=== PATIENT | male | born 1990 | race African-American/Black ===

== ENCOUNTER 2017-05-07 16:43 | Emergency (ER) | payer OTHER ==
[~2017-05-07] VITALS: Ht 175.3 cm; Wt 81.6 kg
[~2017-05-07 16:43] MED LIST: ALPR0.25; BENZ0.5T3; RISP1TAB7
--- NOTE | 2017-05-07 16:50 | NUR ---
aaox3, came to ER for medical clearance. patient is going to [facility] for voluntary admission. Denies any SI or HI at this moment. Skin is warm and non diaphoretic. Resp is even and unlabored with NAD noted. Awaiting MD for eval.
[2017-05-07 17:10] LABS: APPEARANCE,URINE Clear (CLEAR); BILIRUBIN,URINE Negative (NEGATIVE); BLOOD, URINE Negative Ery/uL (NEGATIVE); COLOR,URINE Yellow (YELLOW); KETONES,URINE Negative (NEGATIVE); LEUKOCYTE ESTERASE ,URINE Negative (NEGATIVE); NITRITE, URINE Negative (NEGATIVE); PH,URINE 5.5 (5.0-8.0); PROTEIN,URINE Negative (NEGATIVE); UGLUCOSE Negative (NEGATIVE); UROBILINOGEN,URINE 0.2 EU/dL (0.2)
[2017-05-07 17:17] LABS: BASOPHILS # (AUTO) 0.2 /CMM (0.0-0.2); BASOPHILS % (AUTO) 2.6 % (0.0-2.0); EOSINOPHILS # (AUTO) 0.7 /CMM (0.0-0.7); EOSINOPHILS % (AUTO) 9.4 % (0.0-6.0); HEMATOCRIT 44 % (39-51); HEMOGLOBIN 14.8 g/dL (13.5-17.5); LYMPHOCYTES # (AUTO) 2.4 /CMM (0.8-4.8); LYMPHOCYTES % (AUTO) 32.1 % (20.0-44.0); MEAN CORPUSCULAR HEMOGLOBIN 29 PG (26.0-33.0); MEAN CORPUSCULAR HGB CONC 34 g/dl (31.0-36.0); MEAN CORPUSCULAR VOLUME 86 fL (80-96); MONOCYTES # (AUTO) 0.6 /CMM (0.1-1.30); MONOCYTES % (AUTO) 8.4 % (2.0-12.0); NEUTROPHILS # (AUTO) 3.4 /CMM (1.8-8.9); NEUTROPHILS % (AUTO) 47.5 % (43.0-81.0); PLATELET COUNT (AUTO) 221 /CMM (150-450); RDW COEFFICIENT OF VARIATION 12.8 (11.5-15.0); RED BLOOD CELL COUNT(AUTO) 5.11 MIL/uL (4.5-6.0); WHITE BLOOD COUNT (AUTO) 7.4 K/uL (4.3-11.0)
[2017-05-07 17:23] LABS: CALCIUM, SERUM 8.4 mg/dL (8.5-10.1); CARBON DIOXIDE 29 mmol/L (21-32); CHLORIDE 105 mmol/L (98-107); CREATININE 0.8 mg/dL (0.6-1.3); GLUCOSE 95 mg/dL (74-106); POTASSIUM 3.7 mmol/L (3.5-5.1); SODIUM SERUM 139 mmol/L (136-145); UREA NITROGEN, BLOOD 7 mg/dL (7-18)
[2017-05-07 17:29] LABS: ALANINE AMINOTRANSFERASE 27 U/L (12-78); ALBUMIN 3.5 g/dL (3.4-5.0); ALCOHOL, BLOOD < 3 mg/dL (0-0); ALKALINE PHOSPHATASE 54 U/L (46-116); ASPARTATE AMINOTRANSFERASE 19 U/L (15-37); BILIRUBIN,DIRECT 0.1 mg/dL (0.0-0.2); BILIRUBIN,TOTAL 0.4 mg/dL (0.2-1.0); TOTAL PROTEIN, SERUM 6.4 g/dL (6.4-8.2)
[2017-05-07 17:32] LABS: ACETAMINOPHEN < 2 ug/ml (10-30); SALICYLATE < 2.8 mg/dL (2.8-20.0)
[2017-05-07 19:43] VITALS: BP 113/66
== END 2017-05-07 19:46 | disposition home or self-care (01) ==
LOC: ER 16:45
DX: F29 Unspecified psychosis not due to a substance or known physiological condition (principal); F20.9 Schizophrenia, unspecified; F31.9 Bipolar disorder, unspecified; F41.9 Anxiety disorder, unspecified; F17.200 Nicotine dependence, unspecified, uncomplicated; F12.10 Cannabis abuse, uncomplicated
CPT/HCPCS: 36415; 80048-TC; 80076-TC; 80305; 81000-TC; 85025-TC; A4606; G0480; Z7610

== ENCOUNTER 2017-06-05 14:46 | Emergency (ER) | payer OTHER ==
[~2017-06-05] VITALS: Ht 175.3 cm; Wt 77.1 kg
--- NOTE | 2017-06-05 15:00 | NUR ---
WALKED IN FROM [facility] FOR MEDICAL CLEARANCE PRIOR TO VOLUNTARY PSYCH ADMISSIONS. DENIES ANY MEDICAL COMPLAINT.
--- NOTE | 2017-06-05 15:35 | NUR ---
dr hernandez at bedside for eval.
[2017-06-05 15:50] LABS: APPEARANCE,URINE Clear (CLEAR); BILIRUBIN,URINE Negative (NEGATIVE); BLOOD, URINE Negative Ery/uL (NEGATIVE); KETONES,URINE Trace (NEGATIVE); LEUKOCYTE ESTERASE ,URINE Negative (NEGATIVE); NITRITE, URINE Negative (NEGATIVE); PROTEIN,URINE Trace mg/dl (NEGATIVE); UGLUCOSE Negative (NEGATIVE)
[2017-06-05 15:51] LABS: BASOPHILS # (AUTO) 0.1 /CMM (0.0-0.2); EOSINOPHILS # (AUTO) 0.7 /CMM (0.0-0.7); EOSINOPHILS % (AUTO) 9.9 % (0.0-6.0); HEMATOCRIT 44 % (39-51); HEMOGLOBIN 14.8 g/dL (13.5-17.5); LYMPHOCYTES # (AUTO) 2.1 /CMM (0.8-4.8); LYMPHOCYTES % (AUTO) 30.1 % (20.0-44.0); MEAN CORPUSCULAR HEMOGLOBIN 28 PG (26.0-33.0); MEAN CORPUSCULAR HGB CONC 33 g/dl (31.0-36.0); MEAN CORPUSCULAR VOLUME 85 fL (80-96); MONOCYTES # (AUTO) 0.4 /CMM (0.1-1.30); MONOCYTES % (AUTO) 5.9 % (2.0-12.0); NEUTROPHILS # (AUTO) 3.8 /CMM (1.8-8.9); NEUTROPHILS % (AUTO) 53.1 % (43.0-81.0); PLATELET COUNT (AUTO) 235 /CMM (150-450); RED BLOOD CELL COUNT(AUTO) 5.22 MIL/uL (4.5-6.0); WHITE BLOOD COUNT (AUTO) 7.1 K/uL (4.3-11.0)
[2017-06-05 15:57] LABS: COLOR,URINE Dark Yellow (YELLOW)
[2017-06-05 16:05] LABS: CALCIUM, SERUM 8.7 mg/dL (8.5-10.1); CARBON DIOXIDE 31 mmol/L (21-32); CHLORIDE 108 mmol/L (98-107); GLUCOSE 110 mg/dL (74-106); POTASSIUM 4.1 mmol/L (3.5-5.1); SODIUM SERUM 144 mmol/L (136-145); UREA NITROGEN, BLOOD 9 mg/dL (7-18)
[2017-06-05 16:06] LABS: BACTERIA,URINE Few /HPF (None Seen); MUCUS,URINE Few /LPF (None Seen); RBC,URINE 0-2 /HPF (0-2); SQUAMOUS EPITHELIAL CELL,UR Rare /HPF (None Seen); URINE AMORPHOUS URATE Moderate /HPF (None Seen); WBC,URINE 0-2 /HPF (0-3)
[2017-06-05 16:10] LABS: ACETAMINOPHEN 0 ug/ml (10-30); ALANINE AMINOTRANSFERASE 24 U/L (12-78); ALBUMIN 3.9 g/dL (3.4-5.0); ALCOHOL, BLOOD < 3 mg/dL (0-0); ALKALINE PHOSPHATASE 63 U/L (46-116); ASPARTATE AMINOTRANSFERASE 19 U/L (15-37); BILIRUBIN,DIRECT 0.1 mg/dL (0.0-0.2); BILIRUBIN,TOTAL 0.4 mg/dL (0.2-1.0); SALICYLATE 1.8 mg/dL (2.8-20.0); TOTAL PROTEIN, SERUM 8.3 g/dL (6.4-8.2)
--- NOTE | 2017-06-05 17:15 | NUR ---
CALLED [facility] FOR TRANSPORT ETA OF 40 MINS WAS GIVEN.
--- NOTE | 2017-06-05 17:49 | NUR ---
JATINDER GONZALES FROM [facility] PATIENT WILL BE ACCEPTED INTO UNIT [phone] TO GIVE REPORT.
--- NOTE | 2017-06-05 18:03 | NUR ---
report given at [facility]. pt transfered. stable condition.
[2017-06-05 18:04] VITALS: BP 128/84
== END 2017-06-05 18:05 ==
LOC: ER 14:51
DX: R45.851 Suicidal ideations (principal); F20.9 Schizophrenia, unspecified; F12.10 Cannabis abuse, uncomplicated; F17.200 Nicotine dependence, unspecified, uncomplicated
CPT/HCPCS: 36415; 80048-TC; 80076-TC; 80305; 81000-TC; 85025-TC; A4606; G0480; Z7610

== ENCOUNTER 2017-06-29 17:25 | Emergency (ER) | payer OTHER ==
[~2017-06-29] VITALS: Ht 177.8 cm; Wt 68.0 kg
--- NOTE | 2017-06-29 17:32 | NUR ---
PRESENTS SELF TO ED FOR MEDICAL CLEARANCE- FOR PSYCH ADMISSION WITH PLAN TO RUN ON TRAFFIC. PATIENT IS AA04. VSS,
--- NOTE | 2017-06-29 17:39 | NUR ---
MD PETERS AT BEDSIDE FOR EVAL
--- NOTE | 2017-06-29 17:39 | NUR ---
PINKY RN AT BEDSIDE FOR EVAL
--- NOTE | 2017-06-29 17:40 | NUR ---
URINE OBTAINED SENT TO LAB
[2017-06-29 18:05] LABS: BASOPHILS # (AUTO) 0.1 /CMM (0.0-0.2); BASOPHILS % (AUTO) 0.9 % (0.0-2.0); EOSINOPHILS # (AUTO) 0.9 /CMM (0.0-0.7); EOSINOPHILS % (AUTO) 10.8 % (0.0-6.0); HEMATOCRIT 50 % (39-51); HEMOGLOBIN 16.5 g/dL (13.5-17.5); LYMPHOCYTES # (AUTO) 2.5 /CMM (0.8-4.8); LYMPHOCYTES % (AUTO) 30.7 % (20.0-44.0); MEAN CORPUSCULAR HEMOGLOBIN 28 PG (26.0-33.0); MEAN CORPUSCULAR HGB CONC 33 g/dl (31.0-36.0); MEAN CORPUSCULAR VOLUME 86 fL (80-96); MONOCYTES # (AUTO) 0.7 /CMM (0.1-1.30); MONOCYTES % (AUTO) 8.9 % (2.0-12.0); NEUTROPHILS # (AUTO) 3.9 /CMM (1.8-8.9); NEUTROPHILS % (AUTO) 48.7 % (43.0-81.0); PLATELET COUNT (AUTO) 260 /CMM (150-450); RDW COEFFICIENT OF VARIATION 13.6 (11.5-15.0); RED BLOOD CELL COUNT(AUTO) 5.81 MIL/uL (4.5-6.0); WHITE BLOOD COUNT (AUTO) 8.1 K/uL (4.3-11.0)
[2017-06-29 18:08] LABS: APPEARANCE,URINE Clear (CLEAR); BILIRUBIN,URINE Negative (NEGATIVE); BLOOD, URINE Negative Ery/uL (NEGATIVE); COLOR,URINE Yellow (YELLOW); KETONES,URINE Negative (NEGATIVE); LEUKOCYTE ESTERASE ,URINE Negative (NEGATIVE); NITRITE, URINE Negative (NEGATIVE); PROTEIN,URINE Negative (NEGATIVE); UGLUCOSE Negative (NEGATIVE); UROBILINOGEN,URINE 0.2 EU/dL (0.2)
[2017-06-29 18:15] LABS: CALCIUM, SERUM 8.3 mg/dL (8.5-10.1); CARBON DIOXIDE 26 mmol/L (21-32); CHLORIDE 106 mmol/L (98-107); CREATININE 1.1 mg/dL (0.6-1.3); GLUCOSE 132 mg/dL (74-106); POTASSIUM 3.5 mmol/L (3.5-5.1); SODIUM SERUM 140 mmol/L (136-145); UREA NITROGEN, BLOOD 8 mg/dL (7-18)
[2017-06-29 18:21] LABS: ALANINE AMINOTRANSFERASE 22 U/L (12-78); ALBUMIN 3.5 g/dL (3.4-5.0); ALKALINE PHOSPHATASE 63 U/L (46-116); ASPARTATE AMINOTRANSFERASE 21 U/L (15-37); BILIRUBIN,DIRECT 0.1 mg/dL (0.0-0.2); BILIRUBIN,TOTAL 0.4 mg/dL (0.2-1.0); TOTAL PROTEIN, SERUM 6.3 g/dL (6.4-8.2)
[2017-06-29 18:22] LABS: ACETAMINOPHEN < 10 ug/ml (10-30); ALCOHOL, BLOOD < 3 mg/dL (0-0)
[2017-06-29 20:51] VITALS: BP 120/70
--- NOTE | 2017-06-29 20:52 | NUR ---
Patient discharged to home in stable condition. Written and verbal after care instructions given. Patient verbalizes understanding of instruction.
== END 2017-06-29 20:52 | disposition home or self-care (01) ==
LOC: ER 17:30
DX: F32.9 Major depressive disorder, single episode, unspecified (principal); F20.9 Schizophrenia, unspecified; F41.9 Anxiety disorder, unspecified; F17.200 Nicotine dependence, unspecified, uncomplicated
CPT/HCPCS: 36415; 80048; 80076; 80305; 80329; 81001; 85025; 99284; A4606; G0480 ×2; Z7610; 81000-TC

== ENCOUNTER 2017-07-07 19:16 | Emergency (ER) | payer OTHER ==
[~2017-07-07] VITALS: Ht 177.8 cm; Wt 72.6 kg
--- NOTE | 2017-07-07 20:04 | NUR ---
PATIENT RETURED TO ER, FEELING SUICIDAL. DR GUARDADO SPOKE WITH PATIENT. PATIENT ASSIGNED TO BED 7, AAOX3, AMBULATORY WITH STEADY GAIT, VSS. NAD NOTED. SAFETY AND SUICIDAL PRECAUTIONS IN PLACE.
--- NOTE | 2017-07-07 20:12 | NUR ---
OR ASSISTANT AT BEDSIDE TO EVAL. Addendum: 07/07/17 at 2011 by ANTON OR ASSISTANT TO DRAW BLOOD.
[2017-07-07 20:17] LABS: BASOPHILS # (AUTO) 0.4 /CMM (0.0-0.2); BASOPHILS % (AUTO) 3.7 % (0.0-2.0); EOSINOPHILS # (AUTO) 0.2 /CMM (0.0-0.7); EOSINOPHILS % (AUTO) 1.9 % (0.0-6.0); HEMATOCRIT 45 % (39-51); HEMOGLOBIN 15.1 g/dL (13.5-17.5); LYMPHOCYTES # (AUTO) 2.6 /CMM (0.8-4.8); LYMPHOCYTES % (AUTO) 25.1 % (20.0-44.0); MEAN CORPUSCULAR HEMOGLOBIN 29 PG (26.0-33.0); MEAN CORPUSCULAR HGB CONC 34 g/dl (31.0-36.0); MEAN CORPUSCULAR VOLUME 86 fL (80-96); MONOCYTES % (AUTO) 9.6 % (2.0-12.0); NEUTROPHILS % (AUTO) 59.7 % (43.0-81.0); PLATELET COUNT (AUTO) 206 /CMM (150-450); RDW COEFFICIENT OF VARIATION 13.4 (11.5-15.0); WHITE BLOOD COUNT (AUTO) 10.2 K/uL (4.3-11.0)
[2017-07-07 20:26] LABS: CALCIUM, SERUM 8.5 mg/dL (8.5-10.1); CARBON DIOXIDE 27 mmol/L (21-32); CHLORIDE 105 mmol/L (98-107); CREATININE 0.9 mg/dL (0.6-1.3); GLUCOSE 100 mg/dL (74-106); POTASSIUM 3.4 mmol/L (3.5-5.1); SODIUM SERUM 139 mmol/L (136-145); UREA NITROGEN, BLOOD 5 mg/dL (7-18)
[2017-07-07 20:28] LABS: ALCOHOL, BLOOD < 3 mg/dL (0-0)
--- NOTE | 2017-07-07 20:44 | NUR ---
KELECHI GARCE FOR PSYCHIATRIC EVALUATION
[2017-07-07 21:55] LABS: APPEARANCE,URINE CLEAR (CLEAR); BILIRUBIN,URINE NEGATIVE (NEGATIVE); BLOOD, URINE TRACE-INTA Ery/uL (NEGATIVE); COLOR,URINE YELLOW (YELLOW); KETONES,URINE NEGATIVE (NEGATIVE); LEUKOCYTE ESTERASE ,URINE NEGATIVE (NEGATIVE); NITRITE, URINE NEGATIVE (NEGATIVE); PH,URINE 6.5 (5.0-8.0); PROTEIN,URINE TRACE mg/dl (NEGATIVE); UGLUCOSE NEGATIVE (NEGATIVE)
--- NOTE | 2017-07-07 21:58 | NUR ---
CALLED [facility] FOR BLS TRANSPORT TO [facility]. ETA 0200.
[2017-07-07 22:01] LABS: BACTERIA,URINE None seen /HPF (None Seen); RBC,URINE 0-2 /HPF (0-2); SQUAMOUS EPITHELIAL CELL,UR 0-2 /HPF (None Seen); WBC,URINE 0-2 /HPF (0-3)
--- NOTE | 2017-07-07 22:25 | NUR ---
PT IS ACCEPTED AT [facility]. NUMBER FOR REPORT IS [id number]
--- NOTE | 2017-07-07 23:18 | NUR ---
Report given to Ryan SHEEHAN at [facility] for transfer and efren.
--- NOTE | 2017-07-08 02:53 | NUR ---
CALLED [facility] 45MINUTE SHOAIB TALKED TO SCARLETT
--- NOTE | 2017-07-08 03:30 | NUR ---
Patient is awake, alert responsive. vss.
[2017-07-08 03:31] VITALS: BP 117/68
--- NOTE | 2017-07-08 03:37 | NUR ---
Spoke with Ryan SHEEHAN and said patient is going to room 323.
--- NOTE | 2017-07-08 03:41 | NUR ---
Patient picked up by [facility], no further complaints from patient.
== END 2017-07-08 03:43 | disposition short-term general hospital (02) ==
LOC: ER 19:25
DX: Z76.0 Encounter for issue of repeat prescription (principal); Z00.8 Encounter for other general examination; F31.9 Bipolar disorder, unspecified; F41.9 Anxiety disorder, unspecified; F20.9 Schizophrenia, unspecified; F17.200 Nicotine dependence, unspecified, uncomplicated; Z98.890 Other specified postprocedural states
CPT/HCPCS: 36415; 80048; 80305; 81001; 85025; 99285; A4606; G0480; Z7610; 81000-TC

== ENCOUNTER 2017-07-18 21:16 | Emergency (ER) | payer OTHER ==
[~2017-07-18] VITALS: Ht 172.7 cm; Wt 75.7 kg
--- NOTE | 2017-07-18 21:42 | NUR ---
BB SELF HERE FOR MEDICAL CLEARANCE FOR PSYCH ADMISSION IN [place]. STATES "THEY SENT ME HERE TO BE CLEARED". DENIES ANY MEDICAL C/O AT THIS TIME. RESP EVEN AND UNLABORED. NON DIAPHORETIC. CALM AND COOPERATIVE.
--- NOTE | 2017-07-18 22:00 | NUR ---
CALLED [facility] AND SPOKE TO YANELIS VEGA AND ADMITS "WE HAVE A BED FOR HIM; JUST NEEDS TO BE MEDICALLY CLEARED AND RESULTS FAXED".
[2017-07-18 22:01] LABS: BASOPHILS # (AUTO) 0.1 /CMM (0.0-0.2); EOSINOPHILS # (AUTO) 0.9 /CMM (0.0-0.7); EOSINOPHILS % (AUTO) 10.4 % (0.0-6.0); HEMATOCRIT 44 % (39-51); HEMOGLOBIN 15.1 g/dL (13.5-17.5); LYMPHOCYTES # (AUTO) 2.5 /CMM (0.8-4.8); LYMPHOCYTES % (AUTO) 28.8 % (20.0-44.0); MEAN CORPUSCULAR HEMOGLOBIN 29 PG (26.0-33.0); MEAN CORPUSCULAR HGB CONC 34 g/dl (31.0-36.0); MEAN CORPUSCULAR VOLUME 85 fL (80-96); MONOCYTES # (AUTO) 0.5 /CMM (0.1-1.30); MONOCYTES % (AUTO) 5.9 % (2.0-12.0); NEUTROPHILS # (AUTO) 4.6 /CMM (1.8-8.9); NEUTROPHILS % (AUTO) 53.9 % (43.0-81.0); PLATELET COUNT (AUTO) 257 /CMM (150-450); RDW COEFFICIENT OF VARIATION 13.2 (11.5-15.0); RED BLOOD CELL COUNT(AUTO) 5.18 MIL/uL (4.5-6.0); WHITE BLOOD COUNT (AUTO) 8.6 K/uL (4.3-11.0)
[2017-07-18 22:20] LABS: CARBON DIOXIDE 26 mmol/L (21-32); CHLORIDE 105 mmol/L (98-107); CREATININE 0.9 mg/dL (0.6-1.3); GLUCOSE 135 mg/dL (74-106); POTASSIUM 3.2 mmol/L (3.5-5.1); SODIUM SERUM 143 mmol/L (136-145); UREA NITROGEN, BLOOD 6 mg/dL (7-18)
[2017-07-18 22:26] LABS: ALANINE AMINOTRANSFERASE 27 U/L (12-78); ALBUMIN 3.7 g/dL (3.4-5.0); ALKALINE PHOSPHATASE 73 U/L (46-116); ASPARTATE AMINOTRANSFERASE 21 U/L (15-37); BILIRUBIN,DIRECT 0.1 mg/dL (0.0-0.2); BILIRUBIN,TOTAL 0.5 mg/dL (0.2-1.0); TOTAL PROTEIN, SERUM 7.2 g/dL (6.4-8.2)
[2017-07-18 22:27] LABS: ACETAMINOPHEN 0 ug/ml (10-30); ALCOHOL, BLOOD < 3 mg/dL (0-0)
--- NOTE | 2017-07-18 22:50 | NUR ---
FAXED INFOR REQUESTED TO YANELIS AT [phone]
--- NOTE | 2017-07-18 23:04 | NUR ---
YANELIS FROM [facility] RECEIVED FAX; INSTRUCTED MAY CALL THE NURSING STATION IN APPROXIMATELY 20 MINS.
--- NOTE | 2017-07-18 23:51 | NUR ---
CALLED AND SPOKE TO ASAD/SISSY AT [place]. STATES "I RECEIVED THE FAX AND WILL CALL IN 20MINUTES".
--- NOTE | 2017-07-19 00:33 | NUR ---
REPORT GIVEN TO JENNIFER/RN FOR VERÓNICA.
--- NOTE | 2017-07-19 00:57 | NUR ---
Patient discharged in stable condition. Written and verbal after care instructions given. Patient verbalizes understanding of instruction. Patient is ambulatory with steady gait, going to [place] for psychiatric evaluation via taxi. No further complaints.
[2017-07-19 00:58] VITALS: BP 121/79
== END 2017-07-19 00:59 ==
LOC: ER 21:18
DX: Z00.8 Encounter for other general examination (principal); F32.9 Major depressive disorder, single episode, unspecified
CPT/HCPCS: 36415; 80048; 80076; 80305; 80329; 85025; 99284; A4606; G0480 ×2; Z7610

== ENCOUNTER 2017-08-15 00:13 | Emergency (ER) | payer OTHER ==
[~2017-08-15] VITALS: Ht 172.7 cm; Wt 81.6 kg
[2017-08-15 00:25] VITALS: BP 108/65
--- NOTE | 2017-08-15 00:25 | NUR ---
pt to er requesting medical clearance for admission to [facility]. No immediate signs of distress noted. pt vital signs within normal limits. pt states that he has been depressed. pt to er bed anc changed into gown. si precautions implemented. will cont to monitor pt .
[2017-08-15 00:55] LABS: BASOPHILS % (AUTO) 0.4 % (0.0-2.0); EOSINOPHILS # (AUTO) 0.5 /CMM (0.0-0.7); EOSINOPHILS % (AUTO) 4.6 % (0.0-6.0); HEMATOCRIT 46 % (39-51); HEMOGLOBIN 15.2 g/dL (13.5-17.5); LYMPHOCYTES # (AUTO) 3.2 /CMM (0.8-4.8); LYMPHOCYTES % (AUTO) 32.7 % (20.0-44.0); MEAN CORPUSCULAR HEMOGLOBIN 29 PG (26.0-33.0); MEAN CORPUSCULAR HGB CONC 33 g/dl (31.0-36.0); MEAN CORPUSCULAR VOLUME 87 fL (80-96); MONOCYTES # (AUTO) 0.9 /CMM (0.1-1.30); MONOCYTES % (AUTO) 9.1 % (2.0-12.0); NEUTROPHILS # (AUTO) 5.2 /CMM (1.8-8.9); NEUTROPHILS % (AUTO) 53.2 % (43.0-81.0); PLATELET COUNT (AUTO) 250 /CMM (150-450); RDW COEFFICIENT OF VARIATION 14.4 (11.5-15.0); WHITE BLOOD COUNT (AUTO) 9.8 K/uL (4.3-11.0)
[2017-08-15 01:02] LABS: CALCIUM, SERUM 8.6 mg/dL (8.5-10.1); CARBON DIOXIDE 29 mmol/L (21-32); CHLORIDE 107 mmol/L (98-107); CREATININE 0.8 mg/dL (0.6-1.3); GLUCOSE 101 mg/dL (74-106); POTASSIUM 3.5 mmol/L (3.5-5.1); SODIUM SERUM 143 mmol/L (136-145); UREA NITROGEN, BLOOD 7 mg/dL (7-18)
[2017-08-15 01:09] LABS: ACETAMINOPHEN 0 ug/ml (10-30); ALANINE AMINOTRANSFERASE 27 U/L (12-78); ALBUMIN 3.6 g/dL (3.4-5.0); ALCOHOL, BLOOD < 3 mg/dL (0-0); ALKALINE PHOSPHATASE 69 U/L (46-116); ASPARTATE AMINOTRANSFERASE 18 U/L (15-37); BILIRUBIN,DIRECT 0.1 mg/dL (0.0-0.2); BILIRUBIN,TOTAL 0.3 mg/dL (0.2-1.0); TOTAL PROTEIN, SERUM 6.7 g/dL (6.4-8.2)
[2017-08-15 01:38] LABS: APPEARANCE,URINE CLEAR (CLEAR); BILIRUBIN,URINE 1+ (NEGATIVE); BLOOD, URINE NEGATIVE Ery/uL (NEGATIVE); COLOR,URINE YELLOW (YELLOW); KETONES,URINE NEGATIVE (NEGATIVE); LEUKOCYTE ESTERASE ,URINE NEGATIVE (NEGATIVE); NITRITE, URINE NEGATIVE (NEGATIVE); PROTEIN,URINE NEGATIVE (NEGATIVE); UGLUCOSE NEGATIVE (NEGATIVE)
[2017-08-15 02:05] LABS: BACTERIA,URINE None seen /HPF (None Seen); CALCIUM OXALATE CRYSTALS,UR Many /HPF (None Seen); RBC,URINE NONE SEEN /HPF (0-2); SQUAMOUS EPITHELIAL CELL,UR Rare /HPF (None Seen); WBC,URINE 0-2 /HPF (0-3)
[2017-08-15 02:06] LABS: MUCUS,URINE Many /LPF (None Seen)
--- NOTE | 2017-08-15 03:47 | NUR ---
pt accepted by dr schultz at [facility]. .
--- NOTE | 2017-08-15 03:58 | NUR ---
Jose Daniel called for transport to [facility]. ETA 60 min.
--- NOTE | 2017-08-15 04:40 | NUR ---
milagros at bedside for transport to [facility].
== END 2017-08-15 05:02 ==
LOC: ER 00:15
DX: F31.9 Bipolar disorder, unspecified (principal); F41.9 Anxiety disorder, unspecified; F20.9 Schizophrenia, unspecified; F17.200 Nicotine dependence, unspecified, uncomplicated; Z98.890 Other specified postprocedural states
CPT/HCPCS: 36415; 80048; 80076; 80305; 80329; 81001; 85025; 99285; A4606; G0480 ×2; Z7610; 81000-TC

== ENCOUNTER 2017-08-28 20:46 | Emergency (ER) | payer OTHER ==
[~2017-08-28] VITALS: Ht 175.3 cm; Wt 70.8 kg
[2017-08-28 21:30] VITALS: BP 119/56
[2017-08-28 21:56] LABS: BASOPHILS % (AUTO) 0.4 % (0.0-2.0); EOSINOPHILS # (AUTO) 1.2 /CMM (0.0-0.7); EOSINOPHILS % (AUTO) 13.6 % (0.0-6.0); HEMATOCRIT 48 % (39-51); HEMOGLOBIN 15.8 g/dL (13.5-17.5); LYMPHOCYTES # (AUTO) 2.5 /CMM (0.8-4.8); LYMPHOCYTES % (AUTO) 27.5 % (20.0-44.0); MEAN CORPUSCULAR HEMOGLOBIN 29 PG (26.0-33.0); MEAN CORPUSCULAR HGB CONC 33 g/dl (31.0-36.0); MEAN CORPUSCULAR VOLUME 87 fL (80-96); MONOCYTES # (AUTO) 0.7 /CMM (0.1-1.30); MONOCYTES % (AUTO) 7.9 % (2.0-12.0); NEUTROPHILS # (AUTO) 4.6 /CMM (1.8-8.9); NEUTROPHILS % (AUTO) 50.6 % (43.0-81.0); PLATELET COUNT (AUTO) 242 /CMM (150-450); RDW COEFFICIENT OF VARIATION 14.4 (11.5-15.0); RED BLOOD CELL COUNT(AUTO) 5.51 MIL/uL (4.5-6.0)
[2017-08-28 22:09] LABS: CALCIUM, SERUM 9.4 mg/dL (8.5-10.1); CARBON DIOXIDE 33 mmol/L (21-32); CHLORIDE 108 mmol/L (98-107); CREATININE 0.9 mg/dL (0.6-1.3); GLUCOSE 108 mg/dL (74-106); POTASSIUM 3.7 mmol/L (3.5-5.1); SODIUM SERUM 144 mmol/L (136-145); UREA NITROGEN, BLOOD 4 mg/dL (7-18)
[2017-08-28 22:14] LABS: ACETAMINOPHEN 0 ug/ml (10-30); ALANINE AMINOTRANSFERASE 26 U/L (12-78); ALBUMIN 3.8 g/dL (3.4-5.0); ALCOHOL, BLOOD < 3 mg/dL (0-0); ALKALINE PHOSPHATASE 62 U/L (46-116); ASPARTATE AMINOTRANSFERASE 21 U/L (15-37); BILIRUBIN,DIRECT 0.1 mg/dL (0.0-0.2); BILIRUBIN,TOTAL 0.4 mg/dL (0.2-1.0); SALICYLATE 2.7 mg/dL (2.8-20.0); TOTAL PROTEIN, SERUM 6.8 g/dL (6.4-8.2)
== END 2017-08-28 22:48 | disposition home or self-care (01) ==
LOC: ER 20:54
DX: Z02.89 Encounter for other administrative examinations (principal); F20.9 Schizophrenia, unspecified; F41.9 Anxiety disorder, unspecified; F31.9 Bipolar disorder, unspecified; F17.200 Nicotine dependence, unspecified, uncomplicated
CPT/HCPCS: 36415; 80048; 80076; 80305; 80329; 85025; 99284; A4606; G0480 ×2; Z7610

== ENCOUNTER 2017-09-23 00:07 | Emergency (ER) | payer MEDICARE, OTHER ==
[~2017-09-23] VITALS: Ht 172.7 cm; Wt 63.5 kg
--- NOTE | 2017-09-23 00:30 | NUR ---
PT BIB SELF AMBULATORY TO ER BED 8, PT STATES HE STOPPED TAKING HIS PSYCH MEDS AND IS NOW SEEING THINGS AND HEARING VOICES. VSS/RESP EVEN UNLABORED/NAD NOTED. AWAITING MD DONALDSON.
[2017-09-23] MEDS ORDERED: OLANZAPINE 5 MG TABLET ONE (00:43)
[2017-09-23] MEDS: OLANZAPINE 5 MG/TAB.RAPDIS PO ONE (00:46)
[2017-09-23 00:47] LABS: APPEARANCE,URINE CLEAR (CLEAR); BILIRUBIN,URINE NEGATIVE (NEGATIVE); BLOOD, URINE NEGATIVE Ery/uL (NEGATIVE); COLOR,URINE YELLOW (YELLOW); KETONES,URINE NEGATIVE (NEGATIVE); LEUKOCYTE ESTERASE ,URINE NEGATIVE (NEGATIVE); NITRITE, URINE NEGATIVE (NEGATIVE); PROTEIN,URINE NEGATIVE (NEGATIVE); UGLUCOSE NEGATIVE (NEGATIVE)
[2017-09-23 00:48] LABS: BASOPHILS % (AUTO) 0.5 % (0.0-2.0); EOSINOPHILS % (AUTO) 10.2 % (0.0-6.0); HEMATOCRIT 50 % (39-51); HEMOGLOBIN 16.6 g/dL (13.5-17.5); LYMPHOCYTES % (AUTO) 31.3 % (20.0-44.0); MEAN CORPUSCULAR HEMOGLOBIN 28 PG (26.0-33.0); MEAN CORPUSCULAR HGB CONC 33 g/dl (31.0-36.0); MEAN CORPUSCULAR VOLUME 86 fL (80-96); MONOCYTES # (AUTO) 0.8 /CMM (0.1-1.30); MONOCYTES % (AUTO) 8.6 % (2.0-12.0); NEUTROPHILS # (AUTO) 4.7 /CMM (1.8-8.9); NEUTROPHILS % (AUTO) 49.4 % (43.0-81.0); PLATELET COUNT (AUTO) 272 /CMM (150-450); RDW COEFFICIENT OF VARIATION 13.3 (11.5-15.0); RED BLOOD CELL COUNT(AUTO) 5.87 MIL/uL (4.5-6.0); WHITE BLOOD COUNT (AUTO) 9.5 K/uL (4.3-11.0)
[2017-09-23 00:55] LABS: BACTERIA,URINE None seen /HPF (None Seen); CALCIUM, SERUM 9.2 mg/dL (8.5-10.1); CARBON DIOXIDE 27 mmol/L (21-32); CHLORIDE 104 mmol/L (98-107); CREATININE 0.9 mg/dL (0.6-1.3); GLUCOSE 107 mg/dL (74-106); POTASSIUM 3.9 mmol/L (3.5-5.1); RBC,URINE NONE SEEN /HPF (0-2); SODIUM SERUM 139 mmol/L (136-145); SQUAMOUS EPITHELIAL CELL,UR Few /HPF (None Seen); UREA NITROGEN, BLOOD 7 mg/dL (7-18); WBC,URINE 0-2 /HPF (0-3)
[2017-09-23 01:03] LABS: ACETAMINOPHEN 0 ug/ml (10-30); ALANINE AMINOTRANSFERASE 39 U/L (12-78); ALBUMIN 3.6 g/dL (3.4-5.0); ALCOHOL, BLOOD < 3 mg/dL (0-0); ALKALINE PHOSPHATASE 64 U/L (46-116); ASPARTATE AMINOTRANSFERASE 23 U/L (15-37); BILIRUBIN,TOTAL 0.3 mg/dL (0.2-1.0); SALICYLATE 1.9 mg/dL (2.8-20.0); TOTAL PROTEIN, SERUM 6.7 g/dL (6.4-8.2)
--- NOTE | 2017-09-23 01:55 | NUR ---
PT A/OX4 BREATHING EFFORTLESSLY ON ROOM AIR, PT GIVEN LABS AND ACI, PT STATES HE IS GOING TO CALL A CAB TO GET TO [facility], PT GIVEN ACI AND WALKED OUT OF THE ER WITH A STEADY GAIT
[2017-09-23 01:57] VITALS: BP 114/69
== END 2017-09-23 01:58 | disposition home or self-care (01) ==
LOC: ER 00:07
DX: R44.0 Auditory hallucinations (principal); F20.9 Schizophrenia, unspecified; F10.10 Alcohol abuse, uncomplicated; F17.200 Nicotine dependence, unspecified, uncomplicated; Z91.19 Patient's noncompliance with other medical treatment and regimen; Z98.890 Other specified postprocedural states
CPT/HCPCS: 36415; 80048-TC; 80076-TC; 80305; 81000-TC; 85025-TC; A4606; G0480; Z7610

== ENCOUNTER 2017-10-02 19:37 | Emergency (ER) | payer MEDICARE, OTHER ==
[~2017-10-02] VITALS: Ht 175.3 cm; Wt 81.6 kg
--- NOTE | 2017-10-02 20:10 | NUR ---
Pt BIB SELF FOR MEDICAL CLEARANCE AT PSYCH, FOR VOLUNTARY ADMISSION. Pt DENIES SUIDICAL IDEATIONS. BUT IS C/O SEEING AND HEARING VOICES TELLING HIM TO RUN INTO TRAFFIC. Pt IS WAITING IN ER BED 16. NO S/S OF ACUTE DISTRESS OR SOB NOTED. VS STABLE.
[2017-10-02 20:32] LABS: BASOPHILS # (AUTO) 0.1 /CMM (0.0-0.2); BASOPHILS % (AUTO) 0.5 % (0.0-2.0); EOSINOPHILS # (AUTO) 1.2 /CMM (0.0-0.7); EOSINOPHILS % (AUTO) 11.5 % (0.0-6.0); HEMATOCRIT 45 % (39-51); HEMOGLOBIN 15.1 g/dL (13.5-17.5); LYMPHOCYTES # (AUTO) 2.5 /CMM (0.8-4.8); LYMPHOCYTES % (AUTO) 24.7 % (20.0-44.0); MEAN CORPUSCULAR HEMOGLOBIN 29 PG (26.0-33.0); MEAN CORPUSCULAR HGB CONC 34 g/dl (31.0-36.0); MEAN CORPUSCULAR VOLUME 85 fL (80-96); MONOCYTES # (AUTO) 0.8 /CMM (0.1-1.30); MONOCYTES % (AUTO) 7.7 % (2.0-12.0); NEUTROPHILS # (AUTO) 5.5 /CMM (1.8-8.9); NEUTROPHILS % (AUTO) 55.6 % (43.0-81.0); PLATELET COUNT (AUTO) 232 /CMM (150-450); RDW COEFFICIENT OF VARIATION 13.2 (11.5-15.0); RED BLOOD CELL COUNT(AUTO) 5.25 MIL/uL (4.5-6.0); WHITE BLOOD COUNT (AUTO) 10.1 K/uL (4.3-11.0)
[2017-10-02 20:40] LABS: CALCIUM, SERUM 9.1 mg/dL (8.5-10.1); CARBON DIOXIDE 26 mmol/L (21-32); CHLORIDE 105 mmol/L (98-107); CREATININE 0.8 mg/dL (0.6-1.3); GLUCOSE 113 mg/dL (74-106); POTASSIUM 3.6 mmol/L (3.5-5.1); SODIUM SERUM 139 mmol/L (136-145); UREA NITROGEN, BLOOD 6 mg/dL (7-18)
[2017-10-02 20:46] LABS: ALANINE AMINOTRANSFERASE 42 U/L (12-78); ALBUMIN 3.5 g/dL (3.4-5.0); ALCOHOL, BLOOD < 3 mg/dL (0-0); ALKALINE PHOSPHATASE 57 U/L (46-116); ASPARTATE AMINOTRANSFERASE 27 U/L (15-37); BILIRUBIN,DIRECT 0.1 mg/dL (0.0-0.2); BILIRUBIN,TOTAL 0.3 mg/dL (0.2-1.0); TOTAL PROTEIN, SERUM 6.4 g/dL (6.4-8.2)
[2017-10-02 20:54] LABS: APPEARANCE,URINE Clear (CLEAR); BILIRUBIN,URINE Negative (NEGATIVE); BLOOD, URINE Negative Ery/uL (NEGATIVE); COLOR,URINE Yellow (YELLOW); KETONES,URINE Negative (NEGATIVE); LEUKOCYTE ESTERASE ,URINE Negative (NEGATIVE); NITRITE, URINE Negative (NEGATIVE); PH,URINE 5.5 (5.0-8.0); PROTEIN,URINE Negative (NEGATIVE); UGLUCOSE Negative (NEGATIVE); UROBILINOGEN,URINE 0.2 EU/dL (0.2)
--- NOTE | 2017-10-02 22:00 | NUR ---
CALLED ART FOR EVAL
--- NOTE | 2017-10-02 22:28 | NUR ---
CYNTHIA ARIAS, CAMP COUNSELOR AT BEDSIDE FOR EVAL
--- NOTE | 2017-10-02 22:48 | NUR ---
Patient is resting comfortably in bed. VSS.
--- NOTE | 2017-10-02 23:47 | NUR ---
Patient discharged to home in stable condition. Written and verbal after care instructions given. Patient verbalizes understanding of instruction. DC WITH A TAXI VOUCHER.
== END 2017-10-02 23:48 | disposition home or self-care (01) ==
LOC: ER 19:41
DX: R45.851 Suicidal ideations (principal); F29 Unspecified psychosis not due to a substance or known physiological condition; F32.9 Major depressive disorder, single episode, unspecified; F20.9 Schizophrenia, unspecified
CPT/HCPCS: 36415; 80048; 80076; 80305; 81001; 85025; 99284; A4606; G0480; 81000-TC; Z7610

== ENCOUNTER 2017-10-13 | Emergency (ER) | payer MEDICARE, OTHER ==
[~2017-10-13] VITALS: Ht 172.7 cm; Wt 72.6 kg
--- NOTE | 2017-10-13 00:10 | NUR ---
TO BED 3 A 27 YO MALE PT BIB SELF, PT STATES HE WANTS TO WALK INTO TRAFFIC AND KILL HIMSELF, DENIES HI. PATIENT IS ALERT AND RESPONSIVE. NAD NOTED. VSS. GOWNED. SAFETY/COMFORT AND SUICIDE PRECAUTIONS IN PLACE.
[2017-10-13 00:42] LABS: BASOPHILS # (AUTO) 0.1 /CMM (0.0-0.2); BASOPHILS % (AUTO) 0.6 % (0.0-2.0); EOSINOPHILS # (AUTO) 1.2 /CMM (0.0-0.7); EOSINOPHILS % (AUTO) 13.1 % (0.0-6.0); HEMATOCRIT 45 % (39-51); HEMOGLOBIN 15.1 g/dL (13.5-17.5); LYMPHOCYTES # (AUTO) 2.2 /CMM (0.8-4.8); LYMPHOCYTES % (AUTO) 23.8 % (20.0-44.0); MEAN CORPUSCULAR HEMOGLOBIN 29 PG (26.0-33.0); MEAN CORPUSCULAR HGB CONC 34 g/dl (31.0-36.0); MEAN CORPUSCULAR VOLUME 86 fL (80-96); MONOCYTES # (AUTO) 0.7 /CMM (0.1-1.30); MONOCYTES % (AUTO) 7.1 % (2.0-12.0); NEUTROPHILS # (AUTO) 5.2 /CMM (1.8-8.9); NEUTROPHILS % (AUTO) 55.4 % (43.0-81.0); PLATELET COUNT (AUTO) 259 /CMM (150-450); RDW COEFFICIENT OF VARIATION 13.8 (11.5-15.0); RED BLOOD CELL COUNT(AUTO) 5.27 MIL/uL (4.5-6.0); WHITE BLOOD COUNT (AUTO) 9.4 K/uL (4.3-11.0)
[2017-10-13 00:50] LABS: CALCIUM, SERUM 9.3 mg/dL (8.5-10.1); CARBON DIOXIDE 27 mmol/L (21-32); CHLORIDE 106 mmol/L (98-107); CREATININE 0.9 mg/dL (0.6-1.3); GLUCOSE 121 mg/dL (74-106); POTASSIUM 3.8 mmol/L (3.5-5.1); SODIUM SERUM 141 mmol/L (136-145); UREA NITROGEN, BLOOD 6 mg/dL (7-18)
[2017-10-13 00:55] LABS: ALANINE AMINOTRANSFERASE 32 U/L (12-78); ALBUMIN 3.7 g/dL (3.4-5.0); ALCOHOL, BLOOD < 3 mg/dL (0-0); ALKALINE PHOSPHATASE 72 U/L (46-116); ASPARTATE AMINOTRANSFERASE 33 U/L (15-37); BILIRUBIN,DIRECT 0.1 mg/dL (0.0-0.2); BILIRUBIN,TOTAL 0.3 mg/dL (0.2-1.0); TOTAL PROTEIN, SERUM 7.1 g/dL (6.4-8.2)
[2017-10-13 00:58] LABS: ACETAMINOPHEN 0 ug/ml (10-30); SALICYLATE 2.1 mg/dL (2.8-20.0)
--- NOTE | 2017-10-13 01:37 | NUR ---
JACKELYN HERRERAW CALLED. SANJAY.
--- NOTE | 2017-10-13 04:21 | NUR ---
Patients denies SI/HI at this time. Patient discharged to home in stable condition. Written and verbal after care instructions given. Patient verbalizes understanding of instruction. Patient is ambulatory with steady gait, no further complaints.
[2017-10-13 04:22] VITALS: BP 137/69
== END 2017-10-13 04:23 | disposition home or self-care (01) ==
LOC: ER 00:03
DX: F32.9 Major depressive disorder, single episode, unspecified (principal); R45.851 Suicidal ideations; F20.9 Schizophrenia, unspecified
CPT/HCPCS: 36415; 80048; 80076; 80305; 80329; 85025; 99284; A4606; G0480 ×2; Z7610

== ENCOUNTER 2018-01-23 23:58 | Emergency (ER) | payer MEDICARE, OTHER ==
[~2018-01-23] VITALS: Ht 175.3 cm; Wt 81.6 kg
--- NOTE | 2018-01-24 00:05 | NUR ---
PT BIBRA FROM [facility] TO ER BED 14. PER REPORT PT WAS C/O POSSIBLE SEIZURE. PER REPORT, NO ACTUAL SEIZURE. PT IS C/O SUICIDAL IDEATION W/ PLAN ON RUNNING THROUGH TRAFFIC. PT STATES WANT TO GO TO [facility]. DENIES PAIN. STABLE VITALS AWAITING MD DONALDSON.
--- NOTE | 2018-01-24 00:07 | NUR ---
DR LEYVA AT BEDSIDE FOR EVAL.
--- NOTE | 2018-01-24 00:10 | NUR ---
SKID ROAD MAN AT BEDSIDE FOR BLOOD DRAW.
--- NOTE | 2018-01-24 00:22 | NUR ---
SPOKE TO PRAFUL [place] INCENDIARIES SUPERVISOR, VERIFIED BED NOT AVAILABLE FOR PT.
[2018-01-24 00:32] LABS: BASOPHILS % (AUTO) 0.3 % (0.0-2.0); EOSINOPHILS # (AUTO) 0.7 /CMM (0.0-0.7); EOSINOPHILS % (AUTO) 8.5 % (0.0-6.0); HEMATOCRIT 43 % (39-51); LYMPHOCYTES # (AUTO) 1.9 /CMM (0.8-4.8); LYMPHOCYTES % (AUTO) 22.7 % (20.0-44.0); MEAN CORPUSCULAR HEMOGLOBIN 30 PG (26.0-33.0); MEAN CORPUSCULAR HGB CONC 35 g/dl (31.0-36.0); MEAN CORPUSCULAR VOLUME 86 fL (80-96); MONOCYTES # (AUTO) 0.9 /CMM (0.1-1.30); MONOCYTES % (AUTO) 10.5 % (2.0-12.0); NEUTROPHILS # (AUTO) 4.9 /CMM (1.8-8.9); PLATELET COUNT (AUTO) 247 /CMM (150-450); RDW COEFFICIENT OF VARIATION 14.5 (11.5-15.0); RED BLOOD CELL COUNT(AUTO) 5.08 MIL/uL (4.5-6.0); WHITE BLOOD COUNT (AUTO) 8.5 K/uL (4.3-11.0)
[2018-01-24 00:37] LABS: APPEARANCE,URINE CLEAR (CLEAR); BILIRUBIN,URINE NEGATIVE (NEGATIVE); BLOOD, URINE NEGATIVE Ery/uL (NEGATIVE); COLOR,URINE YELLOW (YELLOW); KETONES,URINE NEGATIVE (NEGATIVE); LEUKOCYTE ESTERASE ,URINE NEGATIVE (NEGATIVE); NITRITE, URINE NEGATIVE (NEGATIVE); PH,URINE 6.5 (5.0-8.0); PROTEIN,URINE NEGATIVE (NEGATIVE); UGLUCOSE NEGATIVE (NEGATIVE); UROBILINOGEN,URINE 0.2 EU/dL (0.2)
[2018-01-24 00:43] LABS: CALCIUM, SERUM 9.2 mg/dL (8.5-10.1); CARBON DIOXIDE 27 mmol/L (21-32); CHLORIDE 101 mmol/L (98-107); GLUCOSE 105 mg/dL (74-106); SODIUM SERUM 137 mmol/L (136-145); UREA NITROGEN, BLOOD 11 mg/dL (7-18)
[2018-01-24 00:48] LABS: ALANINE AMINOTRANSFERASE 313 U/L (12-78); ALBUMIN 3.9 g/dL (3.4-5.0); ALCOHOL, BLOOD < 3 mg/dL (0-0); ALKALINE PHOSPHATASE 84 U/L (46-116); ASPARTATE AMINOTRANSFERASE 117 U/L (15-37); BILIRUBIN,DIRECT 0.1 mg/dL (0.0-0.2); BILIRUBIN,TOTAL 0.4 mg/dL (0.2-1.0); TOTAL PROTEIN, SERUM 7.8 g/dL (6.4-8.2)
[2018-01-24 00:49] LABS: ACETAMINOPHEN 0 ug/ml (10-30); SALICYLATE 2.6 mg/dL (2.8-20.0)
--- NOTE | 2018-01-24 02:16 | NUR ---
ART ART CONSERVATOR AT BEDSIDE FOR PSYCH EVAL.
--- NOTE | 2018-01-24 02:32 | NUR ---
RECEIVED REPORT FROM SISSY GARZON FOR VERÓNICA. PT APPEARS COMFORTABLE.
--- NOTE | 2018-01-24 02:41 | NUR ---
PER ART PT CLEARED FOR DC
[2018-01-24 03:08] VITALS: BP 129/69
== END 2018-01-24 03:10 | disposition home or self-care (01) ==
LOC: ER 01-24
DX: F12.10 Cannabis abuse, uncomplicated (principal); F19.10 Other psychoactive substance abuse, uncomplicated; R45.851 Suicidal ideations; R56.9 Unspecified convulsions; F20.9 Schizophrenia, unspecified; Z98.890 Other specified postprocedural states; Z60.2 Problems related to living alone
CPT/HCPCS: 36415; 80048-TC; 80076-TC; 80305; 81000-TC; 85025-TC; A4606; G0480; Z7610

== ENCOUNTER 2018-02-18 22:27 | Emergency (ER) | payer MEDICARE, OTHER ==
[~2018-02-18] VITALS: Ht 175.3 cm; Wt 81.6 kg
[~2018-02-18 22:27] MED LIST changes: -BENZ0.5T3; +BENZ0.5T43
[2018-02-18 22:37] VITALS: BP 122/68
[2018-02-18] MEDS: ALBUTEROL FS 2.5 MG/0.5 ML VIAL.NEB NEB ONE ×2 (23:01→23:08)
[2018-02-18] MEDS ORDERED: ALBUTEROL FS 2.5 MG/3 ML VIAL.NEB ONE (23:02)
== END 2018-02-18 23:16 | disposition left against medical advice (07) ==
LOC: ER 22:30
DX: J45.909 Unspecified asthma, uncomplicated (principal); R56.9 Unspecified convulsions; F20.9 Schizophrenia, unspecified; Z60.2 Problems related to living alone; Z98.890 Other specified postprocedural states
CPT/HCPCS: A4606; Z7502; Z7610

== ENCOUNTER 2018-02-24 20:17 | Emergency (ER) | payer MEDICARE, OTHER ==
--- NOTE | 2018-02-24 21:01 | NUR ---
CALLED FOR TRIAGE; NO ANSWER
--- NOTE | 2018-02-24 21:18 | NUR ---
CALLED FOR TRIAGE AGAIN; NO ANSWER
--- NOTE | 2018-02-24 21:29 | NUR ---
STILL NOT IN WAITING ROOM FOR TRIAGE OR LAB DRWA.
--- NOTE | 2018-02-24 22:07 | NUR ---
CALLED AGAIN; NOT IN LOBBY. INFORMED BY ADMITTING "PT LEFT"
== END 2018-02-24 22:09 | disposition left against medical advice (07) ==
LOC: ER 20:21
DX: Z53.21 Procedure and treatment not carried out due to patient leaving prior to being seen by health care provider (principal)

== ENCOUNTER 2018-02-28 18:15 | Emergency (ER) | payer MEDICARE, OTHER ==
--- NOTE | 2018-02-28 19:25 | NUR ---
PER LAB STAFF "I WENT TO DRAW BLOOD BUT THERE'S NO ONE IN THE ROOM"
--- NOTE | 2018-02-28 19:43 | NUR ---
SECOND ROUND IN ROOM; PT NOT THERE
--- NOTE | 2018-02-28 19:53 | NUR ---
PT NOT IN ROOM AGAIN X3. LABS CNC
--- NOTE | 2018-02-28 19:55 | NUR ---
FADIA/ISATU NOTIFIED PT NHUNG
== END 2018-02-28 19:57 | disposition left against medical advice (07) ==
LOC: ER 18:17
DX: F20.9 Schizophrenia, unspecified (principal); F12.90 Cannabis use, unspecified, uncomplicated; J45.909 Unspecified asthma, uncomplicated; R56.9 Unspecified convulsions; Z60.2 Problems related to living alone; Z98.890 Other specified postprocedural states
CPT/HCPCS: 36415; Z7502

== ENCOUNTER 2018-05-18 12:16 | Emergency (ER) | payer MEDICARE, OTHER ==
[~2018-05-18] VITALS: Ht 177.8 cm; Wt 74.8 kg
--- NOTE | 2018-05-18 12:40 | NUR ---
AAOX3, CAME TO ER C/O SUICIDAL IDEATION WITH NO PLAN AT THIS TIME, REQUESTING PLACEMENT AT FACILITY. SI PRECAUTION IS IN PLACE. RR IS EVEN AND UNLABORED WITH NAD NOTED. SKIN IS WARM AND DRY. AWAITING MD FOR EVAL.
[2018-05-18 12:53] LABS: BASOPHILS # (AUTO) 0.1 /CMM (0.0-0.2); BASOPHILS % (AUTO) 1.8 % (0.0-2.0); EOSINOPHILS % (AUTO) 5.1 % (0.0-6.0); HEMATOCRIT 45 % (39-51); HEMOGLOBIN 15.8 g/dL (13.5-17.5); LYMPHOCYTES # (AUTO) 1.4 /CMM (0.8-4.8); LYMPHOCYTES % (AUTO) 22.2 % (20.0-44.0); MEAN CORPUSCULAR HEMOGLOBIN 30 PG (26.0-33.0); MEAN CORPUSCULAR HGB CONC 35 g/dl (31.0-36.0); MEAN CORPUSCULAR VOLUME 86 fL (80-96); MONOCYTES # (AUTO) 0.6 /CMM (0.1-1.30); MONOCYTES % (AUTO) 9.4 % (2.0-12.0); NEUTROPHILS # (AUTO) 3.9 /CMM (1.8-8.9); NEUTROPHILS % (AUTO) 61.5 % (43.0-81.0); PLATELET COUNT (AUTO) 230 /CMM (150-450); RDW COEFFICIENT OF VARIATION 13.4 (11.5-15.0); RED BLOOD CELL COUNT(AUTO) 5.26 MIL/uL (4.5-6.0); WHITE BLOOD COUNT (AUTO) 6.3 K/uL (4.3-11.0)
[2018-05-18 13:02] LABS: CARBON DIOXIDE 28 mmol/L (21-32); CHLORIDE 102 mmol/L (98-107); CREATININE 0.9 mg/dL (0.6-1.3); GLUCOSE 99 mg/dL (74-106); POTASSIUM 3.8 mmol/L (3.5-5.1); SODIUM SERUM 135 mmol/L (136-145); UREA NITROGEN, BLOOD 9 mg/dL (7-18)
[2018-05-18 13:04] LABS: ALCOHOL, BLOOD < 3 mg/dL (0-0)
--- NOTE | 2018-05-18 14:30 | NUR ---
FOOD TRAY PROVIDED AT
--- NOTE | 2018-05-18 14:45 | NUR ---
SISSY DE LA CRUZ ([facility]) FOR PSYCH EVAL.
[2018-05-18 15:56] VITALS: BP 112/69
--- NOTE | 2018-05-18 16:09 | NUR ---
CALLED SISSY MUSE FOR REPORT, PT IS GOING TO [facility] RM [id number]
--- NOTE | 2018-05-18 16:24 | NUR ---
CALLED LOW AND WAS GIVEN A [id number] COMPUTER NUMERICAL CONTROL MACHINIST TIME
== END 2018-05-18 18:05 ==
LOC: ER 12:19
DX: F32.9 Major depressive disorder, single episode, unspecified (principal); R45.851 Suicidal ideations; R56.9 Unspecified convulsions; J45.909 Unspecified asthma, uncomplicated; F20.9 Schizophrenia, unspecified; Z98.890 Other specified postprocedural states; Z60.2 Problems related to living alone
CPT/HCPCS: 36415; 80048-TC; 80305; 85025-TC; A4606; G0480; Z7610

== ENCOUNTER 2018-05-21 18:47 | Emergency (ER) | payer MEDICARE, OTHER ==
[~2018-05-21] VITALS: Ht 175.3 cm; Wt 81.6 kg
--- NOTE | 2018-05-21 18:50 | NUR ---
FEELING SUICIDAL WITH PLAN TO RUN INTO TRAFFIC, NO HI. A/O X 3, BREATHING EVEN AND UNLABORED. CALM AND COOPERATIVE. NO SOB, NAD, VITALS STABLE. SAFETY AND COMFORT MEASURES IN PLACE. AWAITING MD ORDERS.
--- NOTE | 2018-05-21 19:08 | NUR ---
REPORT GIVEN TO JONATHAN SHEEHAN FOR VERÓNICA.
--- NOTE | 2018-05-21 19:09 | NUR ---
received report from jonny metz for efren. pt resting in bed with no s/s of acute distress noted. vss. si precautions in place. urine sample and blood sample collected
[2018-05-21 19:10] LABS: BASOPHILS % (AUTO) 0.6 % (0.0-2.0); EOSINOPHILS % (AUTO) 8.2 % (0.0-6.0); HEMATOCRIT 46 % (39-51); HEMOGLOBIN 15.1 g/dL (13.5-17.5); LYMPHOCYTES # (AUTO) 2.2 /CMM (0.8-4.8); LYMPHOCYTES % (AUTO) 30.4 % (20.0-44.0); MEAN CORPUSCULAR HEMOGLOBIN 29 PG (26.0-33.0); MEAN CORPUSCULAR HGB CONC 33 g/dl (31.0-36.0); MEAN CORPUSCULAR VOLUME 88 fL (80-96); MONOCYTES # (AUTO) 0.5 /CMM (0.1-1.30); MONOCYTES % (AUTO) 6.4 % (2.0-12.0); NEUTROPHILS # (AUTO) 3.9 /CMM (1.8-8.9); NEUTROPHILS % (AUTO) 54.4 % (43.0-81.0); PLATELET COUNT (AUTO) 260 /CMM (150-450); RDW COEFFICIENT OF VARIATION 14.3 (11.5-15.0); RED BLOOD CELL COUNT(AUTO) 5.17 MIL/uL (4.5-6.0); WHITE BLOOD COUNT (AUTO) 7.2 K/uL (4.3-11.0)
[2018-05-21 19:11] LABS: APPEARANCE,URINE SL CLOUDY (CLEAR); BILIRUBIN,URINE NEGATIVE (NEGATIVE); BLOOD, URINE NEGATIVE Ery/uL (NEGATIVE); COLOR,URINE YELLOW (YELLOW); KETONES,URINE NEGATIVE (NEGATIVE); LEUKOCYTE ESTERASE ,URINE NEGATIVE (NEGATIVE); NITRITE, URINE NEGATIVE (NEGATIVE); PH,URINE 6.5 (5.0-8.0); PROTEIN,URINE NEGATIVE (NEGATIVE); UGLUCOSE NEGATIVE (NEGATIVE); UROBILINOGEN,URINE 0.2 EU/dL (0.2)
[2018-05-21 19:14] VITALS: BP 122/86
--- NOTE | 2018-05-21 19:15 | NUR ---
CALLED [facility] AND WAS GIVEN AN HOUR ETA
[2018-05-21 19:27] LABS: CALCIUM, SERUM 9.3 mg/dL (8.5-10.1); CARBON DIOXIDE 25 mmol/L (21-32); CHLORIDE 105 mmol/L (98-107); CREATININE 0.8 mg/dL (0.6-1.3); GLUCOSE 94 mg/dL (74-106); POTASSIUM 3.6 mmol/L (3.5-5.1); SODIUM SERUM 139 mmol/L (136-145); UREA NITROGEN, BLOOD 11 mg/dL (7-18)
[2018-05-21 19:32] LABS: ALANINE AMINOTRANSFERASE 28 U/L (12-78); ALBUMIN 4.2 g/dL (3.4-5.0); ALKALINE PHOSPHATASE 76 U/L (46-116); ASPARTATE AMINOTRANSFERASE 19 U/L (15-37); BILIRUBIN,TOTAL 0.3 mg/dL (0.2-1.0); TOTAL PROTEIN, SERUM 8.2 g/dL (6.4-8.2)
[2018-05-21 19:37] LABS: SALICYLATE 2.7 mg/dL (2.8-20.0)
[2018-05-21 19:38] LABS: ACETAMINOPHEN 0 ug/ml (10-30); ALCOHOL, BLOOD < 3 mg/dL (0-0)
--- NOTE | 2018-05-21 19:54 | NUR ---
PINKY BEDSIDE FOR PSYCHIATRIC EVALUATION
--- NOTE | 2018-05-21 21:10 | NUR ---
REPORT GIVEN TO MAMIE HR SHARED SERVICES CONSULTANTSISSY BROWN FOR VERÓNICA.
--- NOTE | 2018-05-21 21:22 | NUR ---
PER JONO, PT WILL OKAY TO GO TO [facility] WITH TAXI. FACILITY AWARE AND PER JONO, FACILITY OKAY WITH PT TAKING TAXI TO THEIR FACILITY. MADE AWARE.
--- NOTE | 2018-05-21 21:50 | NUR ---
Patient Tranfers to outside Facility Physician:HEMANTH Location:[facility]
== END 2018-05-21 21:58 ==
LOC: ER 18:49
DX: R45.851 Suicidal ideations (principal); J45.909 Unspecified asthma, uncomplicated; R56.9 Unspecified convulsions; F20.9 Schizophrenia, unspecified; F31.9 Bipolar disorder, unspecified; F17.200 Nicotine dependence, unspecified, uncomplicated; Z98.890 Other specified postprocedural states; Z60.2 Problems related to living alone
CPT/HCPCS: 36415; 80048-TC; 80076-TC; 80305; 81000-TC; 85025-TC; A4606; G0480; Z7610

== ENCOUNTER 2018-05-26 12:00 | Emergency (ER) | payer MEDICARE, OTHER ==
[~2018-05-26] VITALS: Ht 175.3 cm; Wt 81.6 kg
--- NOTE | 2018-05-26 12:16 | NUR ---
PT TO ED FOR PSYCHE EVALUATION WITH SI- PLAN TO RUN INTO TRAFFIC. PATIENT IS AWAKE AND ALERT. NOT IN DISTRESS. SKIN IS WARM TO TOUCH AND NON DIAPHORETIC. AFEBRILE. VSS
[2018-05-26 12:46] LABS: BASOPHILS # (AUTO) 0.2 /CMM (0.0-0.2); BASOPHILS % (AUTO) 3.2 % (0.0-2.0); EOSINOPHILS % (AUTO) 6.2 % (0.0-6.0); HEMATOCRIT 44 % (39-51); HEMOGLOBIN 15.4 g/dL (13.5-17.5); LYMPHOCYTES # (AUTO) 1.6 /CMM (0.8-4.8); LYMPHOCYTES % (AUTO) 24.8 % (20.0-44.0); MEAN CORPUSCULAR HEMOGLOBIN 30 PG (26.0-33.0); MEAN CORPUSCULAR HGB CONC 35 g/dl (31.0-36.0); MEAN CORPUSCULAR VOLUME 86 fL (80-96); MONOCYTES # (AUTO) 0.4 /CMM (0.1-1.30); MONOCYTES % (AUTO) 6.2 % (2.0-12.0); NEUTROPHILS % (AUTO) 59.6 % (43.0-81.0); PLATELET COUNT (AUTO) 182 /CMM (150-450); RDW COEFFICIENT OF VARIATION 13.4 (11.5-15.0); RED BLOOD CELL COUNT(AUTO) 5.17 MIL/uL (4.5-6.0); WHITE BLOOD COUNT (AUTO) 6.6 K/uL (4.3-11.0)
[2018-05-26 12:56] LABS: CALCIUM, SERUM 8.9 mg/dL (8.5-10.1); CARBON DIOXIDE 27 mmol/L (21-32); CHLORIDE 104 mmol/L (98-107); CREATININE 0.8 mg/dL (0.6-1.3); GLUCOSE 128 mg/dL (74-106); POTASSIUM 3.5 mmol/L (3.5-5.1); SODIUM SERUM 138 mmol/L (136-145); UREA NITROGEN, BLOOD 10 mg/dL (7-18)
--- NOTE | 2018-05-26 12:56 | NUR ---
PT TO ED FOR PSYCHE EVALUATION WITH SI- PLAN TO RUN INTO TRAFFIC. PATIENT IS AWAKE AND ALERT. SKIN IS WARM TO TOUCH AND NON DIAPHORETIC. AFEBRILE. VSS. PT EVAL'D BY ISATU TUCKER. PT STABLE, CALM & COOPERATIVE, NAD NOTED @ THIS TIME.
[2018-05-26] MEDS ORDERED: OLANZAPINE 5 MG TABLET ONE (12:59)
[2018-05-26] MEDS ORDERED: OLANZAPINE 5 MG TABLET PO ONE (13:00)
[2018-05-26 13:01] LABS: ACETAMINOPHEN 0 ug/ml (10-30); ALANINE AMINOTRANSFERASE 29 U/L (12-78); ALBUMIN 3.8 g/dL (3.4-5.0); ALCOHOL, BLOOD < 3 mg/dL (0-0); ALKALINE PHOSPHATASE 76 U/L (46-116); ASPARTATE AMINOTRANSFERASE 17 U/L (15-37); BILIRUBIN,DIRECT 0.1 mg/dL (0.0-0.2); BILIRUBIN,TOTAL 0.3 mg/dL (0.2-1.0); SALICYLATE 2.7 mg/dL (2.8-20.0); TOTAL PROTEIN, SERUM 7.2 g/dL (6.4-8.2)
[2018-05-26] MEDS ORDERED: risperiDONE 1 MG TABLET ONE (13:10)
--- NOTE | 2018-05-26 13:16 | NUR ---
PT REFUSED XYPREXA & RESPIRADOL, MARSII, BANDAGE WRAPPING MACHINE OPERATOR AWARE.
[2018-05-26] MEDS ORDERED: risperiDONE 0.25 MG TABLET PO ONE (13:30)
[2018-05-26 14:20] LABS: APPEARANCE,URINE Clear (CLEAR); BILIRUBIN,URINE Negative (NEGATIVE); BLOOD, URINE Negative Ery/uL (NEGATIVE); COLOR,URINE Yellow (YELLOW); KETONES,URINE Negative (NEGATIVE); LEUKOCYTE ESTERASE ,URINE Negative (NEGATIVE); NITRITE, URINE Negative (NEGATIVE); PROTEIN,URINE Negative (NEGATIVE); UGLUCOSE Negative (NEGATIVE); UROBILINOGEN,URINE 0.2 EU/dL (0.2)
--- NOTE | 2018-05-26 14:58 | NUR ---
CALLED ART DIRECTOR OF SOFTWARE DEVELOPMENT
--- NOTE | 2018-05-26 16:25 | NUR ---
ESPERANZA FROM [facility] CALLED BACK PATIENT WAS ACCEPTED BY DR LINARES. NUMBER TO GIVE REPORT IS CALLED [facility] FOR TRANSPORT ETA OF 8340 WAS GIVEN. TRIP#[id number]
--- NOTE | 2018-05-26 16:58 | NUR ---
PT EN ROUTE TO [facility] VIA BLS AMBULANCE. PT STABLE, NAD NOTED UPON LEAVING ED. REPORT GIVEN TO TATIANA YORK.
[2018-05-26 17:00] VITALS: BP 129/67
== END 2018-05-26 17:01 ==
LOC: ER 12:01
DX: R45.851 Suicidal ideations (principal); J45.909 Unspecified asthma, uncomplicated; F31.9 Bipolar disorder, unspecified; F20.9 Schizophrenia, unspecified; Z60.2 Problems related to living alone
CPT/HCPCS: 36415; 80048-TC; 80076-TC; 80305; 81000-TC; 85025-TC; A4606; G0480; Z7610

== ENCOUNTER 2018-05-30 15:57 | Emergency (ER) | payer MEDICARE, OTHER ==
[~2018-05-30] VITALS: Ht 175.3 cm; Wt 81.6 kg
[2018-05-30 15:57] VITALS: BP 120/73
== END 2018-05-30 17:04 | disposition home or self-care (01) ==
LOC: ER 15:58
DX: Z76.0 Encounter for issue of repeat prescription (principal); F20.9 Schizophrenia, unspecified; J45.909 Unspecified asthma, uncomplicated; F31.9 Bipolar disorder, unspecified; Z98.890 Other specified postprocedural states; Z60.2 Problems related to living alone
CPT/HCPCS: 99283; A4606; Z7502; Z7610

== ENCOUNTER 2018-06-02 18:03 | Emergency (ER) | payer MEDICARE, OTHER ==
[~2018-06-02] VITALS: Ht 175.3 cm; Wt 81.6 kg
--- NOTE | 2018-06-02 18:28 | NUR ---
PT SELF PRESENTS TO ED. AMBULATORY REQUESTING MEDICAL CLEARANCE FOR VOLUNTARY PSYCH ADMISSION. ALSO REQUESTING MED REFILL FOR RISPERDAL. DENIES SI/HI. VSS. AWAITING MD DONALDSON.
--- NOTE | 2018-06-02 18:35 | NUR ---
CLINTON ABRAMS AT BEDSIDE FOR EVAL.
--- NOTE | 2018-06-02 18:40 | NUR ---
RECYCLE COORDINATOR AT BEDSIDE FOR BLOOD DRAW.
[2018-06-02 18:51] LABS: BASOPHILS # (AUTO) 0.2 /CMM (0.0-0.2); BASOPHILS % (AUTO) 2.2 % (0.0-2.0); EOSINOPHILS % (AUTO) 2.3 % (0.0-6.0); HEMATOCRIT 48 % (39-51); HEMOGLOBIN 16.1 g/dL (13.5-17.5); LYMPHOCYTES # (AUTO) 2.1 /CMM (0.8-4.8); LYMPHOCYTES % (AUTO) 25.9 % (20.0-44.0); MEAN CORPUSCULAR HEMOGLOBIN 29 PG (26.0-33.0); MEAN CORPUSCULAR HGB CONC 34 g/dl (31.0-36.0); MEAN CORPUSCULAR VOLUME 86 fL (80-96); MONOCYTES # (AUTO) 0.7 /CMM (0.1-1.30); MONOCYTES % (AUTO) 8.5 % (2.0-12.0); NEUTROPHILS # (AUTO) 4.7 /CMM (1.8-8.9); NEUTROPHILS % (AUTO) 61.1 % (43.0-81.0); PLATELET COUNT (AUTO) 269 /CMM (150-450); RDW COEFFICIENT OF VARIATION 13.3 (11.5-15.0); WHITE BLOOD COUNT (AUTO) 7.9 K/uL (4.3-11.0)
[2018-06-02 18:57] LABS: CALCIUM, SERUM 9.5 mg/dL (8.5-10.1); CARBON DIOXIDE 27 mmol/L (21-32); CHLORIDE 105 mmol/L (98-107); CREATININE 1.2 mg/dL (0.6-1.3); GLUCOSE 100 mg/dL (74-106); POTASSIUM 4.7 mmol/L (3.5-5.1); SODIUM SERUM 139 mmol/L (136-145); UREA NITROGEN, BLOOD 11 mg/dL (7-18)
[2018-06-02 19:03] LABS: ACETAMINOPHEN 0 ug/ml (10-30); ALANINE AMINOTRANSFERASE 27 U/L (12-78); ALBUMIN 4.1 g/dL (3.4-5.0); ALCOHOL, BLOOD < 3 mg/dL (0-0); ALKALINE PHOSPHATASE 84 U/L (46-116); ASPARTATE AMINOTRANSFERASE 19 U/L (15-37); BILIRUBIN,DIRECT 0.2 mg/dL (0.0-0.2); BILIRUBIN,TOTAL 0.6 mg/dL (0.2-1.0); SALICYLATE 2.6 mg/dL (2.8-20.0)
[2018-06-02 19:10] LABS: APPEARANCE,URINE Clear (CLEAR); BILIRUBIN,URINE SMALL (NEGATIVE); BLOOD, URINE Negative Ery/uL (NEGATIVE); COLOR,URINE Dark (YELLOW); KETONES,URINE 15 (NEGATIVE); LEUKOCYTE ESTERASE ,URINE Negative (NEGATIVE); NITRITE, URINE Negative (NEGATIVE); PROTEIN,URINE Trace mg/dl (NEGATIVE); UGLUCOSE Negative (NEGATIVE)
--- NOTE | 2018-06-02 19:18 | NUR ---
REPORT TO SILVESTRE SHEEHAN FOR VERÓNICA.
[2018-06-02 19:23] LABS: BACTERIA,URINE Few /HPF (None Seen); SQUAMOUS EPITHELIAL CELL,UR Few /HPF (None Seen); URINE AMORPHOUS URATE Few /HPF (None Seen); WBC,URINE 0-2 /HPF (0-3)
[2018-06-02 19:24] LABS: MUCUS,URINE Moderate /LPF (None Seen)
--- NOTE | 2018-06-02 19:53 | NUR ---
CALLED LOW FOR TRANSPORT ETA OF 2019 WAS GIVEN. TRIP#[id number]
--- NOTE | 2018-06-02 20:13 | NUR ---
REPORT GIVEN TO [facility].
[2018-06-02 20:20] VITALS: BP 130/78
--- NOTE | 2018-06-02 20:20 | NUR ---
PT TRANSP. [facility]IA [facility]. PT STABLE CONDTION. VSS.
== END 2018-06-02 20:19 | disposition home or self-care (01) ==
LOC: ER 18:04
DX: Z04.6 Encounter for general psychiatric examination, requested by authority (principal); R56.9 Unspecified convulsions; J45.909 Unspecified asthma, uncomplicated; F20.9 Schizophrenia, unspecified; F31.9 Bipolar disorder, unspecified; Z98.890 Other specified postprocedural states; Z60.2 Problems related to living alone
CPT/HCPCS: 36415; 80048; 80076; 80305; 80329; 81001; 85025; 99285; A4606; G0480 ×2; 81000-TC; Z7610

== ENCOUNTER 2018-06-08 00:40 | Emergency (ER) | payer MEDICARE, OTHER ==
[~2018-06-08] VITALS: Ht 172.7 cm; Wt 68.0 kg
[2018-06-08 00:56] VITALS: BP 135/78
== END 2018-06-08 01:00 | disposition home or self-care (01) ==
LOC: ER 00:41
DX: F28 Other psychotic disorder not due to a substance or known physiological condition (principal); J45.909 Unspecified asthma, uncomplicated; F20.9 Schizophrenia, unspecified; F31.9 Bipolar disorder, unspecified; Z98.890 Other specified postprocedural states; Z60.2 Problems related to living alone
CPT/HCPCS: 99283; A4606; Z7610

== ENCOUNTER 2018-06-29 23:06 | Emergency (ER) | payer MEDICARE, OTHER ==
[~2018-06-29] VITALS: Ht 177.8 cm; Wt 83.9 kg
[2018-06-29 23:06] VITALS: BP 129/72
--- NOTE | 2018-06-29 23:19 | NUR ---
URINE SAMPLE COLLECTED
[2018-06-30 00:23] LABS: BASOPHILS # (AUTO) 0.1 /CMM (0.0-0.2); BASOPHILS % (AUTO) 1.4 % (0.0-2.0); EOSINOPHILS % (AUTO) 7.7 % (0.0-6.0); HEMATOCRIT 45 % (39-51); HEMOGLOBIN 14.5 g/dL (13.5-17.5); LYMPHOCYTES # (AUTO) 1.7 /CMM (0.8-4.8); LYMPHOCYTES % (AUTO) 23.9 % (20.0-44.0); MEAN CORPUSCULAR HEMOGLOBIN 29 PG (26.0-33.0); MEAN CORPUSCULAR HGB CONC 33 g/dl (31.0-36.0); MEAN CORPUSCULAR VOLUME 88 fL (80-96); MONOCYTES # (AUTO) 0.5 /CMM (0.1-1.30); MONOCYTES % (AUTO) 7.1 % (2.0-12.0); NEUTROPHILS # (AUTO) 4.4 /CMM (1.8-8.9); NEUTROPHILS % (AUTO) 59.9 % (43.0-81.0); PLATELET COUNT (AUTO) 222 /CMM (150-450); RDW COEFFICIENT OF VARIATION 14.2 (11.5-15.0); RED BLOOD CELL COUNT(AUTO) 5.09 MIL/uL (4.5-6.0); WHITE BLOOD COUNT (AUTO) 7.3 K/uL (4.3-11.0)
[2018-06-30 00:35] LABS: CALCIUM, SERUM 8.8 mg/dL (8.5-10.1); CARBON DIOXIDE 28 mmol/L (21-32); CHLORIDE 104 mmol/L (98-107); CREATININE 0.8 mg/dL (0.6-1.3); GLUCOSE 96 mg/dL (74-106); SODIUM SERUM 139 mmol/L (136-145); UREA NITROGEN, BLOOD 10 mg/dL (7-18)
[2018-06-30 00:36] LABS: ALCOHOL, BLOOD < 3 mg/dL (0-0)
== END 2018-06-30 01:06 | disposition home or self-care (01) ==
LOC: ER 23:07
DX: R56.9 Unspecified convulsions (principal); J45.909 Unspecified asthma, uncomplicated; F31.9 Bipolar disorder, unspecified; F20.9 Schizophrenia, unspecified; Z60.2 Problems related to living alone; Z98.890 Other specified postprocedural states
CPT/HCPCS: 36415; 80048; 80305; 85025; 93005; 99285; A4606; G0480; Z7610

== ENCOUNTER 2018-06-30 09:22 | Emergency (ER) | payer MEDICARE, OTHER ==
[~2018-06-30] VITALS: Ht 177.8 cm; Wt 68.0 kg
[2018-06-30 09:49] LABS: APPEARANCE,URINE Clear (CLEAR); BILIRUBIN,URINE Negative (NEGATIVE); BLOOD, URINE Negative Ery/uL (NEGATIVE); COLOR,URINE Light yellow (YELLOW); KETONES,URINE Negative (NEGATIVE); LEUKOCYTE ESTERASE ,URINE Negative (NEGATIVE); NITRITE, URINE Negative (NEGATIVE); PH,URINE 6.5 (5.0-8.0); PROTEIN,URINE Negative (NEGATIVE); UGLUCOSE Negative (NEGATIVE); UROBILINOGEN,URINE 0.2 EU/dL (0.2)
[2018-06-30 09:55] LABS: BASOPHILS % (AUTO) 0.2 % (0.0-2.0); CALCIUM, SERUM 8.8 mg/dL (8.5-10.1); CARBON DIOXIDE 26 mmol/L (21-32); CHLORIDE 104 mmol/L (98-107); CREATININE 0.8 mg/dL (0.6-1.3); GLUCOSE 125 mg/dL (74-106); HEMATOCRIT 52 % (39-51); HEMOGLOBIN 16.9 g/dL (13.5-17.5); LYMPHOCYTES % (AUTO) 13.2 % (20.0-44.0); MEAN CORPUSCULAR HEMOGLOBIN 29 PG (26.0-33.0); MEAN CORPUSCULAR HGB CONC 33 g/dl (31.0-36.0); MEAN CORPUSCULAR VOLUME 89 fL (80-96); MONOCYTES # (AUTO) 0.5 /CMM (0.1-1.30); MONOCYTES % (AUTO) 6.4 % (2.0-12.0); NEUTROPHILS # (AUTO) 5.9 /CMM (1.8-8.9); NEUTROPHILS % (AUTO) 77.2 % (43.0-81.0); PLATELET COUNT (AUTO) 223 /CMM (150-450); POTASSIUM 3.7 mmol/L (3.5-5.1); RDW COEFFICIENT OF VARIATION 14.1 (11.5-15.0); RED BLOOD CELL COUNT(AUTO) 5.87 MIL/uL (4.5-6.0); SODIUM SERUM 139 mmol/L (136-145); UREA NITROGEN, BLOOD 8 mg/dL (7-18); WHITE BLOOD COUNT (AUTO) 7.6 K/uL (4.3-11.0)
[2018-06-30 10:00] LABS: ALANINE AMINOTRANSFERASE 27 U/L (12-78); ALBUMIN 3.9 g/dL (3.4-5.0); ALKALINE PHOSPHATASE 78 U/L (46-116); ASPARTATE AMINOTRANSFERASE 19 U/L (15-37); BILIRUBIN,DIRECT 0.1 mg/dL (0.0-0.2); BILIRUBIN,TOTAL 0.3 mg/dL (0.2-1.0); TOTAL PROTEIN, SERUM 7.3 g/dL (6.4-8.2)
[2018-06-30 10:01] LABS: ACETAMINOPHEN < 2 ug/ml (10-30); SALICYLATE 2.1 mg/dL (2.8-20.0)
[2018-06-30 10:07] VITALS: BP 124/74
--- NOTE | 2018-06-30 11:36 | NUR ---
REPORT GIVEN TO MARY FOR TRANSPORT TO [facility]
== END 2018-06-30 10:07 | disposition home or self-care (01) ==
LOC: ER 09:24
DX: R45.851 Suicidal ideations (principal); F32.9 Major depressive disorder, single episode, unspecified; Z60.2 Problems related to living alone
CPT/HCPCS: 36415; 80048-TC; 80076-TC; 80305; 81000-TC; 85025-TC; A4606; G0480; Z7610

== ENCOUNTER 2018-07-05 17:25 | Emergency (ER) | payer MEDICARE, OTHER ==
[~2018-07-05] VITALS: Ht 175.3 cm; Wt 72.6 kg
[2018-07-05 18:00] LABS: BASOPHILS # (AUTO) 0.1 /CMM (0.0-0.2); BASOPHILS % (AUTO) 1.6 % (0.0-2.0); EOSINOPHILS % (AUTO) 6.4 % (0.0-6.0); HEMATOCRIT 44 % (39-51); HEMOGLOBIN 14.5 g/dL (13.5-17.5); LYMPHOCYTES # (AUTO) 2.1 /CMM (0.8-4.8); LYMPHOCYTES % (AUTO) 30.9 % (20.0-44.0); MEAN CORPUSCULAR HEMOGLOBIN 28 PG (26.0-33.0); MEAN CORPUSCULAR HGB CONC 33 g/dl (31.0-36.0); MEAN CORPUSCULAR VOLUME 85 fL (80-96); MONOCYTES # (AUTO) 0.6 /CMM (0.1-1.30); MONOCYTES % (AUTO) 8.2 % (2.0-12.0); NEUTROPHILS # (AUTO) 3.7 /CMM (1.8-8.9); NEUTROPHILS % (AUTO) 52.9 % (43.0-81.0); PLATELET COUNT (AUTO) 265 /CMM (150-450); RDW COEFFICIENT OF VARIATION 13.1 (11.5-15.0); RED BLOOD CELL COUNT(AUTO) 5.17 MIL/uL (4.5-6.0); WHITE BLOOD COUNT (AUTO) 6.9 K/uL (4.3-11.0)
[2018-07-05] MEDS ORDERED: OLANZAPINE 5 MG TABLET PO ONE (18:00)
[2018-07-05] MEDS ORDERED: LORAZEPAM 0.5 MG TABLET PO ONE (18:00)
[2018-07-05] MEDS ORDERED: OLANZAPINE 5 MG TABLET ONE (18:08)
[2018-07-05] MEDS ORDERED: LORAZEPAM 1 MG TABLET ONE (18:08)
[2018-07-05 18:12] LABS: CALCIUM, SERUM 8.6 mg/dL (8.5-10.1); CARBON DIOXIDE 27 mmol/L (21-32); CHLORIDE 103 mmol/L (98-107); CREATININE 0.9 mg/dL (0.6-1.3); GLUCOSE 108 mg/dL (74-106); POTASSIUM 3.3 mmol/L (3.5-5.1); SODIUM SERUM 139 mmol/L (136-145); UREA NITROGEN, BLOOD 9 mg/dL (7-18)
[2018-07-05 18:17] LABS: ALANINE AMINOTRANSFERASE 29 U/L (12-78); ALBUMIN 3.9 g/dL (3.4-5.0); ALCOHOL, BLOOD 10 mg/dL (0-0); ALKALINE PHOSPHATASE 74 U/L (46-116); ASPARTATE AMINOTRANSFERASE 19 U/L (15-37); BILIRUBIN,DIRECT 0.1 mg/dL (0.0-0.2); BILIRUBIN,TOTAL 0.3 mg/dL (0.2-1.0); SALICYLATE 2.3 mg/dL (2.8-20.0); TOTAL PROTEIN, SERUM 7.4 g/dL (6.4-8.2)
[2018-07-05 18:18] LABS: ACETAMINOPHEN < 10 ug/ml (10-30)
[2018-07-05 18:39] LABS: APPEARANCE,URINE Clear (CLEAR); BILIRUBIN,URINE Negative (NEGATIVE); BLOOD, URINE Negative Ery/uL (NEGATIVE); COLOR,URINE Yellow (YELLOW); KETONES,URINE Trace (NEGATIVE); LEUKOCYTE ESTERASE ,URINE Negative (NEGATIVE); NITRITE, URINE Negative (NEGATIVE); PROTEIN,URINE Negative (NEGATIVE); UGLUCOSE Negative (NEGATIVE); UROBILINOGEN,URINE 0.2 EU/dL (0.2)
--- NOTE | 2018-07-05 18:44 | NUR ---
CALLED HAND KISS SETTER KELECHI AND WAS GIVEN AN HOUR ETA
--- NOTE | 2018-07-05 19:10 | NUR ---
REPORT RECEIVED FROM SISSY GUZMAN FOR VERÓNICA.
--- NOTE | 2018-07-05 20:12 | NUR ---
PT CLEARED BY KELECHI RN MEDICAL AND SCIENTIFIC ILLUSTRATOR
--- NOTE | 2018-07-05 20:19 | NUR ---
Patient discharged to home in stable condition. Written and verbal after care instructions given. Patient verbalizes understanding of instruction. Patient is awake and alert to self, day, and place. Patient ambulatory with a steady gait.
[2018-07-05 20:20] VITALS: BP 131/81
== END 2018-07-05 20:20 | disposition home or self-care (01) ==
LOC: ER 17:28
DX: Z04.6 Encounter for general psychiatric examination, requested by authority (principal); F32.9 Major depressive disorder, single episode, unspecified; F20.9 Schizophrenia, unspecified; Z60.2 Problems related to living alone
CPT/HCPCS: 36415; 80048; 80076; 80305; 80329; 81001; 85025; 99284; A4606; G0480 ×2; 81000-TC; Z7610

== ENCOUNTER 2018-07-12 11:24 | Emergency (ER) | payer MEDICARE, OTHER ==
[~2018-07-12] VITALS: Ht 175.3 cm; Wt 81.6 kg
--- NOTE | 2018-07-12 12:00 | NUR ---
C/O SI- PLANS TO RUN IN TO TRAFFIC (FOR MEDICAL CLEARANCE). PT CALM & COOPERATIVE, NAD NOTED @ THIS TIME.
[2018-07-12 12:08] LABS: BASOPHILS # (AUTO) 0.4 /CMM (0.0-0.2); BASOPHILS % (AUTO) 3.7 % (0.0-2.0); EOSINOPHILS % (AUTO) 4.6 % (0.0-6.0); HEMATOCRIT 45 % (39-51); LYMPHOCYTES # (AUTO) 1.6 /CMM (0.8-4.8); LYMPHOCYTES % (AUTO) 16.6 % (20.0-44.0); MEAN CORPUSCULAR HGB CONC 33 g/dl (31.0-36.0); MEAN CORPUSCULAR VOLUME 86 fL (80-96); MONOCYTES # (AUTO) 0.8 /CMM (0.1-1.30); MONOCYTES % (AUTO) 8.1 % (2.0-12.0); NEUTROPHILS # (AUTO) 6.3 /CMM (1.8-8.9); PLATELET COUNT (AUTO) 299 /CMM (150-450); RED BLOOD CELL COUNT(AUTO) 5.27 MIL/uL (4.5-6.0); WHITE BLOOD COUNT (AUTO) 9.5 K/uL (4.3-11.0)
[2018-07-12 12:18] LABS: CALCIUM, SERUM 9.1 mg/dL (8.5-10.1); CARBON DIOXIDE 29 mmol/L (21-32); CHLORIDE 103 mmol/L (98-107); CREATININE 0.9 mg/dL (0.6-1.3); GLUCOSE 100 mg/dL (74-106); POTASSIUM 3.6 mmol/L (3.5-5.1); SODIUM SERUM 139 mmol/L (136-145); UREA NITROGEN, BLOOD 9 mg/dL (7-18)
[2018-07-12 12:25] LABS: ALANINE AMINOTRANSFERASE 76 U/L (12-78); ALCOHOL, BLOOD < 3 mg/dL (0-0); ALKALINE PHOSPHATASE 82 U/L (46-116); ASPARTATE AMINOTRANSFERASE 34 U/L (15-37); BILIRUBIN,DIRECT 0.1 mg/dL (0.0-0.2); BILIRUBIN,TOTAL 0.3 mg/dL (0.2-1.0); SALICYLATE 3.1 mg/dL (2.8-20.0)
[2018-07-12 12:26] LABS: ACETAMINOPHEN 0 ug/ml (10-30)
--- NOTE | 2018-07-12 12:28 | NUR ---
LABS DRAWN, URINE COLLECTED & SENT TO LAB.
[2018-07-12 12:51] LABS: APPEARANCE,URINE Slightly Cloudy (CLEAR); BILIRUBIN,URINE Negative (NEGATIVE); BLOOD, URINE Negative Ery/uL (NEGATIVE); COLOR,URINE Yellow (YELLOW); KETONES,URINE Negative (NEGATIVE); LEUKOCYTE ESTERASE ,URINE Negative (NEGATIVE); NITRITE, URINE Negative (NEGATIVE); PROTEIN,URINE Negative (NEGATIVE); UGLUCOSE Negative (NEGATIVE); UROBILINOGEN,URINE 0.2 EU/dL (0.2)
--- NOTE | 2018-07-12 12:51 | NUR ---
PT MEDICALLY CLEARED BY DR. PETERS & EN ROUTE TO [facility] VOLUNTARY VIA TAXI. PT STABLE NAD NOTED & AMB WITH STEADY GAIT UPON LEAVING ED.
[2018-07-12 12:56] VITALS: BP 120/70
[2018-07-12 13:04] LABS: TOTAL PROTEIN, SERUM 7.8 g/dL (6.4-8.2)
== END 2018-07-12 12:58 | disposition home or self-care (01) ==
LOC: ER 11:24
DX: F29 Unspecified psychosis not due to a substance or known physiological condition (principal); F32.9 Major depressive disorder, single episode, unspecified; Z60.2 Problems related to living alone
CPT/HCPCS: 36415; 80048; 80076; 80305; 80329; 81001; 85025; 99284; A4606; G0480 ×2; 81000-TC; Z7610

== ENCOUNTER 2018-07-14 17:35 | Emergency (ER) | payer MEDICARE, OTHER ==
[~2018-07-14] VITALS: Ht 175.3 cm; Wt 64.4 kg
[2018-07-14 17:35] VITALS: BP 108/67
[2018-07-14 18:08] LABS: BASOPHILS # (AUTO) 0.1 /CMM (0.0-0.2); BASOPHILS % (AUTO) 1.5 % (0.0-2.0); EOSINOPHILS % (AUTO) 5.9 % (0.0-6.0); HEMATOCRIT 44 % (39-51); HEMOGLOBIN 14.7 g/dL (13.5-17.5); LYMPHOCYTES # (AUTO) 1.8 /CMM (0.8-4.8); LYMPHOCYTES % (AUTO) 23.1 % (20.0-44.0); MEAN CORPUSCULAR HEMOGLOBIN 29 PG (26.0-33.0); MEAN CORPUSCULAR HGB CONC 33 g/dl (31.0-36.0); MEAN CORPUSCULAR VOLUME 86 fL (80-96); MONOCYTES # (AUTO) 0.5 /CMM (0.1-1.30); MONOCYTES % (AUTO) 6.7 % (2.0-12.0); NEUTROPHILS # (AUTO) 5.1 /CMM (1.8-8.9); NEUTROPHILS % (AUTO) 62.8 % (43.0-81.0); PLATELET COUNT (AUTO) 285 /CMM (150-450); RDW COEFFICIENT OF VARIATION 12.9 (11.5-15.0); RED BLOOD CELL COUNT(AUTO) 5.17 MIL/uL (4.5-6.0); WHITE BLOOD COUNT (AUTO) 7.9 K/uL (4.3-11.0)
[2018-07-14 18:17] LABS: APPEARANCE,URINE Clear (CLEAR); BILIRUBIN,URINE Negative (NEGATIVE); BLOOD, URINE Negative Ery/uL (NEGATIVE); COLOR,URINE Yellow (YELLOW); KETONES,URINE Negative (NEGATIVE); LEUKOCYTE ESTERASE ,URINE Negative (NEGATIVE); NITRITE, URINE Negative (NEGATIVE); PROTEIN,URINE Negative (NEGATIVE); UGLUCOSE Negative (NEGATIVE); UROBILINOGEN,URINE 0.2 EU/dL (0.2)
[2018-07-14 18:18] LABS: CALCIUM, SERUM 8.8 mg/dL (8.5-10.1); CARBON DIOXIDE 27 mmol/L (21-32); CHLORIDE 102 mmol/L (98-107); CREATININE 0.9 mg/dL (0.6-1.3); GLUCOSE 101 mg/dL (74-106); POTASSIUM 3.7 mmol/L (3.5-5.1); SODIUM SERUM 137 mmol/L (136-145); UREA NITROGEN, BLOOD 9 mg/dL (7-18)
[2018-07-14 18:24] LABS: ALANINE AMINOTRANSFERASE 50 U/L (12-78); ALCOHOL, BLOOD < 3 mg/dL (0-0); ALKALINE PHOSPHATASE 87 U/L (46-116); ASPARTATE AMINOTRANSFERASE 21 U/L (15-37); BILIRUBIN,DIRECT 0.1 mg/dL (0.0-0.2); BILIRUBIN,TOTAL 0.3 mg/dL (0.2-1.0); TOTAL PROTEIN, SERUM 7.6 g/dL (6.4-8.2)
[2018-07-14 18:49] LABS: ACETAMINOPHEN < 2 ug/ml (10-30)
--- NOTE | 2018-07-14 21:56 | NUR ---
LOW AT BEDSIDE TO TRANSPORT TO [facility]
== END 2018-07-14 21:57 | disposition home or self-care (01) ==
LOC: ER 17:37
DX: Z04.6 Encounter for general psychiatric examination, requested by authority (principal); F32.9 Major depressive disorder, single episode, unspecified; F41.9 Anxiety disorder, unspecified; Z60.2 Problems related to living alone
CPT/HCPCS: 36415; 80048; 80076; 80305; 80329; 81001; 85025; 99284; A4606; G0480 ×2; 81000-TC; Z7610

== ENCOUNTER 2018-07-30 20:42 | Emergency (ER) | payer MEDICARE, OTHER ==
[~2018-07-30] VITALS: Ht 172.7 cm; Wt 79.4 kg
[2018-07-30 22:25] LABS: BASOPHILS # (AUTO) 0.1 /CMM (0.0-0.2); EOSINOPHILS % (AUTO) 5.2 % (0.0-6.0); HEMATOCRIT 49 % (39-51); HEMOGLOBIN 16.3 g/dL (13.5-17.5); LYMPHOCYTES # (AUTO) 1.4 /CMM (0.8-4.8); LYMPHOCYTES % (AUTO) 19.9 % (20.0-44.0); MEAN CORPUSCULAR HGB CONC 33 g/dl (31.0-36.0); MEAN CORPUSCULAR VOLUME 86 fL (80-96); MONOCYTES # (AUTO) 0.7 /CMM (0.1-1.30); MONOCYTES % (AUTO) 9.9 % (2.0-12.0); NEUTROPHILS # (AUTO) 4.6 /CMM (1.8-8.9); PLATELET COUNT (AUTO) 247 /CMM (150-450); RDW COEFFICIENT OF VARIATION 12.9 (11.5-15.0); RED BLOOD CELL COUNT(AUTO) 5.73 MIL/uL (4.5-6.0); WHITE BLOOD COUNT (AUTO) 7.2 K/uL (4.3-11.0)
[2018-07-30 22:48] LABS: CALCIUM, SERUM 9.6 mg/dL (8.5-10.1); CARBON DIOXIDE 27 mmol/L (21-32); CHLORIDE 102 mmol/L (98-107); CREATININE 1.1 mg/dL (0.6-1.3); GLUCOSE 99 mg/dL (74-106); POTASSIUM 4.6 mmol/L (3.5-5.1); SODIUM SERUM 139 mmol/L (136-145); UREA NITROGEN, BLOOD 9 mg/dL (7-18)
[2018-07-30 22:56] LABS: ALANINE AMINOTRANSFERASE 29 U/L (12-78); ALBUMIN 4.6 g/dL (3.4-5.0); ALKALINE PHOSPHATASE 90 U/L (46-116); ASPARTATE AMINOTRANSFERASE 17 U/L (15-37); BILIRUBIN,DIRECT 0.1 mg/dL (0.0-0.2); BILIRUBIN,TOTAL 0.4 mg/dL (0.2-1.0); TOTAL PROTEIN, SERUM 8.6 g/dL (6.4-8.2)
[2018-07-30 22:58] LABS: ACETAMINOPHEN 0 ug/ml (10-30); SALICYLATE 2.6 mg/dL (2.8-20.0)
[2018-07-30 22:59] LABS: ALCOHOL, BLOOD < 3 mg/dL (0-0)
--- NOTE | 2018-07-30 23:01 | NUR ---
SEEN AND EVALUATED BY DR. CLEARY. DENIES MEDICAL C/O. RESP EVEN AND UNLABORED. CALM AND COOPERATIVE. PLANS OF CARE DISCUSSED.
[2018-07-30 23:16] VITALS: BP 140/72
== END 2018-07-30 23:17 | disposition home or self-care (01) ==
LOC: ER 20:43
DX: F32.9 Major depressive disorder, single episode, unspecified (principal); F20.9 Schizophrenia, unspecified; Z60.2 Problems related to living alone
CPT/HCPCS: 36415; 80048; 80076; 80305; 80329; 85025; 99284; A4606; G0480 ×2; Z7610

== ENCOUNTER 2018-07-31 16:31 | Emergency (ER) | payer MEDICARE, OTHER ==
[~2018-07-31] VITALS: Ht 175.3 cm; Wt 81.6 kg
[2018-07-31 16:31] VITALS: BP 121/74
[2018-07-31 17:34] LABS: BASOPHILS # (AUTO) 0.1 /CMM (0.0-0.2); BASOPHILS % (AUTO) 0.8 % (0.0-2.0); EOSINOPHILS % (AUTO) 4.5 % (0.0-6.0); HEMATOCRIT 47 % (39-51); HEMOGLOBIN 15.8 g/dL (13.5-17.5); LYMPHOCYTES # (AUTO) 1.6 /CMM (0.8-4.8); LYMPHOCYTES % (AUTO) 21.5 % (20.0-44.0); MEAN CORPUSCULAR HGB CONC 34 g/dl (31.0-36.0); MEAN CORPUSCULAR VOLUME 86 fL (80-96); MONOCYTES # (AUTO) 0.7 /CMM (0.1-1.30); MONOCYTES % (AUTO) 10.2 % (2.0-12.0); NEUTROPHILS # (AUTO) 4.6 /CMM (1.8-8.9); PLATELET COUNT (AUTO) 265 /CMM (150-450); RDW COEFFICIENT OF VARIATION 12.9 (11.5-15.0); RED BLOOD CELL COUNT(AUTO) 5.53 MIL/uL (4.5-6.0); WHITE BLOOD COUNT (AUTO) 7.3 K/uL (4.3-11.0)
[2018-07-31 17:47] LABS: CALCIUM, SERUM 9.6 mg/dL (8.5-10.1); CARBON DIOXIDE 29 mmol/L (21-32); CHLORIDE 103 mmol/L (98-107); CREATININE 1.1 mg/dL (0.6-1.3); GLUCOSE 94 mg/dL (74-106); POTASSIUM 3.9 mmol/L (3.5-5.1); SODIUM SERUM 139 mmol/L (136-145); UREA NITROGEN, BLOOD 11 mg/dL (7-18)
[2018-07-31 17:53] LABS: ALANINE AMINOTRANSFERASE 28 U/L (12-78); ALBUMIN 4.4 g/dL (3.4-5.0); ALCOHOL, BLOOD < 3 mg/dL (0-0); ALKALINE PHOSPHATASE 96 U/L (46-116); ASPARTATE AMINOTRANSFERASE 19 U/L (15-37); BILIRUBIN,DIRECT 0.1 mg/dL (0.0-0.2); BILIRUBIN,TOTAL 0.5 mg/dL (0.2-1.0); TOTAL PROTEIN, SERUM 8.3 g/dL (6.4-8.2)
[2018-07-31 17:57] LABS: APPEARANCE,URINE Clear (CLEAR); BILIRUBIN,URINE SMALL (NEGATIVE); BLOOD, URINE Negative Ery/uL (NEGATIVE); COLOR,URINE Yellow (YELLOW); KETONES,URINE 40 (NEGATIVE); LEUKOCYTE ESTERASE ,URINE Negative (NEGATIVE); NITRITE, URINE Negative (NEGATIVE); PH,URINE 5.5 (5.0-8.0); PROTEIN,URINE Negative (NEGATIVE); UGLUCOSE Negative (NEGATIVE); UROBILINOGEN,URINE 0.2 EU/dL (0.2)
[2018-07-31 18:00] LABS: BACTERIA,URINE Rare /HPF (None Seen); RBC,URINE 0-2 /HPF (0-2); SQUAMOUS EPITHELIAL CELL,UR Few /HPF (None Seen); WBC,URINE 0-2 /HPF (0-3)
[2018-07-31 19:06] LABS: SALICYLATE 2.7 mg/dL (2.8-20.0)
== END 2018-07-31 19:21 | disposition home or self-care (01) ==
LOC: ER 16:32
DX: Z04.6 Encounter for general psychiatric examination, requested by authority (principal); F32.9 Major depressive disorder, single episode, unspecified; Z60.2 Problems related to living alone
CPT/HCPCS: 36415; 80048; 80076; 80305; 80329; 81001; 85025; 99284; A4606; G0480 ×2; 81000-TC; Z7610

== ENCOUNTER 2018-08-19 00:13 | Emergency (ER) | payer MEDICARE, OTHER ==
--- NOTE | 2018-08-19 00:20 | NUR ---
DENIES SI/HI OR ANY MEDICAL C/O.
--- NOTE | 2018-08-19 00:21 | NUR ---
CALLED PT BUT DECIDED TO LEAVE.
== END 2018-08-19 00:25 | disposition left against medical advice (07) ==
LOC: ER 00:20
DX: F20.9 Schizophrenia, unspecified (principal); Z60.2 Problems related to living alone; Z53.21 Procedure and treatment not carried out due to patient leaving prior to being seen by health care provider

== ENCOUNTER 2018-11-08 07:17 | Emergency (ER) | payer MEDICARE, OTHER ==
[~2018-11-08] VITALS: Ht 180.3 cm; Wt 81.6 kg
[2018-11-08 07:23] VITALS: BP 146/80
--- NOTE | 2018-11-08 07:43 | NUR ---
PT BIB.SELF, REPORTING SI - NO OTHER COMPLAINTS. PT REQUESTED TO PROVIDE UA. PT REQUESTING TO GET SOMETHING OUT OF CAR-OK'D BY MD TERRY.
--- NOTE | 2018-11-08 08:57 | NUR ---
PATIENT DIDN'T RETURN TO THE ER SINCE HE WENT OUT
--- NOTE | 2018-11-08 09:37 | NUR ---
PT HAS NOT RETURNED FROM 'GOING TO CAR'. MD SANDS TO D/C FROM SYSTEM.
== END 2018-11-08 09:41 | disposition left against medical advice (07) ==
LOC: ER 07:21
DX: F20.9 Schizophrenia, unspecified (principal); Z60.2 Problems related to living alone
CPT/HCPCS: 99281; A4606; Z7502

== ENCOUNTER 2018-11-12 15:36 | Emergency (ER) | payer MEDICARE, OTHER ==
[~2018-11-12] VITALS: Ht 170.2 cm; Wt 74.8 kg
[2018-11-12 15:56] LABS: BASOPHILS % (AUTO) 0.7 % (0.0-2.0); EOSINOPHILS % (AUTO) 8.4 % (0.0-6.0); HEMATOCRIT 45 % (39-51); HEMOGLOBIN 15.6 g/dL (13.5-17.5); LYMPHOCYTES # (AUTO) 2.1 /CMM (0.8-4.8); LYMPHOCYTES % (AUTO) 30.7 % (20.0-44.0); MEAN CORPUSCULAR HGB CONC 34 g/dl (31.0-36.0); MEAN CORPUSCULAR VOLUME 85 fL (80-96); MONOCYTES # (AUTO) 0.7 /CMM (0.1-1.30); MONOCYTES % (AUTO) 9.9 % (2.0-12.0); NEUTROPHILS # (AUTO) 3.5 /CMM (1.8-8.9); NEUTROPHILS % (AUTO) 50.3 % (43.0-81.0); PLATELET COUNT (AUTO) 265 /CMM (150-450); RED BLOOD CELL COUNT(AUTO) 5.33 MIL/uL (4.5-6.0)
[2018-11-12 16:02] LABS: CALCIUM, SERUM 9.3 mg/dL (8.5-10.1); CARBON DIOXIDE 27 mmol/L (21-32); CHLORIDE 102 mmol/L (98-107); GLUCOSE 100 mg/dL (74-106); POTASSIUM 3.7 mmol/L (3.5-5.1); SODIUM SERUM 140 mmol/L (136-145); UREA NITROGEN, BLOOD 9 mg/dL (7-18)
[2018-11-12 16:09] LABS: ACETAMINOPHEN 0 ug/ml (10-30); ALANINE AMINOTRANSFERASE 44 U/L (12-78); ALBUMIN 4.2 g/dL (3.4-5.0); ALCOHOL, BLOOD < 3 mg/dL (0-0); ALKALINE PHOSPHATASE 110 U/L (46-116); ASPARTATE AMINOTRANSFERASE 20 U/L (15-37); BILIRUBIN,DIRECT 0.1 mg/dL (0.0-0.2); BILIRUBIN,TOTAL 0.5 mg/dL (0.2-1.0); SALICYLATE 2.1 mg/dL (2.8-20.0); TOTAL PROTEIN, SERUM 8.5 g/dL (6.4-8.2)
[2018-11-12 16:20] LABS: APPEARANCE,URINE Cloudy (CLEAR); BILIRUBIN,URINE SMALL (NEGATIVE); BLOOD, URINE Negative Ery/uL (NEGATIVE); COLOR,URINE Yellow (YELLOW); KETONES,URINE Negative (NEGATIVE); LEUKOCYTE ESTERASE ,URINE Negative (NEGATIVE); NITRITE, URINE Negative (NEGATIVE); PROTEIN,URINE 30 mg/dl (NEGATIVE); UGLUCOSE 100 MG/DL mg/dL (NEGATIVE)
[2018-11-12 16:32] LABS: RBC,URINE 0-2 /HPF (0-2); WBC,URINE 0-2 /HPF (0-3)
[2018-11-12 16:33] LABS: BACTERIA,URINE Rare /HPF (None Seen); MUCUS,URINE Few /LPF (None Seen); SQUAMOUS EPITHELIAL CELL,UR Few /HPF (None Seen); URINE AMORPHOUS PHOSPHATES Many /HPF (None Seen)
--- NOTE | 2018-11-12 18:28 | NUR ---
Patient discharged with plan to go to [facility] in stable condition. Written and verbal after care instructions given. Patient verbalizes understanding of instruction.
[2018-11-12 18:29] VITALS: BP 145/84
== END 2018-11-12 18:30 | disposition home or self-care (01) ==
LOC: ER 15:38
DX: Z04.6 Encounter for general psychiatric examination, requested by authority (principal); F32.9 Major depressive disorder, single episode, unspecified; F20.9 Schizophrenia, unspecified; Z60.2 Problems related to living alone
CPT/HCPCS: 36415; 80048; 80076; 80305; 81001; 85025; 99283; A4606; G0480 ×2; 81000-TC

== ENCOUNTER 2018-11-21 13:30 | Emergency (ER) | payer MEDICARE, OTHER ==
[~2018-11-21] VITALS: Ht 175.3 cm; Wt 81.6 kg
--- NOTE | 2018-11-21 13:42 | NUR ---
PT BIB SELF C/O SI WITH PLAN TO RUN INTO TRAFFIC, DENIES HI. PT IS CALM AND COOPERATIVE, A/OX4. RESP EVEN UNLABORED. SKIN WARM DRY. NAD NOTED.
--- NOTE | 2018-11-21 13:43 | NUR ---
LABORER MARINE TERMINAL DRAWING BLOOD IN TRIAGE ROOM. PT PROVIDED URINE SAMPLE.
[2018-11-21 13:53] LABS: BASOPHILS % (AUTO) 0.7 % (0.0-2.0); EOSINOPHILS % (AUTO) 3.9 % (0.0-6.0); HEMATOCRIT 50 % (39-51); HEMOGLOBIN 17.1 g/dL (13.5-17.5); LYMPHOCYTES # (AUTO) 1.5 /CMM (0.8-4.8); LYMPHOCYTES % (AUTO) 22.1 % (20.0-44.0); MEAN CORPUSCULAR HGB CONC 34 g/dl (31.0-36.0); MEAN CORPUSCULAR VOLUME 86 fL (80-96); MONOCYTES # (AUTO) 0.5 /CMM (0.1-1.30); MONOCYTES % (AUTO) 8.1 % (2.0-12.0); NEUTROPHILS # (AUTO) 4.4 /CMM (1.8-8.9); NEUTROPHILS % (AUTO) 65.2 % (43.0-81.0); PLATELET COUNT (AUTO) 271 /CMM (150-450); RED BLOOD CELL COUNT(AUTO) 5.81 MIL/uL (4.5-6.0); WHITE BLOOD COUNT (AUTO) 6.8 K/uL (4.3-11.0)
[2018-11-21 13:56] LABS: APPEARANCE,URINE Hazy (CLEAR); BILIRUBIN,URINE SMALL (NEGATIVE); BLOOD, URINE Negative Ery/uL (NEGATIVE); COLOR,URINE Yellow (YELLOW); KETONES,URINE >=160 (NEGATIVE); LEUKOCYTE ESTERASE ,URINE Negative (NEGATIVE); NITRITE, URINE Negative (NEGATIVE); PROTEIN,URINE 30 mg/dl (NEGATIVE); UGLUCOSE Negative (NEGATIVE); UROBILINOGEN,URINE 0.2 EU/dL (0.2)
[2018-11-21 14:00] LABS: CALCIUM, SERUM 9.6 mg/dL (8.5-10.1); CARBON DIOXIDE 24 mmol/L (21-32); CHLORIDE 99 mmol/L (98-107); CREATININE 1.1 mg/dL (0.6-1.3); GLUCOSE 104 mg/dL (74-106); SODIUM SERUM 137 mmol/L (136-145); UREA NITROGEN, BLOOD 11 mg/dL (7-18)
[2018-11-21 14:04] LABS: BACTERIA,URINE None seen /HPF (None Seen); SQUAMOUS EPITHELIAL CELL,UR Few /HPF (None Seen)
[2018-11-21 14:06] LABS: ACETAMINOPHEN 0 ug/ml (10-30); ALANINE AMINOTRANSFERASE 25 U/L (12-78); ALBUMIN 4.5 g/dL (3.4-5.0); ALCOHOL, BLOOD < 3 mg/dL (0-0); ALKALINE PHOSPHATASE 106 U/L (46-116); ASPARTATE AMINOTRANSFERASE 20 U/L (15-37); BILIRUBIN,DIRECT 0.1 mg/dL (0.0-0.2); BILIRUBIN,TOTAL 0.6 mg/dL (0.2-1.0); SALICYLATE 3.8 mg/dL (2.8-20.0); TOTAL PROTEIN, SERUM 9.2 g/dL (6.4-8.2)
--- NOTE | 2018-11-21 14:28 | NUR ---
SPOKE WITH ESPERANZA AT [facility]; REQUESTED A PACKET ON PT. PACKET FAXED.
--- NOTE | 2018-11-21 14:59 | NUR ---
PATIENT WILL BE TRANSFERED TO [facility] ACCEPT[facility] BY DR MATOS NUMBER TO CALL FOR REPORT [facility] ETA OF 1600 WAS GIVEN. TRIP#[id number]
--- NOTE | 2018-11-21 15:51 | NUR ---
REPORT GIVEN TO LIZABETH FROM [facility]
--- NOTE | 2018-11-21 16:20 | NUR ---
[facility] TRANSPORT ARRIVED TO ER TO TRANSPORT PT TO [facility]. METEOROLOGY FACULTY MEMBER AND RN WENT TO PT'S ER BED, AND HE IS NOT IN THE ROOM. PT ELOPED.
--- NOTE | 2018-11-21 17:43 | NUR ---
DR SMITH'S VERBAL ORDER TO GIVE NS 1L IVF
[2018-11-21] MEDS ORDERED: ACETAMINOPHEN ES 500 MG TABLET ONE (17:44)
[2018-11-21] MEDS ORDERED: ACETAMINOPHEN ES 500 MG TABLET PO ONE (18:00)
--- NOTE | 2018-11-21 18:28 | NUR ---
CALLED [facility], REPORTED HR OF 106, PER LIZABETH, OK TO ACCEPT
[2018-11-21] MEDS ORDERED: IV NS 0.9% 1,000 ML BAG IV ONE (18:30)
--- NOTE | 2018-11-21 19:17 | NUR ---
PER PT'S DOES NOT WANT TO GO TO [facility], DR SMITH MADE AWARE. PT DENIES ANY S/I / H/I OR MEDICAL PROBLEMS, HE FEELS BETTER AND PREFERS NOT TO GO TO [facility], PT IN STABLE CONDITION, VSS, RESPIRATIONS EVEN AND UNLABORED, NO SOB, NAD NOTED, PT AMBULATORY WITH STEADY GAIT, IV REMOVED, PRESSURE APPLIED. NO BLEEDING NOTED.
[2018-11-21 19:22] VITALS: BP 110/64
== END 2018-11-21 19:25 | disposition home or self-care (01) ==
LOC: ER 13:34
DX: R45.851 Suicidal ideations (principal); F20.9 Schizophrenia, unspecified; R00.0 Tachycardia, unspecified; Z86.59 Personal history of other mental and behavioral disorders; Z04.6 Encounter for general psychiatric examination, requested by authority
CPT/HCPCS: 36415; 80048-TC; 80076-TC; 80305; 81000-TC; 85025-TC; G0480; J7030

== ENCOUNTER 2021-10-09 19:11 | Emergency (ER) | payer MEDICARE, OTHER | END 2021-10-10 02:16 | disposition left against medical advice (07) | LOC: ER 19:15 | DX: Z53.21 Procedure and treatment not carried out due to patient leaving prior to being seen by health care provider (principal) ==

== ENCOUNTER 2021-10-26 16:45 | Emergency (ER) | payer MEDICARE, OTHER ==
[~2021-10-26] VITALS: Ht 175.3 cm; Wt 97.5 kg
--- NOTE | 2021-10-26 16:56 | NUR ---
TO ER BED 18 FOR MEDICAL CLEARANCE TO VOLUNTARY GO TO [facility] WITH SI PLAN TO RUN INTO TRAFFIC, AAOX3, BREATHING EVEN AND NON LABORED, PLACED IN 1:1 SUPERVISION.
[2021-10-26 17:41] LABS: BILIRUBIN,URINE NEGATIVE (NEGATIVE); COLOR,URINE YELLOW (YELLOW); LEUKOCYTE ESTERASE ,URINE NEGATIVE (NEGATIVE); NITRITE, URINE NEGATIVE (NEGATIVE); PH,URINE 6.5 (5.0-8.0); PROTEIN,URINE NEGATIVE (NEGATIVE); UGLUCOSE NEGATIVE (NEGATIVE); UROBILINOGEN,URINE 0.2 EU/dL (0.2)
[2021-10-26 17:46] LABS: BASOPHILS # (AUTO) 0.1 K/uL (0.0-0.2); BASOPHILS % (AUTO) 0.6 % (0.0-2.0); HEMATOCRIT 45 % (39-51); LYMPHOCYTES # (AUTO) 2.5 K/uL (0.8-4.8); LYMPHOCYTES % (AUTO) 28.8 % (20.0-44.0); MEAN CORPUSCULAR HGB CONC 33 g/dl (31.0-36.0); MEAN CORPUSCULAR VOLUME 85 fL (80-96); MONOCYTES # (AUTO) 0.8 K/uL (0.1-1.30); MONOCYTES % (AUTO) 9.4 % (2.0-12.0); NEUTROPHILS # (AUTO) 5.1 K/uL (1.8-8.9); NEUTROPHILS % (AUTO) 58.2 % (43.0-81.0); PLATELET COUNT (AUTO) 277 K/uL (150-450); RED BLOOD CELL COUNT(AUTO) 5.24 MIL/uL (4.5-6.0); WHITE BLOOD COUNT (AUTO) 8.7 K/uL (4.3-11.0)
[2021-10-26 17:50] LABS: CALCIUM, SERUM 8.8 mg/dL (8.5-10.1); CARBON DIOXIDE 24 mmol/L (21-32); CHLORIDE 102 mmol/L (98-107); CREATININE 0.7 mg/dL (0.6-1.3); GLUCOSE 88 mg/dL (74-106); POTASSIUM 3.5 mmol/L (3.5-5.1); SODIUM SERUM 138 mmol/L (136-145); UREA NITROGEN, BLOOD 10 mg/dL (7-18)
[2021-10-26 18:06] LABS: ACETAMINOPHEN < 2 ug/ml (10-30); ALANINE AMINOTRANSFERASE 36 U/L (12-78); ALBUMIN 3.8 g/dL (3.4-5.0); ALCOHOL, BLOOD < 3 mg/dL (0-0); ALKALINE PHOSPHATASE 128 U/L (46-116); ASPARTATE AMINOTRANSFERASE 24 U/L (15-37); BILIRUBIN,DIRECT 0.1 mg/dL (0.0-0.2); BILIRUBIN,TOTAL 0.2 mg/dL (0.2-1.0); TOTAL PROTEIN, SERUM 8.1 g/dL (6.4-8.2)
--- NOTE | 2021-10-26 19:31 | NUR ---
COVID ANTIGEN COLLECTED AND SENT TO LAB
--- NOTE | 2021-10-26 21:33 | NUR ---
FAXED CLINICALS AND FACESHEET TO [facility]
--- NOTE | 2021-10-26 23:51 | NUR ---
ACCEPTED UNDER DR ALMONTE UNIT 2 CALL FOR REPORT / ROOM TO BE GIVEN AFTER REPORT
--- NOTE | 2021-10-27 00:01 | NUR ---
REPORT GIVEN TO MITRA
--- NOTE | 2021-10-27 00:04 | NUR ---
[facility] ETA 10 MINUTES
--- NOTE | 2021-10-27 00:26 | NUR ---
EMS GIVEN REPORT AT BEDSIDE
[2021-10-27 00:29] VITALS: BP 122/70
--- NOTE | 2021-10-27 00:29 | NUR ---
PT TRANSFERRED TO [facility] VIA AMBULANCE.
== END 2021-10-27 00:30 ==
LOC: ER 16:52
DX: R45.851 Suicidal ideations (principal); F20.9 Schizophrenia, unspecified; Z20.822 Contact with and (suspected) exposure to COVID-19; Z59.02 Unsheltered homelessness; Z79.899 Other long term (current) drug therapy
CPT/HCPCS: 36415; 80048-TC; 80076-TC; 85025-TC; C9803; G0480

== ENCOUNTER 2021-10-31 08:57 | Emergency (ER) | payer MEDICARE, OTHER ==
[~2021-10-31] VITALS: Ht 175.3 cm; Wt 98.0 kg
[2021-10-31 09:26] LABS: BASOPHILS # (AUTO) 0.1 K/uL (0.0-0.2); BASOPHILS % (AUTO) 0.6 % (0.0-2.0); EOSINOPHILS % (AUTO) 1.7 % (0.0-6.0); HEMATOCRIT 43 % (39-51); HEMOGLOBIN 14.6 g/dL (13.5-17.5); LYMPHOCYTES # (AUTO) 1.7 K/uL (0.8-4.8); LYMPHOCYTES % (AUTO) 18.5 % (20.0-44.0); MEAN CORPUSCULAR HGB CONC 34 g/dl (31.0-36.0); MEAN CORPUSCULAR VOLUME 84 fL (80-96); MONOCYTES # (AUTO) 0.7 K/uL (0.1-1.30); MONOCYTES % (AUTO) 7.6 % (2.0-12.0); NEUTROPHILS # (AUTO) 6.7 K/uL (1.8-8.9); NEUTROPHILS % (AUTO) 71.6 % (43.0-81.0); PLATELET COUNT (AUTO) 252 K/uL (150-450); RED BLOOD CELL COUNT(AUTO) 5.04 MIL/uL (4.5-6.0); WHITE BLOOD COUNT (AUTO) 9.3 K/uL (4.3-11.0)
[2021-10-31 09:49] LABS: ALANINE AMINOTRANSFERASE 35 U/L (12-78); ALBUMIN 4.1 g/dL (3.4-5.0); ALCOHOL, BLOOD 5 mg/dL (0-0); ALKALINE PHOSPHATASE 141 U/L (46-116); ASPARTATE AMINOTRANSFERASE 24 U/L (15-37); BILIRUBIN,DIRECT 0.1 mg/dL (0.0-0.2); BILIRUBIN,TOTAL 0.3 mg/dL (0.2-1.0); CALCIUM, SERUM 9.1 mg/dL (8.5-10.1); CARBON DIOXIDE 26 mmol/L (21-32); CHLORIDE 103 mmol/L (98-107); CREATININE 0.8 mg/dL (0.6-1.3); GLUCOSE 89 mg/dL (74-106); POTASSIUM 3.6 mmol/L (3.5-5.1); SODIUM SERUM 138 mmol/L (136-145); TOTAL PROTEIN, SERUM 8.6 g/dL (6.4-8.2); UREA NITROGEN, BLOOD 9 mg/dL (7-18)
[2021-10-31 10:21] LABS: ACETAMINOPHEN < 10 ug/ml (10-30)
--- NOTE | 2021-10-31 10:27 | NUR ---
URINE COLLECTED AND SENT TO LAB
[2021-10-31 11:20] LABS: BILIRUBIN,URINE NEGATIVE (NEGATIVE); COLOR,URINE YELLOW (YELLOW); LEUKOCYTE ESTERASE ,URINE NEGATIVE (NEGATIVE); NITRITE, URINE NEGATIVE (NEGATIVE); PH,URINE 6.5 (5.0-8.0); PROTEIN,URINE NEGATIVE (NEGATIVE); UGLUCOSE NEGATIVE (NEGATIVE); UROBILINOGEN,URINE 0.2 EU/dL (0.2)
--- NOTE | 2021-10-31 13:50 | NUR ---
SS Consult: SS Consult requested for SI & homelessness. The pt. is a 31-year-old Black male patient who came in to the ER with C/O SI with plan to "run into traffic" due to auditory hallucination that tell him 'to kill myself". Upon SS consult, the pt. is A&O x 4 and makes good eye contact. The pt. appears unkempt, mal odorous and presents with a depressed mood and flat affect. Pt. states he is currently experiencing auditory hallucinations that tell him to kill himself. Pt. stated he has thoughts of suicide with plan to run into traffic. SW provided emotional support and offered voluntary psych Tx and pt. is agreeable. SW explored pt.'s living situation. Per the pt., he has been experiencing homelessness and has recently been staying with a friend. Pt. states he has no support system. SW explored pt.'s drug & ETOH use. Pt. states he uses alcohol occasionally. SW explored pt.'s mental health Hx. Per the pt., he has been diagnosed with Schizophrenia in the past. Per pt. he has been prescribed Abilify which he is compliant with at the moment. Pt. denies current HI and denies current visual hallucinations. Pt. states he receives food stamps, GR SSI & SSDI. Per pt. he is ambulatory & independent with all his ADL's. Plan: Pt. will be to [facility] [[address] [place] [address] FAX:[phone]] for voluntary psychiatric treatment. Pt. signed homeless waiver & it was placed in the pt.'s chart. [place] provided homeless resources to pt. and he accepted them.
--- NOTE | 2021-10-31 13:54 | NUR ---
CA referred pt. to [facility] [[address] [place] [address] FAX:[phone]] for psychiatric treatment on a voluntray basis.
--- NOTE | 2021-10-31 14:53 | NUR ---
PT ACCEPTED TO [facility] UNDER DR. BURROUGHS CALL [phone] HENOK
--- NOTE | 2021-10-31 15:08 | NUR ---
Accepting MD from [place] is Dr Leon. Call [phone] for RN to RN report.
--- NOTE | 2021-10-31 15:55 | NUR ---
[facility] ETA [id number]
[2021-10-31 18:58] VITALS: BP 118/72
== END 2021-10-31 18:59 ==
LOC: ER 09:01
DX: R45.851 Suicidal ideations (principal); F20.9 Schizophrenia, unspecified; Z59.01 Sheltered homelessness; Z79.899 Other long term (current) drug therapy
CPT/HCPCS: 36415; 80048-TC; 80076-TC; 85025-TC; C9803; G0480

== ENCOUNTER 2021-11-05 19:53 | Emergency (ER) | payer MEDICARE, OTHER ==
[~2021-11-05] VITALS: Ht 170.2 cm; Wt 97.5 kg
--- NOTE | 2021-11-05 22:40 | NUR ---
BIBS. AAOX4. NOT IN RESP DISTRESS. AMBULATORY. SI PLANS TO RUN INTO TRAFFIC. NO HI. DENIES HALLUCINATIONS. WANTS VOLUNTARY ADMISSION. WAS AT THE BEDSIDE. AWAITING CLEARANCE
[2021-11-05 23:22] LABS: BASOPHILS # (AUTO) 0.1 K/uL (0.0-0.2); BASOPHILS % (AUTO) 0.6 % (0.0-2.0); EOSINOPHILS % (AUTO) 7.9 % (0.0-6.0); HEMATOCRIT 43 % (39-51); HEMOGLOBIN 14.6 g/dL (13.5-17.5); LYMPHOCYTES # (AUTO) 2.3 K/uL (0.8-4.8); LYMPHOCYTES % (AUTO) 23.8 % (20.0-44.0); MEAN CORPUSCULAR HGB CONC 34 g/dl (31.0-36.0); MEAN CORPUSCULAR VOLUME 85 fL (80-96); MONOCYTES # (AUTO) 0.9 K/uL (0.1-1.30); MONOCYTES % (AUTO) 9.1 % (2.0-12.0); NEUTROPHILS # (AUTO) 5.8 K/uL (1.8-8.9); NEUTROPHILS % (AUTO) 58.6 % (43.0-81.0); PLATELET COUNT (AUTO) 226 K/uL (150-450); RED BLOOD CELL COUNT(AUTO) 5.06 MIL/uL (4.5-6.0); WHITE BLOOD COUNT (AUTO) 9.8 K/uL (4.3-11.0)
[2021-11-05 23:45] LABS: CARBON DIOXIDE 28 mmol/L (21-32); CHLORIDE 103 mmol/L (98-107); GLUCOSE 104 mg/dL (74-106); POTASSIUM 4.2 mmol/L (3.5-5.1); SODIUM SERUM 137 mmol/L (136-145); UREA NITROGEN, BLOOD 11 mg/dL (7-18)
[2021-11-05 23:51] LABS: ALANINE AMINOTRANSFERASE 34 U/L (12-78); ALBUMIN 3.7 g/dL (3.4-5.0); ALKALINE PHOSPHATASE 121 U/L (46-116); ASPARTATE AMINOTRANSFERASE 17 U/L (15-37); BILIRUBIN,DIRECT 0.1 mg/dL (0.0-0.2); BILIRUBIN,TOTAL 0.2 mg/dL (0.2-1.0)
[2021-11-05 23:54] LABS: ACETAMINOPHEN 0 ug/ml (10-30); ALCOHOL, BLOOD < 3 mg/dL (0-0)
[2021-11-06 00:53] LABS: BILIRUBIN,URINE NEGATIVE (NEGATIVE); COLOR,URINE YELLOW (YELLOW); LEUKOCYTE ESTERASE ,URINE NEGATIVE (NEGATIVE); NITRITE, URINE NEGATIVE (NEGATIVE); PROTEIN,URINE NEGATIVE (NEGATIVE); UGLUCOSE NEGATIVE (NEGATIVE); UROBILINOGEN,URINE 0.2 EU/dL (0.2)
--- NOTE | 2021-11-06 04:12 | NUR ---
PER ART AT [facility] INTAKE PT GOT ACCE[RUBY AT [facility] BY DR LYMAN. PT WILL BE PICKED UP AFTER 1130 AM
[2021-11-06 10:15] VITALS: BP 135/84
--- NOTE | 2021-11-06 10:15 | NUR ---
PT TRANSPORTED TO [facility] IN STABLE CONDITION.
== END 2021-11-06 10:15 ==
LOC: ER 19:56
DX: R45.851 Suicidal ideations (principal); Z59.02 Unsheltered homelessness; Z20.822 Contact with and (suspected) exposure to COVID-19; F20.9 Schizophrenia, unspecified; F19.10 Other psychoactive substance abuse, uncomplicated
CPT/HCPCS: 36415; 80048-TC; 80076-TC; 85025-TC; C9803; G0480

== ENCOUNTER 2021-11-08 08:17 | Emergency (ER) | payer MEDICARE, OTHER ==
[~2021-11-08] VITALS: Ht 170.2 cm; Wt 97.5 kg
[2021-11-08 09:00] LABS: BASOPHILS # (AUTO) 0.1 K/uL (0.0-0.2); BASOPHILS % (AUTO) 0.7 % (0.0-2.0); EOSINOPHILS % (AUTO) 3.2 % (0.0-6.0); HEMATOCRIT 45 % (39-51); HEMOGLOBIN 14.8 g/dL (13.5-17.5); LYMPHOCYTES # (AUTO) 2.3 K/uL (0.8-4.8); LYMPHOCYTES % (AUTO) 23.9 % (20.0-44.0); MEAN CORPUSCULAR HGB CONC 33 g/dl (31.0-36.0); MEAN CORPUSCULAR VOLUME 86 fL (80-96); MONOCYTES # (AUTO) 0.8 K/uL (0.1-1.30); MONOCYTES % (AUTO) 8.1 % (2.0-12.0); NEUTROPHILS # (AUTO) 6.3 K/uL (1.8-8.9); NEUTROPHILS % (AUTO) 64.1 % (43.0-81.0); PLATELET COUNT (AUTO) 259 K/uL (150-450); RED BLOOD CELL COUNT(AUTO) 5.22 MIL/uL (4.5-6.0); WHITE BLOOD COUNT (AUTO) 9.7 K/uL (4.3-11.0)
[2021-11-08 09:05] LABS: BILIRUBIN,URINE NEGATIVE (NEGATIVE); COLOR,URINE YELLOW (YELLOW); LEUKOCYTE ESTERASE ,URINE NEGATIVE (NEGATIVE); NITRITE, URINE NEGATIVE (NEGATIVE); PH,URINE 7.5 (5.0-8.0); PROTEIN,URINE NEGATIVE (NEGATIVE); UGLUCOSE NEGATIVE (NEGATIVE); UROBILINOGEN,URINE 0.2 EU/dL (0.2)
[2021-11-08 09:31] LABS: CALCIUM, SERUM 9.8 mg/dL (8.5-10.1); CARBON DIOXIDE 29 mmol/L (21-32); CHLORIDE 100 mmol/L (98-107); GLUCOSE 98 mg/dL (74-106); SODIUM SERUM 138 mmol/L (136-145); UREA NITROGEN, BLOOD 10 mg/dL (7-18)
[2021-11-08 09:39] LABS: ALANINE AMINOTRANSFERASE 40 U/L (12-78); ALBUMIN 4.1 g/dL (3.4-5.0); ALKALINE PHOSPHATASE 127 U/L (46-116); ASPARTATE AMINOTRANSFERASE 30 U/L (15-37); BILIRUBIN,DIRECT 0.1 mg/dL (0.0-0.2); BILIRUBIN,TOTAL 0.2 mg/dL (0.2-1.0); TOTAL PROTEIN, SERUM 8.5 g/dL (6.4-8.2)
[2021-11-08 09:44] LABS: ACETAMINOPHEN < 10 ug/ml (10-30); ALCOHOL, BLOOD < 3 mg/dL (0-0)
[2021-11-08 11:50] VITALS: BP 122/79
== END 2021-11-08 14:50 | disposition left against medical advice (07) ==
LOC: ER 08:20
DX: R45.851 Suicidal ideations (principal); F20.9 Schizophrenia, unspecified; R03.0 Elevated blood-pressure reading, without diagnosis of hypertension; Z20.822 Contact with and (suspected) exposure to COVID-19; Z53.29 Procedure and treatment not carried out because of patient's decision for other reasons
CPT/HCPCS: 36415; 80048-TC; 80076-TC; 85025-TC; C9803; G0480

== ENCOUNTER 2021-11-15 09:22 | Inpatient (IN) | payer OTHER ==
[~2021-11-15] VITALS: Ht 175.3 cm; Wt 97.5 kg
[2021-11-15 15:00] VITALS: BP 138/80
[2021-11-15] MEDS ORDERED: ACETAMINOPHEN ES 500 MG TABLET PO PRN (15:00)
[2021-11-15] MEDS ORDERED: MAG HYDROX/AL HYDROX/SIMETH 30 ML UDC PO PRN (15:00)
[2021-11-15] MEDS ORDERED: MAGNESIUM HYDROXIDE 30 ML UDC PO PRN (15:00)
[2021-11-15] MEDS ORDERED: IBUPROFEN 200 MG TABLET PO PRN (15:00)
--- NOTE | 2021-11-15 15:49 | NUR ---
GPS ADMISSION NOTES ADMITTED 31 Y/O PT TO UNIT AT 1450, AMBULATORY ACCOMPANIED BY DR MAIN STAFF NAMED CLAIRE. PT IS FOR CLINICAL TRIALS UNDER THE CARE OF DR MAIN. PATIENT ORIENTED TO STAFF AND UNIT POLICIES. PATIENT IS ALERT AND ORIENTED X4. CALM AND COOPERATIVE. ABLE TO MAKE NEEDS KNOWN, SPEECH IS CLEAR, DENIES SUICIDAL, HOMICIDAL IDEATION AT THIS TIME, SAME DENIES VISUAL AND AUDITORY HALLUCINATION. RAPID COVID ANTIGEN-19 SWAB DONE AND CAME OUT WITH NEGATIVE RESULT. ON ROOM AIR, BREATHING EVEN AND UNLABORED, NO S/S OF ACUTE DISTRESS NOTED. PATIENT IS AMBULATORY WITH STEADY GAIT. CONTINENT OF BOTH BLADDER AN BOWEL. NO SKIN ISSUES NOTED. SAFETY MEASURES ENFORCED. WILL CONTINUE TO MONITOR FOR SAFETY, COMFORT AND BEHAVIOR Q15 MINUTES PER GPS PROTOCOL.
[2021-11-15 16:00] VITALS: BP 138/80
[2021-11-15] MEDS ORDERED: MISCELLANEOUS MED 1 EA EA PO SCH (19:30)
[2021-11-15 20:00] VITALS: BP 138/80
--- NOTE | 2021-11-15 20:00 | NUR ---
GPS NOTES RECEIVED PATIENT IN BED RESTING COMFORTABLY. ALERT AND ORIENTED X4. NO S/SX OF ACUTE RESPIRATORY DISTRESS NOTED. PATIENT IS CALM, COOPERATIVE, WITHDRAWN. DENIES SI/HI/VH AT THIS TIME. PATIENT IS HAVING AUDITORY HALLUCINATION. PATIENT STATES, HE IS HEARING VOICES AT TIMES, BUT NO COMMAND HALLUCINATION. ENCOURAGED PATIENT TO ATTEND IN GROUP ACTIVITIES. DENIES PAIN OR DISCOMFORT AT THIS TIME. SAFETY PRECAUTIONS IN PLACE. WILL CONTINUE TO MONITOR Q15MIN ROUNDS FOR SAFETY AND BEHAVIOR.
[2021-11-15] MEDS: ZOLPIDEM TARTRATE 10 MG TABLET PO PRN (21:36)
--- NOTE | 2021-11-15 21:36 | NUR ---
GPS NOTES PATIENT C/O INABILITY TO SLEEP. PRN AMBIEN 10MG PO GIVEN ORDERED PER PT'S REQUEST. WILL CONTINUE TO MONITOR.
[2021-11-16] MEDS ORDERED: ARIP10TA57 PO (06:56)
[2021-11-16 08:00] VITALS: BP 104/71
--- NOTE | 2021-11-16 09:27 | NUR ---
RN Notes: Received pt. asleep in bed, breathing is even and unlabored. Ate 100% for breakfast and went on smoking. encouraged to verbalize feelings and motivated to attend group activity. Needs attended and will continue to monitor for safety.
[2021-11-16 16:00] VITALS: BP 134/76
--- NOTE | 2021-11-16 20:31 | NUR ---
GPS RN NOTES: RECEIVED PATIENT IN ROOM, AWAKE, A/O X3. APPEARS DEPRESSED. CALM AND COOPERATIVE, PASSIVE, WITHDRAWN, GUARDED. NO S/S OF DISTRESS. RESPIRATION EVEN AND UNLABORED WITH EQUAL RISE AND FALL OF THE CHEST, ON ROOM AIR. PATIENT DENIES SI/HI AT THIS TIME. DENIES V/A HALLUCINATIONS. PATIENT LEFT UNIT FOR A SMOKE BREAK AT 1940 FOR 10 MINUTES. OFFERED FLUID AND SNACKS TOLERATED. WILL CONTINUE TO MONITOR [id number] FOR SAFETY, MOOD AND BEHAVIOR.
[2021-11-16] MEDS: ZOLPIDEM TARTRATE 10 MG TABLET PO PRN (21:00)
--- NOTE | 2021-11-16 21:03 | NUR ---
GPS RN NOTES: Patient requested for sleep medication due to insomnia. Ambien 10mg given PO PRN at 2100. Will continue to monitor.
--- NOTE | 2021-11-17 06:57 | NUR ---
GPS RN CLOSING NOTES: PATIENT IS CURRENTLY IN BED, AWAKE A/O X3. PATIENT SLEPT 8HRS THIS SHIFT. PATIENT HAS NO S/S OF DISTRESS. RESPIRATION EVEN AND UNLABORED WITH EQUAL RISE AND FALL OF THE CHEST, ON ROOM AIR. ALL PATIENT CARE NEEDS HAVE BEEN MET ANTICIPATED. WILL CONTINUE TO MONITOR AND ENDORSE TO AM SHIFT.
[2021-11-17 08:00] VITALS: BP 125/73
[2021-11-17] MEDS: LORAZEPAM 1 MG TABLET FOR AGITATION/ANXIETY PO PRN ×2 (08:08→19:58)
--- NOTE | 2021-11-17 10:00 | NUR ---
RN Notes: Received pt. asleep in bed, breathing is even and unlabored. Ate 100% for breakfast. Pt. was anxious and asking for ativan po prn and given. Encouraged to verbalize feelings and motivated to attend group activity. Needs attended and will continue to monitor for safety.
[2021-11-17 16:00] VITALS: BP 110/61
--- NOTE | 2021-11-17 20:01 | NUR ---
GPS RN OPENING NOTES: RECEIVED PATIENT IN ROOM, AWAKE, A/O X4. APPEARS DEPRESSED. ANXIOUS, WITHDRAWN, GUARDED, COOPERATIVE. PATIENT LEFT UNIT AT 1940 FOR A SMOKE AND CAME BACK 1954. RESPIRATION EVEN AND UNLABORED WITH EQUAL RISE AND FALL OF THE CHEST, ON ROOM AIR. PATIENT DENIES SI/HI AT THIS TIME. DENIES V/A HALLUCINATIONS. OFFERED FLUID AND SNACKS TOLERATED. WILL CONTINUE TO MONITOR [id number] FOR SAFETY, MOOD AND BEHAVIOR.
--- NOTE | 2021-11-17 20:02 | NUR ---
GPS RN NOTES: PATIENT C/O ANXIETY AND REQUESTED FOR ATIVAN. ATIVAN 1MG GIVEN PO PRN AT 1957. WILL CONTINUE TO MONITOR
--- NOTE | 2021-11-18 06:40 | NUR ---
GPS RN CLOSING NOTES: PATIENT IS CURRENTLY IN BED, AWAKE A/O X4. PATIENT SLEPT 8HRS THIS SHIFT. PATIENT LEFT THE UNIT FOR SMOKE BREAK 3X THIS SHIFT. PATIENT HAS NO S/S OF DISTRESS. RESPIRATION EVEN AND UNLABORED WITH EQUAL RISE AND FALL OF THE CHEST, ON ROOM AIR. NO BEHAVIORAL ISSUES THIS SHIFT. ALL PATIENT CARE NEEDS HAVE BEEN MET ANTICIPATED. WILL CONTINUE TO MONITOR AND ENDORSE TO AM SHIFT.
[2021-11-18 08:00] VITALS: BP 120/79
--- NOTE | 2021-11-18 09:12 | NUR ---
RN Notes : Received pt. asleep in bed, breathing is even and unlabored. Ate 100% for breakfast.Pt. went for smoking.Encouraged to verbalize feelings and motivated to attend group activity. Needs attended and will continue to monitor for safety.
[2021-11-18 16:00] VITALS: BP 120/74
--- NOTE | 2021-11-18 19:50 | NUR ---
GPS RN NOTE, PATIENT HAS A COMPLAINT OF FEELING ANXIOUS IS REQUESTING ATIVAN AT THIS TIME. PATIENT VITAL SIGNS ARE STABLE. GAVE ATIVAN 1 MG PO Q6HR PRN ORDERED. WILL REASSESS FOR ANXIETY AND I WILL CONTINUE TO MONITOR THIS PATIENT WITH THE HELP OF STAFF.
[2021-11-18] MEDS: LORAZEPAM 1 MG TABLET FOR AGITATION/ANXIETY PO PRN (19:53)
--- NOTE | 2021-11-18 19:53 | NUR ---
GPS RN NOTE, RECEIVED PATIENT AWAKE AND IN BED, NO S/S OR COMPLAINTS OF PAIN AT THIS TIME. PATIENT IS DISPLAYING NO S/S OF APPARENT DISTRESS AT THIS TIME. PATIENT BREATHING IS UNLABORED WITH EQUAL RISE AND FALL OF THE CHEST. PATIENT IS ALERT AND ORIENTED X 4 ON ROOM AIR WITH A SPO2 99%. PATIENT IS COMPLIANT WITH MEDICATIONS, ANXIOUS, POLITE, AND COOPERATIVE. PATIENT DENIES SUICIDAL AND HOMICIDAL IDEATIONS AT THIS TIME. PATIENT IS HAVING THOUGHTS OF LEAVING ON SATURDAY DUE TO A FAMILY EMERGENCY. PATIENT HAS NO NEEDS AT THIS TIME. PATIENT EDUCATED ON THE USE OF THE CALL FELIX. PATIENT BED SIDE RAILS UP X 2 FOR SAFETY. PATIENT BED IS LOCKED, LOW, WITH BED ALARM ON. WILL CONTINUE TO MONITOR THIS PATIENT Q15 MINUTES WITH THE HELP OF STAFF TO MAINTAIN SAFETY.
[2021-11-18] MEDS: ZOLPIDEM TARTRATE 10 MG TABLET PO PRN (21:13)
--- NOTE | 2021-11-18 21:13 | NUR ---
GPS RN NOTE, PATIENT HAS A COMPLAINT OF NOT BEING ABLE TO SLEEP AND IS REQUESTING AMBIEN AT THIS TIME. PATIENT VITAL SIGNS ARE STABLE. GAVE AMBIEN 10MG PO HS PRN ORDERED. WILL REASSESS FOR INSOMNIA AND I WILL CONTINUE TO MONITOR THIS PATIENT WITH THE HELP OF STAFF.
[2021-11-19 06:17] VITALS: BP 115/71
[2021-11-19 08:00] VITALS: BP 135/79
[2021-11-19] MEDS: LORAZEPAM 1 MG TABLET FOR AGITATION/ANXIETY PO PRN (09:03)
--- NOTE | 2021-11-19 09:03 | NUR ---
Patient c/o anxiety medicated with Ativan 1mg x1 now will continue to monitor.
--- NOTE | 2021-11-19 13:00 | NUR ---
PATIENT ISOLATIVE AND WITHDRAWN ,PREOCCUPIED WITH HIS OWN THOUGHTS,EASILY IRRITABLE AND AND ANXIOUS ,MOOD DEPRESSED ,NO PLAN FOR SELF CARE .WILL CONTINUE TO MONITOR FOR SAFETY
[2021-11-19 16:00] VITALS: BP 135/76
--- NOTE | 2021-11-19 19:45 | NUR ---
GPS NOTES PATIENT IN BED RESTING COMFORTABLY. ALERT . NO S/SX OF ACUTE RESPIRATORY DISTRESS NOTED. PATIENT IS CALM, COOPERATIVE ATT HIS TIME, WITHDRAWN. DENIES SI/HI/VH AT THIS TIME. PATIENT IS HAVING AUDITORY HALLUCINATION. PATIENT STATES, HE IS HEARING VOICES AT TIMES, BUT NO COMMAND HALLUCINATION. ENCOURAGED PATIENT TO ATTEND IN GROUP ACTIVITIES. DENIES PAIN OR DISCOMFORT AT THIS TIME. SAFETY PRECAUTIONS IN PLACE. WILL CONTINUE TO MONITOR Q15MIN FOR SAFETY AND BEHAVIOR.
[2021-11-19 20:00] VITALS: BP 112/69
[2021-11-19] MEDS: ZOLPIDEM TARTRATE 10 MG TABLET PO PRN (21:41)
--- NOTE | 2021-11-19 21:44 | NUR ---
RN NOTES: INSOMNIA PT.C/O UNABLE TO SLEEP PRN AMBIEN 10 MG PO GIVEN PER PT. REQUEST, WILL CONTINUE TO MONITOR.
--- NOTE | 2021-11-20 06:06 | NUR ---
GPS RN CLOSING NOTES: PATIENT RESTING HIS ROOM. SLEPT 7 HRS THIS SHIFT, NO S/S OF ACUTE DISTRESS NOTED, NO CHANGE OF CONDITION NOTED,NO BEHAVIOR PROBLEMS NOTED . ALL PATIENT CARE NEEDS HAVE BEEN MET ANTICIPATED. WILL CONTINUE TO MONITOR FOR SAFETY AND BEHAVIOR.
[2021-11-20 08:00] VITALS: BP 136/74
--- NOTE | 2021-11-20 11:30 | NUR ---
Patient discharged to home in stable condition.Compliant with medications ,cooperative with treatment plans Patient denies SI/HI/AVH .Behavior improved ,psychiatric tx plans met .Educated pt about after care plan (Exit -care)and copy provided .Returned personal belongings to patient med list given and explained to patient able to verbalize understanding,Vs stable ,no c/o pain . Dr. Lopez called with discharge orders all orders carried out .Patient discharge at 1130 with staff from office .
[2021-11-22] MEDS ORDERED: ZOLPIDEM TARTRATE 10 MG TABLET PO PRN (13:00)
[2021-11-22] MEDS ORDERED: LORAZEPAM 1 MG TABLET FOR AGITATION/ANXIETY PO PRN (13:00)
[2021-11-23] MEDS ORDERED: INVEST MED Kar XT OR PLACEBO 50/20 MG PO SCH (10:00)
[2021-12-14] MEDS ORDERED: ZOLPIDEM TARTRATE 10 MG TABLET PO PRN (13:00)
[2021-12-14] MEDS ORDERED: LORAZEPAM 1 MG TABLET FOR AGITATION/ANXIETY PO PRN (13:00)
[2021-12-25] MEDS ORDERED: ZOLPIDEM TARTRATE 10 MG TABLET PO PRN (13:00)
[2021-12-25] MEDS ORDERED: LORAZEPAM 1 MG TABLET FOR AGITATION/ANXIETY PO PRN (13:00)
== END 2021-11-20 11:30 | disposition home or self-care (01) | DRG 951 ==
LOC: GPS 14:25
PROVIDERS: ADMIT Psychiatry & Neurology Psychiatry; ATTEND Psychiatry & Neurology Psychiatry
DX: Z00.6 Encounter for examination for normal comparison and control in clinical research program (principal); F20.0 Paranoid schizophrenia; F29 Unspecified psychosis not due to a substance or known physiological condition; Z20.822 Contact with and (suspected) exposure to COVID-19; F41.9 Anxiety disorder, unspecified; W34.00XA Accidental discharge from unspecified firearms or gun, initial encounter; Y92.9 Unspecified place or not applicable
CPT/HCPCS: 87081-TC

== ENCOUNTER 2021-11-21 16:52 | Emergency (ER) | payer MEDICARE, OTHER ==
[~2021-11-21] VITALS: Ht 175.3 cm; Wt 90.7 kg
[~2021-11-21 16:52] MED LIST changes: -ALPR0.25; +ARIP10TA57 PO; -BENZ0.5T43; -RISP1TAB7
[2021-11-21 18:25] LABS: BASOPHILS % (AUTO) 0.3 % (0.0-2.0); EOSINOPHILS % (AUTO) 6.5 % (0.0-6.0); HEMATOCRIT 41 % (39-51); HEMOGLOBIN 13.9 g/dL (13.5-17.5); LYMPHOCYTES # (AUTO) 2.3 K/uL (0.8-4.8); LYMPHOCYTES % (AUTO) 31.9 % (20.0-44.0); MEAN CORPUSCULAR HGB CONC 34 g/dl (31.0-36.0); MEAN CORPUSCULAR VOLUME 86 fL (80-96); MONOCYTES # (AUTO) 0.7 K/uL (0.1-1.30); MONOCYTES % (AUTO) 9.5 % (2.0-12.0); NEUTROPHILS # (AUTO) 3.8 K/uL (1.8-8.9); NEUTROPHILS % (AUTO) 51.8 % (43.0-81.0); PLATELET COUNT (AUTO) 267 K/uL (150-450); RED BLOOD CELL COUNT(AUTO) 4.79 MIL/uL (4.5-6.0); WHITE BLOOD COUNT (AUTO) 7.3 K/uL (4.3-11.0)
[2021-11-21 18:26] LABS: BILIRUBIN,URINE NEGATIVE (NEGATIVE); COLOR,URINE YELLOW (YELLOW); LEUKOCYTE ESTERASE ,URINE NEGATIVE (NEGATIVE); NITRITE, URINE NEGATIVE (NEGATIVE); PROTEIN,URINE NEGATIVE (NEGATIVE); UGLUCOSE NEGATIVE (NEGATIVE); UROBILINOGEN,URINE 0.2 EU/dL (0.2)
[2021-11-21 18:49] LABS: CARBON DIOXIDE 28 mmol/L (21-32); CHLORIDE 105 mmol/L (98-107); GLUCOSE 99 mg/dL (74-106); POTASSIUM 4.1 mmol/L (3.5-5.1); SODIUM SERUM 139 mmol/L (136-145); UREA NITROGEN, BLOOD 8 mg/dL (7-18)
[2021-11-21 18:50] LABS: ALANINE AMINOTRANSFERASE 42 U/L (12-78); ALBUMIN 3.7 g/dL (3.4-5.0); ALKALINE PHOSPHATASE 106 U/L (46-116); ASPARTATE AMINOTRANSFERASE 24 U/L (15-37); BILIRUBIN,DIRECT 0.1 mg/dL (0.0-0.2); BILIRUBIN,TOTAL 0.2 mg/dL (0.2-1.0); TOTAL PROTEIN, SERUM 7.6 g/dL (6.4-8.2)
[2021-11-21 19:00] LABS: ACETAMINOPHEN < 0 ug/ml (10-30); ALCOHOL, BLOOD < 3 mg/dL (0-0)
--- NOTE | 2021-11-21 20:07 | NUR ---
BIBS C/O SI WITH PLAN TO RUN INTO TRAFFIC AND AUDITORY HALLUCINATIONS. PT REQUESTING VOLUNTARY ADMISSION TO [facility]. PT ALERT AND ORIENTEDX4 BREATHING EVEN AND UNLABORED AND ALL V/S STABLE.
--- NOTE | 2021-11-21 20:09 | NUR ---
FACESHEET AND CLINICALS FAXED TO [facility].
--- NOTE | 2021-11-21 21:45 | NUR ---
[facility]. PT ACCEPTED BY DR LYMAN. # FOR REPORT [phone], UNIT 1
--- NOTE | 2021-11-21 21:59 | NUR ---
[facility] CALLED FOR TRANSPORT. ETA 90-120 MINUTES.
--- NOTE | 2021-11-21 22:57 | NUR ---
REPORT GIVEN TO SISSY HURTADO
--- NOTE | 2021-11-21 23:20 | NUR ---
[facility] AT BEDSIDE.
[2021-11-21 23:21] VITALS: BP 120/70
--- NOTE | 2021-11-21 23:21 | NUR ---
PATIENT BEING TRANSFERRED TO [facility] VIA AMBULANCE IN STABLE CONDITION.
== END 2021-11-21 23:30 ==
LOC: ER 17:02
DX: R45.851 Suicidal ideations (principal); F12.90 Cannabis use, unspecified, uncomplicated; F20.0 Paranoid schizophrenia; Z20.822 Contact with and (suspected) exposure to COVID-19; Z79.899 Other long term (current) drug therapy
CPT/HCPCS: 36415; 80048-TC; 80076-TC; 85025-TC; C9803; G0480

== ENCOUNTER 2021-12-07 09:32 | Emergency (ER) | payer MEDICARE, OTHER ==
[~2021-12-07] VITALS: Ht 175.3 cm; Wt 97.5 kg
[2021-12-07 10:15] LABS: BASOPHILS # (AUTO) 0.1 K/uL (0.0-0.2); BASOPHILS % (AUTO) 0.8 % (0.0-2.0); EOSINOPHILS % (AUTO) 3.8 % (0.0-6.0); HEMATOCRIT 43 % (39-51); HEMOGLOBIN 14.6 g/dL (13.5-17.5); LYMPHOCYTES # (AUTO) 2.5 K/uL (0.8-4.8); LYMPHOCYTES % (AUTO) 25.8 % (20.0-44.0); MEAN CORPUSCULAR HGB CONC 34 g/dl (31.0-36.0); MEAN CORPUSCULAR VOLUME 85 fL (80-96); MONOCYTES # (AUTO) 0.7 K/uL (0.1-1.30); MONOCYTES % (AUTO) 7.4 % (2.0-12.0); NEUTROPHILS % (AUTO) 62.2 % (43.0-81.0); PLATELET COUNT (AUTO) 259 K/uL (150-450); RED BLOOD CELL COUNT(AUTO) 5.06 MIL/uL (4.5-6.0); WHITE BLOOD COUNT (AUTO) 9.7 K/uL (4.3-11.0)
[2021-12-07 10:36] LABS: BILIRUBIN,URINE NEGATIVE (NEGATIVE); COLOR,URINE YELLOW (YELLOW); LEUKOCYTE ESTERASE ,URINE NEGATIVE (NEGATIVE); NITRITE, URINE NEGATIVE (NEGATIVE); PROTEIN,URINE NEGATIVE (NEGATIVE); UGLUCOSE NEGATIVE (NEGATIVE); UROBILINOGEN,URINE 0.2 EU/dL (0.2)
[2021-12-07 10:43] LABS: CALCIUM, SERUM 9.1 mg/dL (8.5-10.1); CARBON DIOXIDE 28 mmol/L (21-32); CHLORIDE 103 mmol/L (98-107); CREATININE 0.8 mg/dL (0.6-1.3); GLUCOSE 97 mg/dL (74-106); POTASSIUM 3.7 mmol/L (3.5-5.1); SODIUM SERUM 138 mmol/L (136-145); UREA NITROGEN, BLOOD 8 mg/dL (7-18)
[2021-12-07 10:51] LABS: ALANINE AMINOTRANSFERASE 38 U/L (12-78); ALBUMIN 3.6 g/dL (3.4-5.0); ALCOHOL, BLOOD < 3 mg/dL (0-0); ALKALINE PHOSPHATASE 101 U/L (46-116); ASPARTATE AMINOTRANSFERASE 21 U/L (15-37); BILIRUBIN,DIRECT 0.1 mg/dL (0.0-0.2); BILIRUBIN,TOTAL 0.2 mg/dL (0.2-1.0); TOTAL PROTEIN, SERUM 7.5 g/dL (6.4-8.2)
[2021-12-07 11:19] LABS: ACETAMINOPHEN 0 ug/ml (10-30)
[2021-12-07 14:24] VITALS: BP 132/80
== END 2021-12-07 14:27 ==
LOC: ER 09:35
DX: R45.851 Suicidal ideations (principal); F20.9 Schizophrenia, unspecified; Z20.822 Contact with and (suspected) exposure to COVID-19
CPT/HCPCS: 36415; 80048-TC; 80076-TC; 85025-TC; C9803; G0480

== ENCOUNTER 2022-01-11 19:31 | Emergency (ER) | payer MEDICARE, OTHER ==
[~2022-01-11] VITALS: Ht 175.3 cm; Wt 98.9 kg
--- NOTE | 2022-01-11 20:53 | NUR ---
HOME CARE RN AT PT'S BEDSIDE
[2022-01-11 20:54] LABS: BASOPHILS # (AUTO) 0.1 K/uL (0.0-0.2); EOSINOPHILS % (AUTO) 5.9 % (0.0-6.0); HEMATOCRIT 41 % (39-51); HEMOGLOBIN 13.8 g/dL (13.5-17.5); LYMPHOCYTES # (AUTO) 2.7 K/uL (0.8-4.8); LYMPHOCYTES % (AUTO) 31.9 % (20.0-44.0); MEAN CORPUSCULAR HGB CONC 34 g/dl (31.0-36.0); MEAN CORPUSCULAR VOLUME 84 fL (80-96); MONOCYTES # (AUTO) 0.7 K/uL (0.1-1.30); MONOCYTES % (AUTO) 8.3 % (2.0-12.0); NEUTROPHILS # (AUTO) 4.5 K/uL (1.8-8.9); NEUTROPHILS % (AUTO) 52.9 % (43.0-81.0); PLATELET COUNT (AUTO) 214 K/uL (150-450); RED BLOOD CELL COUNT(AUTO) 4.86 MIL/uL (4.5-6.0); WHITE BLOOD COUNT (AUTO) 8.4 K/uL (4.3-11.0)
[2022-01-11 21:00] LABS: BILIRUBIN,URINE NEGATIVE (NEGATIVE); COLOR,URINE YELLOW (YELLOW); LEUKOCYTE ESTERASE ,URINE NEGATIVE (NEGATIVE); NITRITE, URINE NEGATIVE (NEGATIVE); PH,URINE 5.5 (5.0-8.0); PROTEIN,URINE NEGATIVE (NEGATIVE); UGLUCOSE NEGATIVE (NEGATIVE); UROBILINOGEN,URINE 0.2 EU/dL (0.2)
[2022-01-11 21:02] LABS: CALCIUM, SERUM 9.1 mg/dL (8.5-10.1); CARBON DIOXIDE 30 mmol/L (21-32); CHLORIDE 105 mmol/L (98-107); CREATININE 0.9 mg/dL (0.6-1.3); GLUCOSE 97 mg/dL (74-106); POTASSIUM 3.9 mmol/L (3.5-5.1); SODIUM SERUM 141 mmol/L (136-145); UREA NITROGEN, BLOOD 9 mg/dL (7-18)
--- NOTE | 2022-01-11 21:05 | NUR ---
BIBS. TO ER BED 18. AAOX4. NOT IN RESP DISTRESS. AMBULATORY. CAME IN SUICIDAL IDEATION WITH PLAN TO JUMP INTO TRAFFIC. PT IS SEEKING VOLUNTARY ADMISSION. PT DENIES HALLUCINTAIONS. PT IS GOWN, BELONGINGS IN LOCKER AND SITTER WITHIN SIGHT. PROVIDER WAS AT THE BEDSIDE FOR EVAL. URINE AND COVID SWAB COLLECTED AND SENT TO LAB.
[2022-01-11 21:08] LABS: ALANINE AMINOTRANSFERASE 27 U/L (12-78); ALBUMIN 3.7 g/dL (3.4-5.0); ALKALINE PHOSPHATASE 112 U/L (46-116); ASPARTATE AMINOTRANSFERASE 12 U/L (15-37); BILIRUBIN,TOTAL 0.1 mg/dL (0.2-1.0); TOTAL PROTEIN, SERUM 7.5 g/dL (6.4-8.2)
[2022-01-11 21:10] LABS: ALCOHOL, BLOOD < 3 mg/dL (0-0)
--- NOTE | 2022-01-11 21:35 | NUR ---
FAXED CLINICALS TO [facility].
--- NOTE | 2022-01-11 23:27 | NUR ---
[facility]ED [facility] SPOKE TO ART AWAITING REVIEW BY NURSING SUP
--- NOTE | 2022-01-12 03:24 | NUR ---
PT DENIES S/I & H/I. PT AMBULATORY WITH STEADY GAIT AND LEFT ER WITH BELONGINGS IN STABLE CONDITION.
[2022-01-12 03:31] VITALS: BP 131/81
== END 2022-01-12 03:32 | disposition home or self-care (01) ==
LOC: ER 19:44
DX: R45.851 Suicidal ideations (principal); F20.9 Schizophrenia, unspecified; Z20.822 Contact with and (suspected) exposure to COVID-19; Z53.29 Procedure and treatment not carried out because of patient's decision for other reasons
CPT/HCPCS: 36415; 80048-TC; 80076-TC; 85025-TC; C9803; G0480

== ENCOUNTER 2022-01-12 14:42 | Emergency (ER) | payer MEDICARE, OTHER ==
[~2022-01-12] VITALS: Ht 175.3 cm; Wt 98.9 kg
[2022-01-12 15:04] VITALS: BP 138/76
--- NOTE | 2022-01-12 15:04 | NUR ---
PT SELF PRESENTS TO ED. C/O DEPRESSION WITH SUICIDAL IDEATION W/ PLAN TO RUN INTO TRAFFIC. PT IS COOPERATIVE TO STAFF. SEEN IN ED MULTIPLE TIME FOR SAME COMPLAINTS. AWAITING MD DONALDSON.
--- NOTE | 2022-01-12 15:15 | NUR ---
TOSHIA ABRAMS AT BEDSIDE FOR EVAL.
--- NOTE | 2022-01-12 15:56 | NUR ---
FIBER ANALYST AT BEDSIDE FOR BLOOD DRAW.
[2022-01-12 16:08] LABS: BILIRUBIN,URINE NEGATIVE (NEGATIVE); COLOR,URINE YELLOW (YELLOW); LEUKOCYTE ESTERASE ,URINE NEGATIVE (NEGATIVE); NITRITE, URINE NEGATIVE (NEGATIVE); PROTEIN,URINE NEGATIVE (NEGATIVE); UGLUCOSE NEGATIVE (NEGATIVE); UROBILINOGEN,URINE 0.2 EU/dL (0.2)
[2022-01-12 16:11] LABS: BASOPHILS % (AUTO) 0.6 % (0.0-2.0); EOSINOPHILS % (AUTO) 6.4 % (0.0-6.0); HEMATOCRIT 43 % (39-51); HEMOGLOBIN 14.4 g/dL (13.5-17.5); LYMPHOCYTES # (AUTO) 2.3 K/uL (0.8-4.8); MEAN CORPUSCULAR HGB CONC 34 g/dl (31.0-36.0); MEAN CORPUSCULAR VOLUME 84 fL (80-96); MONOCYTES # (AUTO) 0.8 K/uL (0.1-1.30); MONOCYTES % (AUTO) 9.6 % (2.0-12.0); NEUTROPHILS # (AUTO) 4.5 K/uL (1.8-8.9); NEUTROPHILS % (AUTO) 55.4 % (43.0-81.0); PLATELET COUNT (AUTO) 219 K/uL (150-450); RED BLOOD CELL COUNT(AUTO) 5.06 MIL/uL (4.5-6.0); WHITE BLOOD COUNT (AUTO) 8.1 K/uL (4.3-11.0)
[2022-01-12 16:42] LABS: ALANINE AMINOTRANSFERASE 31 U/L (12-78); ALBUMIN 4.1 g/dL (3.4-5.0); ALCOHOL, BLOOD < 3 mg/dL (0-0); ALKALINE PHOSPHATASE 123 U/L (46-116); ASPARTATE AMINOTRANSFERASE 16 U/L (15-37); BILIRUBIN,DIRECT 0.1 mg/dL (0.0-0.2); BILIRUBIN,TOTAL 0.2 mg/dL (0.2-1.0); CARBON DIOXIDE 29 mmol/L (21-32); CHLORIDE 105 mmol/L (98-107); CREATININE 0.9 mg/dL (0.6-1.3); GLUCOSE 82 mg/dL (74-106); SODIUM SERUM 140 mmol/L (136-145); TOTAL PROTEIN, SERUM 8.2 g/dL (6.4-8.2); UREA NITROGEN, BLOOD 12 mg/dL (7-18)
--- NOTE | 2022-01-12 20:07 | NUR ---
PT IS PICKED UP BY MICHA FROM [facility]. PT IS IN STABLE CONDITION FOR TRANSPORT. PT IS AMBULATOPRY ON STEADY GAIT
[2022-01-12 20:17] LABS: ACETAMINOPHEN < 0 ug/ml (10-30)
== END 2022-01-12 20:07 ==
LOC: ER 14:59
DX: R45.851 Suicidal ideations (principal); F20.9 Schizophrenia, unspecified; Z79.899 Other long term (current) drug therapy
CPT/HCPCS: 36415; 80048-TC; 80076-TC; 85025-TC; G0480

== ENCOUNTER 2022-01-15 14:49 | Emergency (ER) | payer MEDICARE, OTHER ==
[~2022-01-15] VITALS: Ht 175.3 cm; Wt 98.4 kg
--- NOTE | 2022-01-15 16:21 | NUR ---
TO ER BED 18, BIBS C/O SI WITH PLAN TO RUN INTO TRAFFIC RE[facility], AAOX3, BREATHING EVEN AND NON LABORED, AWAITING MD ORDERS
--- NOTE | 2022-01-15 17:00 | NUR ---
URINE COLLECTED AND COVID SWAB DONE AND SENT TO LAB
[2022-01-15 17:44] LABS: BASOPHILS % (AUTO) 0.4 % (0.0-2.0); HEMATOCRIT 43 % (39-51); HEMOGLOBIN 14.4 g/dL (13.5-17.5); LYMPHOCYTES # (AUTO) 1.6 K/uL (0.8-4.8); LYMPHOCYTES % (AUTO) 18.2 % (20.0-44.0); MEAN CORPUSCULAR HGB CONC 34 g/dl (31.0-36.0); MEAN CORPUSCULAR VOLUME 84 fL (80-96); MONOCYTES # (AUTO) 0.5 K/uL (0.1-1.30); MONOCYTES % (AUTO) 5.8 % (2.0-12.0); NEUTROPHILS # (AUTO) 6.6 K/uL (1.8-8.9); NEUTROPHILS % (AUTO) 73.6 % (43.0-81.0); PLATELET COUNT (AUTO) 227 K/uL (150-450); RED BLOOD CELL COUNT(AUTO) 5.12 MIL/uL (4.5-6.0)
[2022-01-15 17:48] LABS: BILIRUBIN,URINE NEGATIVE (NEGATIVE); COLOR,URINE YELLOW (YELLOW); LEUKOCYTE ESTERASE ,URINE NEGATIVE (NEGATIVE); NITRITE, URINE NEGATIVE (NEGATIVE); PH,URINE 6.5 (5.0-8.0); PROTEIN,URINE NEGATIVE (NEGATIVE); UGLUCOSE NEGATIVE (NEGATIVE); UROBILINOGEN,URINE 0.2 EU/dL (0.2)
--- NOTE | 2022-01-15 17:59 | NUR ---
PATIENT LEFT [facility]
[2022-01-15 18:09] LABS: CALCIUM, SERUM 9.2 mg/dL (8.5-10.1); CARBON DIOXIDE 24 mmol/L (21-32); CHLORIDE 101 mmol/L (98-107); CREATININE 1.1 mg/dL (0.6-1.3); GLUCOSE 142 mg/dL (74-106); POTASSIUM 3.4 mmol/L (3.5-5.1); SODIUM SERUM 136 mmol/L (136-145); UREA NITROGEN, BLOOD 9 mg/dL (7-18)
[2022-01-15 18:16] LABS: ALANINE AMINOTRANSFERASE 33 U/L (12-78); ALCOHOL, BLOOD < 3 mg/dL (0-0); ALKALINE PHOSPHATASE 125 U/L (46-116); ASPARTATE AMINOTRANSFERASE 19 U/L (15-37); BILIRUBIN,TOTAL 0.1 mg/dL (0.2-1.0); TOTAL PROTEIN, SERUM 8.1 g/dL (6.4-8.2)
[2022-01-15 18:17] LABS: ACETAMINOPHEN < 2 ug/ml (10-30)
[2022-01-15 18:21] VITALS: BP 123/74
== END 2022-01-15 18:22 | disposition left against medical advice (07) ==
LOC: ER 14:54
DX: R45.851 Suicidal ideations (principal); F20.9 Schizophrenia, unspecified; E87.6 Hypokalemia; Z59.00 Homelessness unspecified; Z72.0 Tobacco use; R74.8 Abnormal levels of other serum enzymes; F12.90 Cannabis use, unspecified, uncomplicated; Z20.822 Contact with and (suspected) exposure to COVID-19; Z53.29 Procedure and treatment not carried out because of patient's decision for other reasons
CPT/HCPCS: 36415; 80048-TC; 80076-TC; 85025-TC; C9803; G0480

== ENCOUNTER 2022-01-21 16:01 | Emergency (ER) | payer MEDICARE, OTHER ==
[~2022-01-21] VITALS: Ht 175.3 cm; Wt 97.5 kg
[2022-01-21 18:18] LABS: BASOPHILS # (AUTO) 0.1 K/uL (0.0-0.2); BASOPHILS % (AUTO) 0.8 % (0.0-2.0); EOSINOPHILS % (AUTO) 6.5 % (0.0-6.0); HEMATOCRIT 42 % (39-51); HEMOGLOBIN 13.7 g/dL (13.5-17.5); LYMPHOCYTES # (AUTO) 2.5 K/uL (0.8-4.8); LYMPHOCYTES % (AUTO) 31.2 % (20.0-44.0); MEAN CORPUSCULAR HGB CONC 33 g/dl (31.0-36.0); MEAN CORPUSCULAR VOLUME 85 fL (80-96); MONOCYTES # (AUTO) 0.7 K/uL (0.1-1.30); NEUTROPHILS # (AUTO) 4.2 K/uL (1.8-8.9); NEUTROPHILS % (AUTO) 52.5 % (43.0-81.0); PLATELET COUNT (AUTO) 245 K/uL (150-450); RED BLOOD CELL COUNT(AUTO) 4.87 MIL/uL (4.5-6.0); WHITE BLOOD COUNT (AUTO) 8.1 K/uL (4.3-11.0)
[2022-01-21 18:28] LABS: BILIRUBIN,URINE NEGATIVE (NEGATIVE); COLOR,URINE YELLOW (YELLOW); LEUKOCYTE ESTERASE ,URINE NEGATIVE (NEGATIVE); NITRITE, URINE NEGATIVE (NEGATIVE); PROTEIN,URINE NEGATIVE (NEGATIVE); UGLUCOSE NEGATIVE (NEGATIVE); UROBILINOGEN,URINE 0.2 EU/dL (0.2)
[2022-01-21 18:51] LABS: ALANINE AMINOTRANSFERASE 34 U/L (12-78); ALBUMIN 3.7 g/dL (3.4-5.0); ALCOHOL, BLOOD < 3 mg/dL (0-0); ALKALINE PHOSPHATASE 124 U/L (46-116); ASPARTATE AMINOTRANSFERASE 16 U/L (15-37); BILIRUBIN,TOTAL 0.2 mg/dL (0.2-1.0); CARBON DIOXIDE 28 mmol/L (21-32); CHLORIDE 103 mmol/L (98-107); CREATININE 1.1 mg/dL (0.6-1.3); GLUCOSE 93 mg/dL (74-106); POTASSIUM 3.7 mmol/L (3.5-5.1); SODIUM SERUM 139 mmol/L (136-145); TOTAL PROTEIN, SERUM 7.7 g/dL (6.4-8.2); UREA NITROGEN, BLOOD 19 mg/dL (7-18)
[2022-01-21 18:56] LABS: BACTERIA,URINE None seen /HPF (None Seen); SQUAMOUS EPITHELIAL CELL,UR 0-2 /HPF (None Seen); WBC,URINE 0-2 /HPF (0-3)
--- NOTE | 2022-01-21 19:10 | NUR ---
Awaiting Medical Clearance from Provider Covid swab pending -will fax clinicals to [facility]. Compliant and Cooperative. Dinner served- Ate 100%
[2022-01-21 19:11] LABS: ACETAMINOPHEN < 2 ug/ml (10-30)
[2022-01-21 19:14] LABS: CALCIUM, SERUM 9.3 mg/dL (8.5-10.1)
--- NOTE | 2022-01-21 20:04 | NUR ---
FACESHEET AND CLINICALS FAXED TO [facility].
--- NOTE | 2022-01-22 03:10 | NUR ---
PT ACCEPTED AT [facility] UNDER DR. BURROUGHS / NUMBER FOR REPORT: [id number]
--- NOTE | 2022-01-22 03:24 | NUR ---
[facility] CALLED FOR TRANSPORT. ETA 30 MINUTES.
--- NOTE | 2022-01-22 03:36 | NUR ---
REPORT GIVEN TO IJ AT [facility]
--- NOTE | 2022-01-22 03:47 | NUR ---
[facility] ARRIVED FOR TX TO [facility], PT REFUSED Addendum: 01/22/22 at 0439 by GÉNESIS PT STATES NO LONGER SUICIDAL, HE DOES NOT WISH TO GO TO [facility]. PROVIDED HIM WITH INFORMATION WHERE HE CAN SEEK HELP IF NEEDED AGAIN. PROVIDED HIM WITH FOOD. MADE AWARE
--- NOTE | 2022-01-22 03:50 | NUR ---
PT NO LONGER ENDORSES THOUGHT OF SUICIDAL IDEATION AND DID NOT WISH TO PROCEED WITH TRANSFER TO [facility]. PT DISCHARGED IN STABLE CONDITION.
[2022-01-22 04:45] VITALS: BP 113/68
== END 2022-01-22 04:15 | disposition home or self-care (01) ==
LOC: ER 16:04
DX: R45.851 Suicidal ideations (principal); F20.9 Schizophrenia, unspecified; Z20.822 Contact with and (suspected) exposure to COVID-19; F19.10 Other psychoactive substance abuse, uncomplicated; Z53.29 Procedure and treatment not carried out because of patient's decision for other reasons
CPT/HCPCS: 36415; 80048-TC; 80076-TC; 81001; 85025-TC; C9803; G0480

== ENCOUNTER 2022-01-25 19:47 | Emergency (ER) | payer MEDICARE, OTHER ==
[~2022-01-25] VITALS: Ht 175.3 cm; Wt 97.5 kg
--- NOTE | 2022-01-25 20:00 | NUR ---
PATIENT BIBSELF C/O MED CLEARANCE FOR VOL PSYCH: HEARING VOICES TELLING HIM TO RUN INTO TRAFFIC. PATIENT IS A/O X 4, RR EVEN AND UNLABORED, NO SOB NOTED. PATIENT VSS. WILL CONTINUE TO MONITOR.
[2022-01-25 21:18] LABS: BASOPHILS # (AUTO) 0.1 K/uL (0.0-0.2); BASOPHILS % (AUTO) 0.9 % (0.0-2.0); EOSINOPHILS % (AUTO) 5.6 % (0.0-6.0); HEMATOCRIT 42 % (39-51); HEMOGLOBIN 13.9 g/dL (13.5-17.5); LYMPHOCYTES # (AUTO) 2.4 K/uL (0.8-4.8); LYMPHOCYTES % (AUTO) 25.4 % (20.0-44.0); MEAN CORPUSCULAR HGB CONC 33 g/dl (31.0-36.0); MEAN CORPUSCULAR VOLUME 84 fL (80-96); MONOCYTES # (AUTO) 1.1 K/uL (0.1-1.30); MONOCYTES % (AUTO) 11.5 % (2.0-12.0); NEUTROPHILS # (AUTO) 5.3 K/uL (1.8-8.9); NEUTROPHILS % (AUTO) 56.6 % (43.0-81.0); PLATELET COUNT (AUTO) 261 K/uL (150-450); RED BLOOD CELL COUNT(AUTO) 4.98 MIL/uL (4.5-6.0); WHITE BLOOD COUNT (AUTO) 9.3 K/uL (4.3-11.0)
[2022-01-25 21:50] LABS: ALANINE AMINOTRANSFERASE 29 U/L (12-78); ALBUMIN 3.7 g/dL (3.4-5.0); ALCOHOL, BLOOD < 3 mg/dL (0-0); ALKALINE PHOSPHATASE 119 U/L (46-116); ASPARTATE AMINOTRANSFERASE 17 U/L (15-37); BILIRUBIN,DIRECT 0.1 mg/dL (0.0-0.2); BILIRUBIN,TOTAL 0.2 mg/dL (0.2-1.0); CALCIUM, SERUM 9.1 mg/dL (8.5-10.1); CARBON DIOXIDE 26 mmol/L (21-32); CHLORIDE 103 mmol/L (98-107); GLUCOSE 104 mg/dL (74-106); POTASSIUM 3.7 mmol/L (3.5-5.1); SODIUM SERUM 137 mmol/L (136-145); TOTAL PROTEIN, SERUM 7.7 g/dL (6.4-8.2); UREA NITROGEN, BLOOD 11 mg/dL (7-18)
[2022-01-25 21:52] LABS: BILIRUBIN,URINE NEGATIVE (NEGATIVE); COLOR,URINE YELLOW (YELLOW); LEUKOCYTE ESTERASE ,URINE NEGATIVE (NEGATIVE); NITRITE, URINE NEGATIVE (NEGATIVE); PROTEIN,URINE NEGATIVE (NEGATIVE); UGLUCOSE NEGATIVE (NEGATIVE); UROBILINOGEN,URINE 0.2 EU/dL (0.2)
--- NOTE | 2022-01-25 23:19 | NUR ---
COVID ANTIGEN SWAB COLLECTED AND SENT TO LAB
--- NOTE | 2022-01-26 04:40 | NUR ---
CLINICALS SENT [facility]
--- NOTE | 2022-01-26 06:48 | NUR ---
madi from [facility] pt accepted [facility] info to follow
--- NOTE | 2022-01-26 08:31 | NUR ---
BREAKFAST TRAY PROVIDED, ATE 100%
[2022-01-26 09:45] VITALS: BP 122/68
--- NOTE | 2022-01-26 09:56 | NUR ---
PT ACCEPTED TO [facility] UNDER THE CARE OF DR. LYMAN NUMBER FOR REPORT [phone]
--- NOTE | 2022-01-26 10:05 | NUR ---
PICKED UP BY [facility] IN STABLE CONDITION
== END 2022-01-26 10:30 ==
LOC: ER 19:57
DX: R45.851 Suicidal ideations (principal); F20.9 Schizophrenia, unspecified; F17.200 Nicotine dependence, unspecified, uncomplicated; Z79.899 Other long term (current) drug therapy; Z20.822 Contact with and (suspected) exposure to COVID-19
CPT/HCPCS: 36415; 80048-TC; 80076-TC; 85025-TC; C9803; G0480

== ENCOUNTER 2022-03-12 17:23 | Emergency (ER) | payer MEDICARE, OTHER ==
[~2022-03-12] VITALS: Ht 175.3 cm; Wt 81.6 kg
--- NOTE | 2022-03-12 17:25 | NUR ---
CALLED PT IN WAITING ROOM, NO RESPONSE.
--- NOTE | 2022-03-12 17:40 | NUR ---
PT BIB SELF C/O SI "I WANT TO RUN THRU TRAFFIC" REQUESTING VOLUNTARY PSYCH ADMISSION TO [facility]. PT IS AAOX4, NOT IN RESPIRATORY DISTRESS, V/S STABLE, KEPT RESTED AND COMFORTABLE. WILL CONTINUE TO MONITOR.
--- NOTE | 2022-03-12 17:50 | NUR ---
URINE SPECIMEN COLLECTED AND SENT TO LAB.
[2022-03-12 18:09] LABS: BASOPHILS # (AUTO) 0.1 K/uL (0.0-0.2); BASOPHILS % (AUTO) 0.9 % (0.0-2.0); EOSINOPHILS % (AUTO) 7.8 % (0.0-6.0); HEMATOCRIT 41 % (39-51); HEMOGLOBIN 13.6 g/dL (13.5-17.5); LYMPHOCYTES # (AUTO) 2.4 K/uL (0.8-4.8); LYMPHOCYTES % (AUTO) 29.6 % (20.0-44.0); MEAN CORPUSCULAR HGB CONC 34 g/dl (31.0-36.0); MEAN CORPUSCULAR VOLUME 84 fL (80-96); MONOCYTES # (AUTO) 0.7 K/uL (0.1-1.30); MONOCYTES % (AUTO) 8.7 % (2.0-12.0); NEUTROPHILS # (AUTO) 4.4 K/uL (1.8-8.9); PLATELET COUNT (AUTO) 245 K/uL (150-450); RED BLOOD CELL COUNT(AUTO) 4.85 MIL/uL (4.5-6.0); WHITE BLOOD COUNT (AUTO) 8.2 K/uL (4.3-11.0)
[2022-03-12 18:25] LABS: BILIRUBIN,URINE NEGATIVE (NEGATIVE); COLOR,URINE YELLOW (YELLOW); LEUKOCYTE ESTERASE ,URINE NEGATIVE (NEGATIVE); NITRITE, URINE NEGATIVE (NEGATIVE); PROTEIN,URINE NEGATIVE (NEGATIVE); UGLUCOSE NEGATIVE (NEGATIVE); UROBILINOGEN,URINE 0.2 EU/dL (0.2)
[2022-03-12 18:33] VITALS: BP 113/70
[2022-03-12 19:09] LABS: CARBON DIOXIDE 27 mmol/L (21-32); CHLORIDE 105 mmol/L (98-107); CREATININE 0.9 mg/dL (0.6-1.3); GLUCOSE 116 mg/dL (74-106); POTASSIUM 3.8 mmol/L (3.5-5.1); SODIUM SERUM 139 mmol/L (136-145); UREA NITROGEN, BLOOD 13 mg/dL (7-18)
[2022-03-12 19:15] LABS: ALANINE AMINOTRANSFERASE 34 U/L (12-78); ALBUMIN 3.7 g/dL (3.4-5.0); ALCOHOL, BLOOD < 3 mg/dL (0-0); ALKALINE PHOSPHATASE 117 U/L (46-116); ASPARTATE AMINOTRANSFERASE 23 U/L (15-37); BILIRUBIN,DIRECT 0.1 mg/dL (0.0-0.2); BILIRUBIN,TOTAL 0.2 mg/dL (0.2-1.0); TOTAL PROTEIN, SERUM 7.5 g/dL (6.4-8.2)
[2022-03-12 19:16] LABS: ACETAMINOPHEN < 0 ug/ml (10-30)
--- NOTE | 2022-03-12 19:31 | NUR ---
FACESHEET AND CLINICALS FAXED TO [facility].
[2022-03-12 19:43] LABS: BACTERIA,URINE None seen /HPF (None Seen); MUCUS,URINE Many /LPF (None Seen); RBC,URINE 0-2 /HPF (0-2); SQUAMOUS EPITHELIAL CELL,UR 0-2 /HPF (None Seen); WBC,URINE 0-2 /HPF (0-3)
--- NOTE | 2022-03-12 22:32 | NUR ---
PT GOT ACCEPTED AT [facility] BY DR CONDON. # FOR REPORT: [phone]
--- NOTE | 2022-03-12 22:35 | NUR ---
[facility] ETA: 1 HOUR
--- NOTE | 2022-03-12 22:38 | NUR ---
REPORT GIVEN TO SISSY CH
--- NOTE | 2022-03-12 23:35 | NUR ---
[facility] AT BEDSIDE FOR TRANSPORT.
--- NOTE | 2022-03-12 23:50 | NUR ---
PT TRANSFERRED NO ACUTE DISTRESS NOTED. VSS.
== END 2022-03-13 00:28 ==
LOC: ER 17:24
DX: R45.851 Suicidal ideations (principal); F17.200 Nicotine dependence, unspecified, uncomplicated; Z20.822 Contact with and (suspected) exposure to COVID-19
CPT/HCPCS: 36415; 80048-TC; 80076-TC; 81001; 85025-TC; C9803; G0480

== ENCOUNTER 2022-04-13 19:01 | Emergency (ER) | payer MEDICARE, OTHER ==
[~2022-04-13] VITALS: Ht 172.7 cm; Wt 72.6 kg
--- NOTE | 2022-04-13 21:25 | NUR ---
BIBS C/O SI HEARING VOICES TELLING HIM TO RUN INTO TRAFFIC. PT HAS BEEN MED COMPLIENT WITH [facility] AND DENIES DRUG/ALCOHOL USE. PT AWAKE AND ALERT X4 AMBULATORY WITH STEADY GAIT CHANGED INTO GOWN AND SI PRECAUTIONS IN PLACE.
--- NOTE | 2022-04-13 21:27 | NUR ---
URINE COLLECTED SENT TO LAB
--- NOTE | 2022-04-13 21:27 | NUR ---
JEFFID COLLECTED SENT TO LAB
[2022-04-13 21:56] LABS: BASOPHILS % (AUTO) 0.2 % (0.0-2.0); EOSINOPHILS % (AUTO) 6.5 % (0.0-6.0); HEMATOCRIT 40 % (39-51); HEMOGLOBIN 13.6 g/dL (13.5-17.5); LYMPHOCYTES # (AUTO) 1.5 K/uL (0.8-4.8); LYMPHOCYTES % (AUTO) 21.4 % (20.0-44.0); MEAN CORPUSCULAR HGB CONC 34 g/dl (31.0-36.0); MEAN CORPUSCULAR VOLUME 82 fL (80-96); MONOCYTES # (AUTO) 0.9 K/uL (0.1-1.30); MONOCYTES % (AUTO) 13.5 % (2.0-12.0); NEUTROPHILS # (AUTO) 4.1 K/uL (1.8-8.9); NEUTROPHILS % (AUTO) 58.4 % (43.0-81.0); PLATELET COUNT (AUTO) 216 K/uL (150-450); RED BLOOD CELL COUNT(AUTO) 4.86 MIL/uL (4.5-6.0)
[2022-04-13 22:13] LABS: CALCIUM, SERUM 8.9 mg/dL (8.5-10.1); CARBON DIOXIDE 30 mmol/L (21-32); CHLORIDE 105 mmol/L (98-107); CREATININE 0.9 mg/dL (0.6-1.3); GLUCOSE 96 mg/dL (74-106); POTASSIUM 3.7 mmol/L (3.5-5.1); SODIUM SERUM 141 mmol/L (136-145); UREA NITROGEN, BLOOD 8 mg/dL (7-18)
[2022-04-13 22:20] LABS: ACETAMINOPHEN < 2 ug/ml (10-30); ALANINE AMINOTRANSFERASE 25 U/L (12-78); ALBUMIN 3.8 g/dL (3.4-5.0); ALCOHOL, BLOOD < 3 mg/dL (0-0); ALKALINE PHOSPHATASE 134 U/L (46-116); ASPARTATE AMINOTRANSFERASE 17 U/L (15-37); BILIRUBIN,TOTAL 0.2 mg/dL (0.2-1.0); TOTAL PROTEIN, SERUM 7.7 g/dL (6.4-8.2)
[2022-04-13 22:30] LABS: BILIRUBIN,URINE SMALL (NEGATIVE); COLOR,URINE YELLOW (YELLOW); LEUKOCYTE ESTERASE ,URINE NEGATIVE (NEGATIVE); NITRITE, URINE NEGATIVE (NEGATIVE); PROTEIN,URINE NEGATIVE (NEGATIVE); UGLUCOSE NEGATIVE (NEGATIVE)
[2022-04-13 22:42] LABS: RBC,URINE 0-2 /HPF (0-2); WBC,URINE NONE SEEN /HPF (0-3)
[2022-04-13 22:43] LABS: BACTERIA,URINE Rare /HPF (None Seen); MUCUS,URINE Moderate /LPF (None Seen); SQUAMOUS EPITHELIAL CELL,UR Few /HPF (None Seen)
[2022-04-13] MEDS ORDERED: HYDROCORTISONE 1% CREAM 30 GM TUBE TP ONE (23:30)
--- NOTE | 2022-04-13 23:34 | NUR ---
FACESHEET AND CLINICALS FAXED TO [facility].
[2022-04-14] MEDS ORDERED: HYDROCORTISONE 1% CREAM 28.35 GM TUBE TP ONE (00:44)
--- NOTE | 2022-04-14 00:52 | NUR ---
PT ACCEPTED TO [facility] UNDER DR ROMERO RN REPORT NUMBER IS [phone].
--- NOTE | 2022-04-14 00:57 | NUR ---
PT WILL BE TRANSPORTED TO [facility]IA [facility] IN 60 TO 70 MINS.
--- NOTE | 2022-04-14 01:19 | NUR ---
REPORT GIVEN TO MILAD
--- NOTE | 2022-04-14 01:43 | NUR ---
PT PICKED UP BY [facility] UNIT 240 IN STABLE CONDITION
[2022-04-14 04:20] VITALS: BP 145/85
== END 2022-04-14 01:45 ==
LOC: ER 19:04
DX: R45.851 Suicidal ideations (principal); F20.9 Schizophrenia, unspecified; L30.9 Dermatitis, unspecified; Z79.899 Other long term (current) drug therapy; Z72.0 Tobacco use; Z20.822 Contact with and (suspected) exposure to COVID-19; R03.0 Elevated blood-pressure reading, without diagnosis of hypertension
CPT/HCPCS: 36415; 80048-TC; 80076-TC; 81001; 85025-TC; C9803; G0480

== ENCOUNTER 2022-04-27 13:00 | Emergency (ER) | payer MEDICARE, OTHER ==
[~2022-04-27] VITALS: Ht 175.3 cm; Wt 90.7 kg
[2022-04-27 15:37] VITALS: BP 118/64
--- NOTE | 2022-04-27 15:37 | NUR ---
TO ER BED 18, BIBS C/O SI WITH PLAN TO RUN INTO TRAFFIC WANTS VOL TO [facility], BREATHING EVEN AND NON LABORED, CONNECTED TO MONITOR, AWAITING MD DONALDSON
--- NOTE | 2022-04-27 16:33 | NUR ---
URINE COLLECTED AND COVID SWAB DONE AND SENT TO LAB
[2022-04-27 16:47] LABS: BILIRUBIN,URINE SMALL (NEGATIVE); COLOR,URINE YELLOW (YELLOW); LEUKOCYTE ESTERASE ,URINE NEGATIVE (NEGATIVE); NITRITE, URINE NEGATIVE (NEGATIVE); PH,URINE 5.5 (5.0-8.0); PROTEIN,URINE NEGATIVE (NEGATIVE); UGLUCOSE NEGATIVE (NEGATIVE); UROBILINOGEN,URINE 0.2 EU/dL (0.2)
[2022-04-27 17:16] LABS: BASOPHILS % (AUTO) 0.4 % (0.0-2.0); EOSINOPHILS % (AUTO) 4.5 % (0.0-6.0); HEMATOCRIT 42 % (39-51); HEMOGLOBIN 14.1 g/dL (13.5-17.5); LYMPHOCYTES # (AUTO) 2.4 K/uL (0.8-4.8); LYMPHOCYTES % (AUTO) 27.9 % (20.0-44.0); MEAN CORPUSCULAR HGB CONC 34 g/dl (31.0-36.0); MEAN CORPUSCULAR VOLUME 83 fL (80-96); MONOCYTES % (AUTO) 11.4 % (2.0-12.0); NEUTROPHILS # (AUTO) 4.7 K/uL (1.8-8.9); NEUTROPHILS % (AUTO) 55.8 % (43.0-81.0); PLATELET COUNT (AUTO) 266 K/uL (150-450); RED BLOOD CELL COUNT(AUTO) 5.06 MIL/uL (4.5-6.0); WHITE BLOOD COUNT (AUTO) 8.5 K/uL (4.3-11.0)
[2022-04-27 17:34] LABS: ALANINE AMINOTRANSFERASE 32 U/L (12-78); ALBUMIN 4.1 g/dL (3.4-5.0); ALCOHOL, BLOOD < 3 mg/dL (0-0); ALKALINE PHOSPHATASE 140 U/L (46-116); ASPARTATE AMINOTRANSFERASE 21 U/L (15-37); BILIRUBIN,DIRECT 0.1 mg/dL (0.0-0.2); BILIRUBIN,TOTAL 0.3 mg/dL (0.2-1.0); CALCIUM, SERUM 9.4 mg/dL (8.5-10.1); CARBON DIOXIDE 31 mmol/L (21-32); CHLORIDE 106 mmol/L (98-107); GLUCOSE 92 mg/dL (74-106); POTASSIUM 4.2 mmol/L (3.5-5.1); SODIUM SERUM 143 mmol/L (136-145); TOTAL PROTEIN, SERUM 8.5 g/dL (6.4-8.2); UREA NITROGEN, BLOOD 8 mg/dL (7-18)
[2022-04-27 17:40] LABS: ACETAMINOPHEN < 10 ug/ml (10-30)
--- NOTE | 2022-04-27 19:06 | NUR ---
FAXED CLINICALS TO [facility]
--- NOTE | 2022-04-27 21:52 | NUR ---
PT ACCEPTED TO [facility] BY DR ROMERO. # FOR REPORT [phone] UNIT 1.
--- NOTE | 2022-04-27 22:45 | NUR ---
[facility] CALLED FOR BLS TO [facility] ETA - 60 MIN
--- NOTE | 2022-04-27 22:46 | NUR ---
REPORT GIVEN TO JILLIAN SHEEHAN FOR CONTINUATION OF CARE.
--- NOTE | 2022-04-27 23:23 | NUR ---
[facility] AT BEDSIDE FOR TRANSPORT TO [facility].
== END 2022-04-27 23:39 ==
LOC: ER 13:02
DX: R45.851 Suicidal ideations (principal); F20.9 Schizophrenia, unspecified; Z20.822 Contact with and (suspected) exposure to COVID-19
CPT/HCPCS: 36415; 80048-TC; 80076-TC; 85025-TC; C9803; G0480

== ENCOUNTER 2022-05-06 06:18 | Emergency (ER) | payer MEDICARE, OTHER ==
[~2022-05-06] VITALS: Ht 175.3 cm; Wt 100.2 kg
--- NOTE | 2022-05-06 06:33 | NUR ---
GARY REQUESTING [facility] ADMISSION. C/O SI WITH NO PLAN. +HEARING VOICES. -HI. PLACED IN BED, BELONINGS PLACED IN LOCKER.
--- NOTE | 2022-05-06 06:34 | NUR ---
[facility] COLLECTED, SENT
[2022-05-06] MEDS: ARIPIPRAZOLE 5 MG TABLET PO ONE (07:17)
[2022-05-06 07:18] LABS: BASOPHILS # (AUTO) 0.1 K/uL (0.0-0.2); BASOPHILS % (AUTO) 0.9 % (0.0-2.0); BILIRUBIN,URINE NEGATIVE (NEGATIVE); COLOR,URINE YELLOW (YELLOW); EOSINOPHILS % (AUTO) 10.4 % (0.0-6.0); HEMATOCRIT 41 % (39-51); HEMOGLOBIN 13.7 g/dL (13.5-17.5); LEUKOCYTE ESTERASE ,URINE NEGATIVE (NEGATIVE); LYMPHOCYTES # (AUTO) 1.8 K/uL (0.8-4.8); LYMPHOCYTES % (AUTO) 26.1 % (20.0-44.0); MEAN CORPUSCULAR HGB CONC 34 g/dl (31.0-36.0); MEAN CORPUSCULAR VOLUME 82 fL (80-96); MONOCYTES # (AUTO) 0.8 K/uL (0.1-1.30); MONOCYTES % (AUTO) 11.6 % (2.0-12.0); NEUTROPHILS # (AUTO) 3.5 K/uL (1.8-8.9); NITRITE, URINE NEGATIVE (NEGATIVE); PH,URINE 5.5 (5.0-8.0); PLATELET COUNT (AUTO) 227 K/uL (150-450); PROTEIN,URINE NEGATIVE (NEGATIVE); RED BLOOD CELL COUNT(AUTO) 4.94 MIL/uL (4.5-6.0); UGLUCOSE NEGATIVE (NEGATIVE); UROBILINOGEN,URINE 0.2 EU/dL (0.2); WHITE BLOOD COUNT (AUTO) 6.8 K/uL (4.3-11.0)
[2022-05-06 08:11] LABS: ALANINE AMINOTRANSFERASE 28 U/L (12-78); ALBUMIN 3.6 g/dL (3.4-5.0); ALKALINE PHOSPHATASE 120 U/L (46-116); ASPARTATE AMINOTRANSFERASE 15 U/L (15-37); BILIRUBIN,DIRECT 0.1 mg/dL (0.0-0.2); BILIRUBIN,TOTAL 0.2 mg/dL (0.2-1.0); CALCIUM, SERUM 8.9 mg/dL (8.5-10.1); CARBON DIOXIDE 25 mmol/L (21-32); CHLORIDE 107 mmol/L (98-107); CREATININE 0.8 mg/dL (0.6-1.3); GLUCOSE 112 mg/dL (74-106); POTASSIUM 3.9 mmol/L (3.5-5.1); SODIUM SERUM 141 mmol/L (136-145); TOTAL PROTEIN, SERUM 7.7 g/dL (6.4-8.2); UREA NITROGEN, BLOOD 8 mg/dL (7-18)
[2022-05-06 08:17] LABS: ACETAMINOPHEN < 10 ug/ml (10-30); ALCOHOL, BLOOD < 3 mg/dL (0-0)
--- NOTE | 2022-05-06 08:40 | NUR ---
BREAKFAST PROVIDED TO PTMari AMES WELL.
[2022-05-06 10:06] VITALS: BP 133/84
--- NOTE | 2022-05-06 10:35 | NUR ---
COVID ANTIGEN SWAB DONE AND SENT TO THE LAB
--- NOTE | 2022-05-06 12:37 | NUR ---
FAXED COVID RESULT TO [facility].
--- NOTE | 2022-05-06 13:05 | NUR ---
SPOKE WITH [facility]. PATIENT ACCEPTED TO [facility] UNDER THE CARE OF DR. RENO (PSYCH) DR. DOBSON (MEDICAL). NUMBER TO GIVE REPORT [phone].
--- NOTE | 2022-05-06 13:08 | NUR ---
[facility] CALLED FOR TRANSPORT ETA 1430 PER JESS
--- NOTE | 2022-05-06 13:47 | NUR ---
REPORT GIVEN TO NURSE FORD FROM [facility].
--- NOTE | 2022-05-06 15:10 | NUR ---
report given to ambulance staff
--- NOTE | 2022-05-06 15:17 | NUR ---
The patient is discharged to [facility] in stable condition and via arranged transpo.
== END 2022-05-06 15:23 ==
LOC: ER 06:27
DX: F20.9 Schizophrenia, unspecified (principal); R45.851 Suicidal ideations; Z20.822 Contact with and (suspected) exposure to COVID-19
CPT/HCPCS: 36415; 80048-TC; 80076-TC; 85025-TC; C9803; G0480

== ENCOUNTER 2022-05-09 23:34 | Emergency (ER) | payer MEDICARE, OTHER ==
[~2022-05-09] VITALS: Ht 175.3 cm; Wt 90.7 kg
[2022-05-10 03:23] VITALS: BP 114/70
--- NOTE | 2022-05-10 03:25 | NUR ---
BIBS FOR S/I WITH PLAN TO "RUN INTO TRAFFIC" SEEKING VOLUNTARY ADMISSION TO [facility]. ALL BELONGINGS TAKEN AND PLACED IN LOCKER. PATIENT ALERT AND ORIENTED X3. AMBULATORY WITH NON LABORED BREATHING IN BED 18 AWAITING MD DONALDSON.
--- NOTE | 2022-05-10 03:26 | NUR ---
URINE COLLECTED AND SENT TO LAB
[2022-05-10 03:54] LABS: BASOPHILS % (AUTO) 0.5 % (0.0-2.0); EOSINOPHILS % (AUTO) 9.3 % (0.0-6.0); HEMATOCRIT 42 % (39-51); HEMOGLOBIN 14.1 g/dL (13.5-17.5); LYMPHOCYTES % (AUTO) 32.7 % (20.0-44.0); MEAN CORPUSCULAR HGB CONC 33 g/dl (31.0-36.0); MEAN CORPUSCULAR VOLUME 83 fL (80-96); MONOCYTES # (AUTO) 0.6 K/uL (0.1-1.30); MONOCYTES % (AUTO) 10.3 % (2.0-12.0); NEUTROPHILS # (AUTO) 2.8 K/uL (1.8-8.9); NEUTROPHILS % (AUTO) 47.2 % (43.0-81.0); PLATELET COUNT (AUTO) 222 K/uL (150-450); RED BLOOD CELL COUNT(AUTO) 5.09 MIL/uL (4.5-6.0)
[2022-05-10 03:56] LABS: BILIRUBIN,URINE NEGATIVE (NEGATIVE); COLOR,URINE YELLOW (YELLOW); LEUKOCYTE ESTERASE ,URINE NEGATIVE (NEGATIVE); NITRITE, URINE NEGATIVE (NEGATIVE); PROTEIN,URINE NEGATIVE (NEGATIVE); UGLUCOSE NEGATIVE (NEGATIVE); UROBILINOGEN,URINE 0.2 EU/dL (0.2)
[2022-05-10 04:10] LABS: CALCIUM, SERUM 9.3 mg/dL (8.5-10.1); CARBON DIOXIDE 31 mmol/L (21-32); CHLORIDE 103 mmol/L (98-107); GLUCOSE 101 mg/dL (74-106); POTASSIUM 4.2 mmol/L (3.5-5.1); SODIUM SERUM 141 mmol/L (136-145); UREA NITROGEN, BLOOD 8 mg/dL (7-18)
[2022-05-10 04:13] LABS: ALANINE AMINOTRANSFERASE 27 U/L (12-78); ALBUMIN 3.9 g/dL (3.4-5.0); ALCOHOL, BLOOD < 3 mg/dL (0-0); ALKALINE PHOSPHATASE 127 U/L (46-116); ASPARTATE AMINOTRANSFERASE 16 U/L (15-37); BILIRUBIN,DIRECT 0.1 mg/dL (0.0-0.2); BILIRUBIN,TOTAL 0.3 mg/dL (0.2-1.0); TOTAL PROTEIN, SERUM 8.1 g/dL (6.4-8.2)
[2022-05-10 04:14] LABS: ACETAMINOPHEN 0 ug/ml (10-30)
--- NOTE | 2022-05-10 04:19 | NUR ---
COVID SWAB DONE AND SENT TO LAB
--- NOTE | 2022-05-10 04:55 | NUR ---
FACESHEET AND CLINICALS FAXED TO [facility].
--- NOTE | 2022-05-10 08:26 | NUR ---
NO acute changes. Re-evaluated by MD Knight. For discharge. Refusing homeless placement at this time and opt to go back to previous living condition. Patient discharged to home in stable condition. Written and verbal after care instructions given. Patient verbalizes understanding of instruction.
== END 2022-05-10 08:36 | disposition home or self-care (01) ==
LOC: ER 23:37
DX: R45.851 Suicidal ideations (principal); F25.1 Schizoaffective disorder, depressive type; F19.10 Other psychoactive substance abuse, uncomplicated; F13.10 Sedative, hypnotic or anxiolytic abuse, uncomplicated; F14.10 Cocaine abuse, uncomplicated; F16.10 Hallucinogen abuse, uncomplicated; F12.10 Cannabis abuse, uncomplicated; Z20.822 Contact with and (suspected) exposure to COVID-19
CPT/HCPCS: 36415; 80048-TC; 80076-TC; 85025-TC; C9803; G0480

== ENCOUNTER 2022-05-18 18:39 | Emergency (ER) | payer MEDICARE, OTHER ==
--- NOTE | 2022-05-18 19:01 | NUR ---
CALLED TO TRIAGE,NO ANSWER
--- NOTE | 2022-05-18 21:11 | NUR ---
LEFT BEFORE TRIAGE
== END 2022-05-18 21:12 | disposition left against medical advice (07) ==
LOC: ER 18:46
DX: Z53.21 Procedure and treatment not carried out due to patient leaving prior to being seen by health care provider (principal)

== ENCOUNTER 2022-06-14 14:57 | Emergency (ER) | payer OTHER ==
--- NOTE | 2022-06-14 15:45 | NUR ---
CALLED IN ED WAITING ROOM. NO RESPONSE
--- NOTE | 2022-06-14 16:19 | NUR ---
CALLED IN ED WAITING ROOM. NO RESPONSE, PT LEFT, NOT TRIAGED.
== END 2022-06-14 16:21 | disposition left against medical advice (07) ==
LOC: ER 15:06 → MERGE 15:06 → ER 16:21
DX: Z53.21 Procedure and treatment not carried out due to patient leaving prior to being seen by health care provider (principal)

== ENCOUNTER 2022-06-15 06:37 | Emergency (ER) | payer OTHER ==
[~2022-06-15] VITALS: Ht 175.3 cm; Wt 97.5 kg
[2022-06-15 08:00] VITALS: BP 128/77
[2022-06-15 08:00] LABS: BASOPHILS # (AUTO) 0.1 K/uL (0.0-0.2); BASOPHILS % (AUTO) 0.7 % (0.0-2.0); EOSINOPHILS % (AUTO) 2.7 % (0.0-6.0); HEMATOCRIT 41 % (39-51); HEMOGLOBIN 14.1 g/dL (13.5-17.5); LYMPHOCYTES % (AUTO) 24.3 % (20.0-44.0); MEAN CORPUSCULAR HGB CONC 34 g/dl (31.0-36.0); MEAN CORPUSCULAR VOLUME 82 fL (80-96); MONOCYTES # (AUTO) 0.6 K/uL (0.1-1.30); MONOCYTES % (AUTO) 7.4 % (2.0-12.0); NEUTROPHILS # (AUTO) 5.2 K/uL (1.8-8.9); NEUTROPHILS % (AUTO) 64.9 % (43.0-81.0); PLATELET COUNT (AUTO) 256 K/uL (150-450); RED BLOOD CELL COUNT(AUTO) 5.06 MIL/uL (4.5-6.0); WHITE BLOOD COUNT (AUTO) 8.1 K/uL (4.3-11.0)
[2022-06-15 08:22] LABS: ALANINE AMINOTRANSFERASE 39 U/L (12-78); ALCOHOL, BLOOD < 3 mg/dL (0-0); ALKALINE PHOSPHATASE 118 U/L (46-116); ASPARTATE AMINOTRANSFERASE 21 U/L (15-37); BILIRUBIN,DIRECT 0.1 mg/dL (0.0-0.2); BILIRUBIN,TOTAL 0.3 mg/dL (0.2-1.0); CARBON DIOXIDE 29 mmol/L (21-32); CHLORIDE 105 mmol/L (98-107); GLUCOSE 124 mg/dL (74-106); POTASSIUM 3.9 mmol/L (3.5-5.1); SODIUM SERUM 138 mmol/L (136-145); UREA NITROGEN, BLOOD 9 mg/dL (7-18)
[2022-06-15 08:24] LABS: ACETAMINOPHEN < 10 ug/ml (10-30)
--- NOTE | 2022-06-15 08:51 | NUR ---
patient verbalized "i am not suicidal anymore", MD notified and aware.
--- NOTE | 2022-06-15 08:52 | NUR ---
Patient given written and verbal discharge instructions. Patient verbalizes understanding of instructions. Patient is ambulatory with steady gait. Refuses offer of fdc placement. Patient given list of available shelters in surrounding area.
--- NOTE | 2022-06-15 09:37 | NUR ---
FAXED CLINICALS TO [facility].
--- NOTE | 2022-06-15 11:33 | NUR ---
ACCEPTED TO [facility] UNDER DR. ROMERO CALL [phone] FOR REPORT. WILL SEND GEODUCK DIVER [phone]
--- NOTE | 2022-06-15 12:45 | NUR ---
PICKED UP BY [facility]. STABLE CONDITION.
== END 2022-06-15 12:45 ==
LOC: ER 06:45
DX: R45.851 Suicidal ideations (principal); F20.9 Schizophrenia, unspecified; Z91.14 Patient's other noncompliance with medication regimen; Z59.00 Homelessness unspecified
CPT/HCPCS: 99285; 85025; 80048; 80076; 36415; 87426; 80143; 80320; 80307; C9803; G0480

== ENCOUNTER 2022-06-20 12:06 | Emergency (ER) | payer OTHER ==
[~2022-06-20] VITALS: Ht 175.3 cm; Wt 97.5 kg
--- NOTE | 2022-06-20 12:29 | NUR ---
PT SELF PRESENT TO ED C/O HEARING VOICES AND IS FEELING SUICIDAL W/ PLAN TO RUN INTO TRAFFIC, PT DENIES HI. PT COOPERATIVE TO STAFF, MMULTIPLE ED VISITS FOR SAME COMPLAINTS. VSS. AWAITING MD DONALDSON
--- NOTE | 2022-06-20 12:51 | NUR ---
DR NORWOOD AT BEDSIDE FOR EVAL.
[2022-06-20 13:09] LABS: BILIRUBIN,URINE NEGATIVE (NEGATIVE); COLOR,URINE YELLOW (YELLOW); LEUKOCYTE ESTERASE ,URINE NEGATIVE (NEGATIVE); NITRITE, URINE NEGATIVE (NEGATIVE); PROTEIN,URINE NEGATIVE (NEGATIVE); UGLUCOSE NEGATIVE (NEGATIVE); UROBILINOGEN,URINE 0.2 EU/dL (0.2)
--- NOTE | 2022-06-20 13:20 | NUR ---
OUTSIDE SALES ACCOUNT EXECUTIVE AT BEDSIDE FOR BLOOD DRAW.
[2022-06-20 13:30] LABS: BASOPHILS % (AUTO) 0.7 % (0.0-2.0); EOSINOPHILS % (AUTO) 8.3 % (0.0-6.0); HEMATOCRIT 41 % (39-51); HEMOGLOBIN 13.7 g/dL (13.5-17.5); LYMPHOCYTES # (AUTO) 1.8 K/uL (0.8-4.8); LYMPHOCYTES % (AUTO) 26.4 % (20.0-44.0); MEAN CORPUSCULAR HGB CONC 33 g/dl (31.0-36.0); MEAN CORPUSCULAR VOLUME 83 fL (80-96); MONOCYTES # (AUTO) 0.4 K/uL (0.1-1.30); MONOCYTES % (AUTO) 5.5 % (2.0-12.0); NEUTROPHILS % (AUTO) 59.1 % (43.0-81.0); PLATELET COUNT (AUTO) 227 K/uL (150-450); RED BLOOD CELL COUNT(AUTO) 4.96 MIL/uL (4.5-6.0); WHITE BLOOD COUNT (AUTO) 6.7 K/uL (4.3-11.0)
[2022-06-20 13:55] LABS: CALCIUM, SERUM 8.9 mg/dL (8.5-10.1); CARBON DIOXIDE 27 mmol/L (21-32); CHLORIDE 105 mmol/L (98-107); GLUCOSE 111 mg/dL (74-106); POTASSIUM 3.6 mmol/L (3.5-5.1); SODIUM SERUM 140 mmol/L (136-145); UREA NITROGEN, BLOOD 9 mg/dL (7-18)
[2022-06-20 14:09] LABS: ALANINE AMINOTRANSFERASE 37 U/L (12-78); ALBUMIN 3.6 g/dL (3.4-5.0); ALKALINE PHOSPHATASE 121 U/L (46-116); ASPARTATE AMINOTRANSFERASE 16 U/L (15-37); BILIRUBIN,DIRECT 0.1 mg/dL (0.0-0.2); BILIRUBIN,TOTAL 0.2 mg/dL (0.2-1.0); TOTAL PROTEIN, SERUM 7.6 g/dL (6.4-8.2)
[2022-06-20 14:10] LABS: ACETAMINOPHEN 0 ug/ml (10-30); ALCOHOL, BLOOD < 3 mg/dL (0-0)
--- NOTE | 2022-06-20 14:15 | NUR ---
SS consult requested for suicidal ideation. Pt. is a 32-year-old male who was admitted to [facility] on 06/20/2022 due to suicidal ideation. Upon SS consult, pt. is alert and oriented x4. Pt. presents with a depressed mood and congruent affect. Pt. presents with low speech and provides appropriate eye contact. Pt. appears well-kempt and provides appropriate eye contact. Pt stated he came to the ED due to auditory and visual hallucinations. Pt. stated he is hearing voices telling him to run into traffic. Pt. stated he is having visual hallucinations and seeing swings. Pt. stated that the voices are telling him to hurt himself. Pt. denied homicidal ideation. Pt. stated he has a diagnosis of schizophrenia. valve assembler offered the pt. mental health resources. Pt. stated that he is homeless but stays with his friends. Pt. could not provide the address to his friend's house. Pt. stated that he has been homeless for five years. valve assembler offered the pt. homeless resources. Pt. signed the homeless waiver, and it was placed in the chart. Plan: Pt. stated that [facility] [address] [place] [address]. Year-round shelters: [facility] [address] [place] [address] ; [facility] [address] [place] [address]; [facility] [id number] [facility]. [facility] [address] Hygiene: [facility]: [address] [place] ; [facility] [address] [facility] ; [facility] [address] . Food Resources: [facility] at [facility]- [address] [place]; [facility] ([facility]) [address] [place]; [facility] [address]; [facility] [address]. Mental Health resources provided: [facility] [address] [place], [place] [address] ; [facility], [facility]. [address] [facility] [address], [place], [place] [id number] ; [facility] [address] [facility] [place] [address] ; [facility], [place] [id number] Healthcare Clinics: [facility] [address] [facility] [address], [address] [place]. [place] ; [facility] [address] [facility] [address] [place] [address]; [facility] [address] [facility] [address] [phone]
--- NOTE | 2022-06-20 16:57 | NUR ---
FAXED CLINICALS TO [facility].
--- NOTE | 2022-06-20 17:58 | NUR ---
CALLED [facility] PER ART WAITING FEEDBACK.
--- NOTE | 2022-06-20 19:25 | NUR ---
PT WAS INFORMED OF DELAY IN ADMISSION. STATES HE FEELS FINE AT THIS TIME AND IS NOT FEELING SUICIDAL AND WOULD LIKE TO BE DISCHARGED.
[2022-06-21 10:03] VITALS: BP 132/80
== END 2022-06-20 19:25 | disposition left against medical advice (07) ==
LOC: ER 12:12
DX: R45.851 Suicidal ideations (principal); F20.9 Schizophrenia, unspecified; Z20.822 Contact with and (suspected) exposure to COVID-19
CPT/HCPCS: 99283; 85025; 80048; 80076; 81003; 36415; 87426; 80143; 80320; 80307; C9803; G0480

== ENCOUNTER 2022-07-19 11:13 | Inpatient (IN) | payer OTHER ==
[~2022-07-19] VITALS: Ht 175.3 cm; Wt 101.6 kg
--- NOTE | 2022-07-19 14:45 | NUR ---
RN-ADMISSION NOTES ADMITTED 32 Y.O MALE CLINICAL TRIAL PATIENT FOR DR. MAIN. PATIENT WAS BROUGHT IN BY ROXANA ( DR. MAIN STAFF) A/O X4 ,CALM,NO ACUTE DISTRESS NOTED. PATIENT SIGN ALL ADMISSION PAPERS. PATIENT DENIES SI/HI ,NO VISUAL/AUDITORY HALLUCINATION NOTED AT THIS TIME. PATIENT WAS ORIENTED IN THE UNIT AND UNIT POLICIES. TRIMMER AND BORER MACHINE OPERATOR CALLED DR. MAIN OFFICE AND SPOKE WITH CLAIRE (DESK STAFF) AND MADE AWARE THAT PATIENT IS IN THE UNIT. WILL CONT. MONITORING FOR SAFETY AND BEHAVIOR.
[2022-07-19] MEDS ORDERED: MAG HYDROX/AL HYDROX/SIMETH 30 ML UDC PO PRN (15:00)
[2022-07-19] MEDS ORDERED: MAGNESIUM HYDROXIDE 30 ML UDC PO PRN (15:00)
[2022-07-19] MEDS ORDERED: IBUPROFEN 200 MG TABLET PO PRN (15:00)
[2022-07-19] MEDS ORDERED: LORAZEPAM 1 MG TABLET FOR AGITATION PO PRN (15:00)
[2022-07-19] MEDS ORDERED: ACETAMINOPHEN ES 500 MG TABLET PO PRN (15:00)
[2022-07-19 16:00] VITALS: BP 126/99
--- NOTE | 2022-07-19 19:00 | NUR ---
RN-NOTES PATIENT VISIBLE IN THE UNIT A/O X4,CALM,GUARDED,NO ACUTE DISTRESS NOTED.AMBULATORY STEADY GAIT. ABLE TO MAKE NEEDS KNOWN TO THE STAFF. PATIENT OFF THE UNIT SEVERAL TIMES FOR SMOKING. WILL CONT. MONITORING FOR SAFETY AND BEHAVIOR. WILL ENDORSE TO INCOMING SHIFT FOR CONTINUITY OF CARE.
--- NOTE | 2022-07-19 19:30 | NUR ---
GPS RN NOTE, RECEIVED PATIENT AWAKE AND IN BED, NO S/S OR COMPLAINTS OF PAIN AT THIS TIME. PATIENT IS DISPLAYING NO S/S OF APPARENT DISTRESS AT THIS TIME. PATIENT BREATHING IS UNLABORED WITH EQUAL RISE AND FALL OF THE CHEST. PATIENT IS ALERT AND ORIENTED X 3 ON ROOM AIR WITH A SPO2 98%. PATIENT IS COMPLIANT WITH MEDICATIONS, CALM, AND COOPERATIVE. PATIENT DENIES SUICIDAL AND HOMICIDAL IDEATIONS AT THIS TIME. PATIENT ASSISTED WITH TURNING AND REPOSITIONING Q2HR AND PRN FOR COMFORT AND CIRCULATION. PATIENT HAS NO NEEDS AT THIS TIME. PATIENT EDUCATED ON THE USE OF THE CALL FELIX. PATIENT BED SIDE RAILS UP X 2 FOR SAFETY. PATIENT BED IS LOCKED, LOW, WITH BED ALARM ON. WILL CONTINUE TO MONITOR THIS PATIENT Q15 MINUTES WITH THE HELP OF STAFF TO MAINTAIN SAFETY.
[2022-07-19 20:00] VITALS: BP 105/58
[2022-07-20 08:00] VITALS: BP 115/60
[2022-07-20 16:00] VITALS: BP 113/61
--- NOTE | 2022-07-20 20:48 | NUR ---
RN NOTES: PATIENT RESTING IN HIS ROOM , NOT IN ANY APPARENT DISTRESS. PATIENT IS ABLE TO MAKE NEEDS KNOWN. PATIENT IS A CLINICAL TRIAL PATIENT OF DR. MAIN. PATIENT IS CALM AT THIS TIME. INDEPENDENT WITH ACTIVITIES. DENIES PAIN OR DISCOMFORT AT THIS TIME. ENCOURAGED PT TO VERBALIZE ANY FEELING OR CONCERN. SAFETY MEASURES IN PLACE. WILL CONTINUE TO MONITOR FOR SAFETY AND BEHAVIOR.
[2022-07-20 21:00] VITALS: BP 104/66
[2022-07-20] MEDS: ZOLPIDEM TARTRATE 10 MG TABLET PO PRN (23:55)
--- NOTE | 2022-07-20 23:56 | NUR ---
RN NOTE: INSOMNIA PATIENT IS UNABLE TO SLEEP, PRN AMBIEN 10 MG PO ADMINISTERED ORDERED BY MD. WILL CONTINUE TO MONITOR .
[2022-07-21 08:00] VITALS: BP 120/66
[2022-07-21 16:00] VITALS: BP 127/69
[2022-07-21] MEDS: ZOLPIDEM TARTRATE 10 MG TABLET PO PRN (20:04)
[2022-07-21 20:40] VITALS: BP 121/60
[2022-07-22 08:00] VITALS: BP 103/67
[2022-07-22 16:00] VITALS: BP 113/60
[2022-07-22 19:40] VITALS: BP 115/65
[2022-07-22 20:07] VITALS: BP 113/50
--- NOTE | 2022-07-22 20:10 | NUR ---
RN OPENING NOTE: RECEIVED PATIENT RESTING IN BED AND THEN WENT FOR SMOKE BREAK, NO S/S OR COMPLAINTS OF PAIN AND NO S/S OF APPARENT DISTRESS AT THIS TIME. PATIENT IS ALERT AND ORIENTED X 3, CALM, AND COOPERATIVE. PATIENT DENIES SUICIDAL AND HOMICIDAL IDEATIONS AT THIS TIME. AMBULATORY, STEADY GAIT. WILL CONTINUE TO MONITOR Q15 MINUTES FOR SAFETY.
[2022-07-22] MEDS: ZOLPIDEM TARTRATE 10 MG TABLET PO PRN (21:14)
--- NOTE | 2022-07-22 21:15 | NUR ---
RN NOTE: INSOMNIA PATIENT C/O INABILITY TO SLEEP AND WANTED TO TAKE SLEEPING MEDICINE RIGHT NOW. PRN AMBIEN 10 MG PO ADMINISTERED. WILL CONTINUE TO MONITOR.
--- NOTE | 2022-07-23 07:23 | NUR ---
RN CLOSING NOTE PATIENT SLEPT 8 HOURS AT NIGHT. NO BEHAVIOR CHANGES NOTED. PATIENT IS A & O X 3, COOPERATIVE AND CALM. ENDORSED TO AM RN FOR CONTINUITY OF CARE.
[2022-07-23 16:00] VITALS: BP 103/59
--- NOTE | 2022-07-23 18:57 | NUR ---
RN NOTES PATIENT COMPLIANT WITH CARE, COOPERATIVE, SLEPT 4 HOURS DURING DAY SHIFT . NO BEHAVIOR CHANGES NOTED. PATIENT IS A & O X 3, COOPERATIVE AND CALM. ENDORSED TO AM RN FOR CONTINUITY OF CARE.
[2022-07-23 20:02] VITALS: BP 108/63
[2022-07-23] MEDS: ZOLPIDEM TARTRATE 10 MG TABLET PO PRN (20:45)
--- NOTE | 2022-07-24 00:04 | NUR ---
RN note: Patient is isolative,blunted affect,up only fo needs,no verbalization of thoughts and feelings,pleasant,calm and cooperative upon approach.No s/s of acute distress noted.Will continue to monitor q15 min rounds for safety.
--- NOTE | 2022-07-24 09:00 | NUR ---
Patient alert ,verbally responsive ,poor insight poor judgment,preoccupied with his own thoughts ,flat affect ,no agitation at this time will continue to monitor
--- NOTE | 2022-07-24 13:00 | NUR ---
Patient remains isolative and withdrawn ,will continue to monitor for [id number] minutes.
[2022-07-24 16:00] VITALS: BP 100/56
[2022-07-24 20:09] VITALS: BP 115/50
[2022-07-24] MEDS: ZOLPIDEM TARTRATE 10 MG TABLET PO PRN (21:18)
--- NOTE | 2022-07-25 02:34 | NUR ---
RN note: Patient is isolative ,withdrawn,no social interaction ,blunted affect,no s/s of of acute distress noted.Will continue to monitor q15 min rounds for safety.
[2022-07-25 08:00] VITALS: BP 121/77
--- NOTE | 2022-07-25 09:00 | NUR ---
NURSE NOTE: PT AWAKE, ALERT, ORT X3, VERBALLY RESPONSIVE, PREOCCUPIED IN OWN THOUGHTS. FLAT AFFECT, NO AGGITATION, PT IN STABLE COND WILL CONT TO MONITOR.
--- NOTE | 2022-07-25 15:40 | NUR ---
Patient alert ,verbally responsive ,poor insight poor judgment,preoccupied with his own thoughts,pt stated "hearing voices telling him different things".Flat affect ,no agitation at this time will continue to monitor.
[2022-07-25 16:00] VITALS: BP 111/59
--- NOTE | 2022-07-25 17:10 | NUR ---
NURSE NOTE: PT C/O ANXIETY. REQUESTED ATIVAN AT THIS TIME. ADMINISTERED ORDERED. WILL CONT TO MONITOR
--- NOTE | 2022-07-25 19:30 | NUR ---
GPS RN NOTES: RECEIVED PATIENT IN ROOM LAYING IN BED, AWAKE A/O X3. PASSIVE, GUARDED, COOPERATIVE. DENIES SI, HI AT THIS TIME. NO S/S OF DISTRESS. RESPIRATION EVEN AND UNLABORED WITH EQUAL RISE AND FALL OF THE CHEST, ON ROOM AIR. PATIENT IS OFFERED FLUID AND SNACKS TOLERATED. BED IN LOW LOCKED POSITION, CALL FELIX WITHIN REACH. WILL CONTINUE TO MONITOR Q15 MINS FOR MOOD, BEHAVIOR AND SAFETY.
[2022-07-25 20:36] VITALS: BP 112/63
[2022-07-25] MEDS: ZOLPIDEM TARTRATE 10 MG TABLET PO PRN (21:36)
--- NOTE | 2022-07-25 21:38 | NUR ---
GPS RN NOTES: PATIENT REQUESTED SLEEP MEDICATION, AMBIEN 10MG GIVEN PO AT 6. WILL CONTINUE TO MONITOR.
--- NOTE | 2022-07-26 07:15 | NUR ---
RN-NOTES PATIENT NOT IN THE UNIT AT THIS TIME.
--- NOTE | 2022-07-26 10:55 | NUR ---
RN-NOTES CALLED DR. MAIN OFFICE AND SPOKE WITH REED REGARDING PATIENT IS NOT BACK YET IN THE UNIT. REED STATED THAT SHE WILL TELL DR. MAIN.
--- NOTE | 2022-07-26 11:05 | NUR ---
RN-NOTES PATIENT BACK IN THE UNIT A/0 X3,NO ACUTE DISTRESS NOTED.
[2022-07-26] MEDS ORDERED: LORAZEPAM 1 MG TABLET FOR AGITATION PO PRN (12:00)
[2022-07-26] MEDS ORDERED: ZOLPIDEM TARTRATE 10 MG TABLET PO PRN ×2 (12:00→14:30)
[2022-07-26 16:00] VITALS: BP 116/67
--- NOTE | 2022-07-26 19:22 | NUR ---
RN-NOTES PATIENT VISIBLE IN THE UNIT A/O X4,AMBULATORY STEADY GAIT,NO ACUTE DISTRESS NOTED. PATIENT OFF THE UNIT FOR SMOKING SEVERAL TIMES THIS SHIFT.WILL ENDORSE TO INCOMING NURSE FOR CONTINUITY OF CARE.
[2022-07-26 20:00] VITALS: BP 111/58
[2022-07-26] MEDS ORDERED: INVEST MED MK-8189-008-02 MISC 1 DOSE PO SCH (20:00)
--- NOTE | 2022-07-26 20:31 | NUR ---
RN NOTES: PATIENT RESTING IN HIS ROOM A/O X4 , NOT IN ANY APPARENT DISTRESS. PATIENT IS ABLE TO MAKE NEEDS KNOWN. PATIENT IS A CLINICAL TRIAL PATIENT OF DR. MAIN. PATIENT IS CALM AT THIS TIME. INDEPENDENT WITH ACTIVITIES. DENIES PAIN OR DISCOMFORT AT THIS TIME. ENCOURAGED PT TO VERBALIZE ANY FEELING OR CONCERN. SAFETY MEASURES IN PLACE. WILL CONTINUE TO MONITOR FOR SAFETY AND BEHAVIOR.
--- NOTE | 2022-07-26 23:00 | NUR ---
RN NOTES: PT. IS NPO PER MD ORDERS.
--- NOTE | 2022-07-27 06:08 | NUR ---
RN NOTE: PT. RESTING IN BED 8 HOURS OF SLEEP, VERBALLY RESPONSIVE, PREOCCUPIED IN OWN THOUGHTS. CALM COOPERTIVE, NO BEHAVIOR PROBLEMS NOTED, NO ACUTE DISTRESS NOTED, WILL CONTINUE TO MONITOR FOR SAFETY AND BEHAVIOR.
--- NOTE | 2022-07-27 09:00 | NUR ---
NURSE NOTE:PATIENT IN THE ROOM AWAKE,A/O X3 CALM,NO ACUTE DISTRESS NOTED.WILL CONT. MONITORING FOR SAFETY AND BEHAVIOR.
--- NOTE | 2022-07-27 09:30 | NUR ---
RN-NOTES PATIENT WAS DIRECTOR SAFETY BY DR. MAIN'S STAFF IN STABLE CONDITION.
[2022-07-27] MEDS ORDERED: LORAZEPAM 1 MG TABLET FOR AGITATION PO PRN (12:00)
--- NOTE | 2022-07-27 12:30 | NUR ---
RN-NOTES PATIENT IS BACK IN THE UNIT IN STABLE CONDITION.
[2022-07-27 16:00] VITALS: BP 124/81
--- NOTE | 2022-07-27 18:55 | NUR ---
RN-NOTES PATIENT VISIBLE IN THE UNIT A/O X4,AMBULATORY STEADY GAIT,NO ACUTE DISTRESS NOTED. PATIENT OFF THE UNIT FOR SMOKING SEVERAL TIMES THIS SHIFT.ABLE TO MAKE NEEDS KNOWN TO THE STAFF. ALL NEEDS ATTENDED AND MET.WILL ENDORSE TO INCOMING NURSE FOR CONTINUITY OF CARE.
--- NOTE | 2022-07-27 19:30 | NUR ---
GPS RN NOTE, RECEIVED PATIENT AWAKE AND IN BED, NO S/S OR COMPLAINTS OF PAIN AT THIS TIME. PATIENT IS DISPLAYING NO S/S OF APPARENT DISTRESS AT THIS TIME. PATIENT BREATHING IS UNLABORED WITH EQUAL RISE AND FALL OF THE CHEST. PATIENT IS ALERT AND ORIENTED X 3 ON ROOM AIR WITH A SPO2 95%. PATIENT IS COMPLIANT WITH MEDICATIONS, CALM, AND COOPERATIVE. PATIENT DENIES SUICIDAL AND HOMICIDAL IDEATIONS AT THIS TIME. PATIENT ASSISTED WITH TURNING AND REPOSITIONING Q2HR AND PRN FOR COMFORT AND CIRCULATION. PATIENT HAS NO NEEDS AT THIS TIME. PATIENT EDUCATED ON THE USE OF THE CALL FELIX. PATIENT BED SIDE RAILS UP X 2 FOR SAFETY. PATIENT BED IS LOCKED, LOW, WITH BED ALARM ON. WILL CONTINUE TO MONITOR THIS PATIENT Q15 MINUTES WITH THE HELP OF STAFF TO MAINTAIN SAFETY.
[2022-07-27] MEDS: INVEST MED MK-8189-008-02 MISC 1 DOSE PO SCH (20:16)
[2022-07-27] MEDS: ZOLPIDEM TARTRATE 10 MG TABLET PO PRN (20:34)
[2022-07-27 20:38] VITALS: BP 122/64
[2022-07-28 08:00] VITALS: BP 110/56
[2022-07-28 16:00] VITALS: BP 100/67
--- NOTE | 2022-07-28 18:08 | NUR ---
RN-NOTES PATIENT VISIBLE IN THE UNIT CALM,COOPERATIVE A/O X4,AMBULATORY STEADY GAIT,NO ACUTE DISTRESS NOTED. PATIENT OFF THE UNIT FOR SMOKING SEVERAL TIMES THIS SHIFT.ABLE TO MAKE NEEDS KNOWN TO THE STAFF. ALL NEEDS ATTENDED AND MET.WILL ENDORSE TO INCOMING NURSE FOR CONTINUITY OF CARE.
--- NOTE | 2022-07-28 19:15 | NUR ---
GPS RN NOTES RECEIVED PATIENT IN BED AWAKE, ALERT AND ORIENTED X3. NO S/SX OF ACUTE DISTRESS NOTED. BLUNTED AFFECT, MED COMPLIANT. PT HAS SMOKING PRIVILEGES PER PROTOCOL. NO VERBALIZATION OF THOUGHTS AND FEELINGS. ON INVESTIGATIONAL MEDS WITH NO ADVERSE REACTIONS NOTED. NO EPS, NO TREMORS NOTED. SAFETY PRECAUTIONS MAINTAINED. WILL CONTINUE TO MONITOR Q15MIN ROUNDS FOR SAFETY AND BEHAVIOR.
[2022-07-28] MEDS: INVEST MED MK-8189-008-02 MISC 1 DOSE PO SCH (20:06)
[2022-07-28 20:59] VITALS: BP 104/64
[2022-07-28] MEDS: ZOLPIDEM TARTRATE 10 MG TABLET PO PRN (21:18)
[2022-07-29 08:00] VITALS: BP 100/54
--- NOTE | 2022-07-29 10:03 | NUR ---
RN-CO: RECEIVED PATIENT LYING IN BED AWAKE,A/O X3 CALM,NO ACUTE DISTRESS NOTED.WILL CONT. MONITORING FOR SAFETY AND BEHAVIOR.PATIENT STATED THAT HE HAS AUDITORY HALLUCINATIONS TELLING HIM TO SMOKE.AT THIS TIME HE DENIES PAIN AND DISCOMFORTS.
[2022-07-29 16:00] VITALS: BP 105/52
[2022-07-29] MEDS: INVEST MED MK-8189-008-02 MISC 1 DOSE PO SCH (20:08)
[2022-07-29 20:31] VITALS: BP 105/55
--- NOTE | 2022-07-29 20:46 | NUR ---
RN note: Received patient in bed awake,isolative,limited interactions with staff,appears to be depressed and unmotivated.Patient is compliant with medications,no s/s of adverse reactions of the medications given.No s/s of acute distress noted.Will continue to monitor q15 min rounds for safety.
[2022-07-29] MEDS: ZOLPIDEM TARTRATE 10 MG TABLET PO PRN (21:12)
--- NOTE | 2022-07-30 03:49 | NUR ---
patient c/o difficulty falling asleep;requested and given Ambien 10 mg PO as ordered with good effect.
[2022-07-30 08:00] VITALS: BP 108/58
--- NOTE | 2022-07-30 09:00 | NUR ---
Patient alert ,verbally responsive ,poor insight poor judgment,no interaction with peers ,pt responding to internal stimuli preoccupied with his own thoughts ,flat affect ,no agitation at this time will continue to monitor .
--- NOTE | 2022-07-30 10:45 | NUR ---
PT MEDICATED WITH TYLENOL 650MG FOR HEADACHE 08/13 WILL CONTINUE TO MONITOR .
--- NOTE | 2022-07-30 13:00 | NUR ---
Patient remains isoaltive and withdrawn ,will continue to monitor for safety q15 minutes.
[2022-07-30 16:00] VITALS: BP 101/56
[2022-07-30] MEDS: INVEST MED MK-8189-008-02 MISC 1 DOSE PO SCH (20:01)
--- NOTE | 2022-07-30 20:05 | NUR ---
RN note: Patient in bed awake,laying in bed,isolative,withdrawn,no social interactions with others,blunted affect,appears to be preoccupied to his own thought process.Patient took his scheduled investigational medications.No c/o of adverse effects the medications that was given.No s/s of acute distress noted.Will continue to monitor q15 min rounds for safety.
[2022-07-30] MEDS: ZOLPIDEM TARTRATE 10 MG TABLET PO PRN (21:19)
[2022-07-30 22:52] VITALS: BP 101/55
--- NOTE | 2022-07-31 05:44 | NUR ---
Patient c/o difficulty staying asleep,requested and given Ambien 10 mg PO with good effect.
[2022-07-31 08:00] VITALS: BP 110/65
--- NOTE | 2022-07-31 11:45 | NUR ---
RN-CO: RECEIVED PATIENT LYING IN BED AWAKE,A/O X3 CALM,NO ACUTE DISTRESS NOTED.WILL CONT. MONITORING FOR SAFETY AND BEHAVIOR.PATIENT STATED THAT HE HAS AUDITORY HALLUCINATIONS TELLING HIM TO SMOKE. AT THIS TIME HE DENIES PAIN AND DISCOMFORTS.
[2022-07-31 16:11] VITALS: BP 104/68
[2022-07-31] MEDS: INVEST MED MK-8189-008-02 MISC 1 DOSE PO SCH (20:21)
[2022-07-31] MEDS: ZOLPIDEM TARTRATE 10 MG TABLET PO PRN (21:11)
--- NOTE | 2022-07-31 22:00 | NUR ---
RN note: Patient is compliant with medications;no c/o adverse reaction of investigational medications,Patient appears to be depressed,guarded and unmotivated.;isolative ,withdrawn,no social interactions ;no verbalization of thoughts and feeling,remains to himself.NO s/s of acute distress noted.Will continue to monitor q15 min rounds for safety.
--- NOTE | 2022-07-31 22:04 | NUR ---
RN note: Patient requested a sleeping pill;given Ambien 10 mg PO with good ffect.
[2022-07-31 22:14] VITALS: BP 108/53
[2022-07-31 22:19] VITALS: BP 108/53
[2022-08-01 08:00] VITALS: BP 109/65
--- NOTE | 2022-08-01 09:43 | NUR ---
RN-CO: Patient is calm and cooperative to care. He denied suicidal and homicidal ideations. He denied suditory and visual hallucinations. No acute distress noted. Dr Lopez ordered to discharge patient today and his staff Abhinav SHEEHAN will pick him up noted. Patient signed all discharge papers and all belongings were taken by the pt.
[2022-08-03] MEDS ORDERED: LORAZEPAM 1 MG TABLET FOR AGITATION PO PRN (12:00)
[2022-08-03] MEDS ORDERED: ZOLPIDEM TARTRATE 10 MG TABLET PO PRN (12:00)
[2022-08-10] MEDS ORDERED: LORAZEPAM 1 MG TABLET FOR AGITATION PO PRN (12:00)
[2022-08-10] MEDS ORDERED: ZOLPIDEM TARTRATE 10 MG TABLET PO PRN (12:00)
[2022-08-17] MEDS ORDERED: LORAZEPAM 1 MG TABLET FOR AGITATION PO PRN (12:00)
[2022-08-17] MEDS ORDERED: ZOLPIDEM TARTRATE 10 MG TABLET PO PRN (12:00)
[2022-08-24] MEDS ORDERED: LORAZEPAM 1 MG TABLET FOR AGITATION/ANXIETY PO PRN (12:00)
[2022-08-24] MEDS ORDERED: ZOLPIDEM TARTRATE 10 MG TABLET PO PRN (12:00)
[2022-08-30] MEDS ORDERED: LORAZEPAM 1 MG TABLET FOR AGITATION/ANXIETY PO PRN (12:00)
[2022-08-31] MEDS ORDERED: ZOLPIDEM TARTRATE 10 MG TABLET PO PRN (12:00)
[2022-09-07] MEDS ORDERED: ZOLPIDEM TARTRATE 10 MG TABLET PO PRN (12:00)
[2022-09-07] MEDS ORDERED: LORAZEPAM 1 MG TABLET FOR AGITATION/ANXIETY PO PRN (12:00)
== END 2022-08-01 10:08 | disposition home or self-care (01) | DRG 951 ==
LOC: GPS 14:37
PROVIDERS: ADMIT Psychiatry & Neurology Psychiatry; ATTEND Psychiatry & Neurology Psychiatry
DX: Z00.6 Encounter for examination for normal comparison and control in clinical research program (principal); F20.0 Paranoid schizophrenia; Z20.822 Contact with and (suspected) exposure to COVID-19; Z79.899 Other long term (current) drug therapy; G47.00 Insomnia, unspecified

== ENCOUNTER 2022-09-09 01:56 | Emergency (ER) | payer MEDICARE, OTHER ==
[~2022-09-09] VITALS: Ht 175.3 cm; Wt 101.6 kg
--- NOTE | 2022-09-09 02:14 | NUR ---
BIBS. TO ER BED 18. AAOX4. NOT IN RESP DISTRESS. AMBUALTORY. CAME IN MEDICAL CLEARANCE FOR VOLUNTARY PSYCH ADMISSION FOR SUICIDAL IDEATION W. THOUGHTS OF RUNNING INTO TRAFFIC. PT CORNEL [place]ORDO[place]. PT WAS PLACED IN A GOWN, BELONGINGS TAKEN AWAY, VISUALLY AND INSPECTED AND WANDED BY SECURITY. URINE AND COVID SWAB COLLECTED, SEN TO LAB. SITTER WITHIN SIGHT
[2022-09-09 02:47] LABS: BASOPHILS % (AUTO) 0.2 % (0.0-2.0); EOSINOPHILS % (AUTO) 3.7 % (0.0-6.0); HEMATOCRIT 46 % (39-51); HEMOGLOBIN 15.6 g/dL (13.5-17.5); LYMPHOCYTES # (AUTO) 1.8 K/uL (0.8-4.8); MEAN CORPUSCULAR HGB CONC 34 g/dl (31.0-36.0); MEAN CORPUSCULAR VOLUME 82 fL (80-96); MONOCYTES # (AUTO) 0.9 K/uL (0.1-1.30); MONOCYTES % (AUTO) 8.7 % (2.0-12.0); NEUTROPHILS # (AUTO) 6.9 K/uL (1.8-8.9); NEUTROPHILS % (AUTO) 69.4 % (43.0-81.0); PLATELET COUNT (AUTO) 264 K/uL (150-450); WHITE BLOOD COUNT (AUTO) 9.9 K/uL (4.3-11.0)
[2022-09-09 02:53] LABS: CALCIUM, SERUM 9.4 mg/dL (8.5-10.1); CARBON DIOXIDE 29 mmol/L (21-32); CHLORIDE 101 mmol/L (98-107); GLUCOSE 108 mg/dL (74-106); SODIUM SERUM 135 mmol/L (136-145); UREA NITROGEN, BLOOD 6 mg/dL (7-18)
[2022-09-09 02:59] LABS: ALANINE AMINOTRANSFERASE 32 U/L (12-78); ALBUMIN 4.1 g/dL (3.4-5.0); ALCOHOL, BLOOD < 3 mg/dL (0-0); ALKALINE PHOSPHATASE 122 U/L (46-116); ASPARTATE AMINOTRANSFERASE 22 U/L (15-37); BILIRUBIN,DIRECT 0.2 mg/dL (0.0-0.2); BILIRUBIN,TOTAL 0.5 mg/dL (0.2-1.0); TOTAL PROTEIN, SERUM 8.4 g/dL (6.4-8.2)
[2022-09-09 03:02] LABS: ACETAMINOPHEN 0 ug/ml (10-30)
--- NOTE | 2022-09-09 03:18 | NUR ---
PT STATES "NO LONGER HAS THOUGHTS OF SI, DOES NOT WANT TO PROCEED WITH VOLUNTARY ADMISSION TO [facility]". MADE AWARE
[2022-09-14 19:17] VITALS: BP 119/76
== END 2022-09-09 19:17 | disposition home or self-care (01) ==
LOC: ER 02:01
DX: R45.851 Suicidal ideations (principal); F17.200 Nicotine dependence, unspecified, uncomplicated; Z88.8 Allergy status to other drugs, medicaments and biological substances
CPT/HCPCS: 36415; 80048-TC; 80076-TC; 85025-TC; G0480

== ENCOUNTER 2025-03-04 21:36 | Emergency (ER) | payer MEDICARE, OTHER ==
[~2025-03-04] VITALS: Ht 175.3 cm; Wt 129.3 kg
[2025-03-04 22:25] LABS: BASOPHILS # (AUTO) 0.1 K/uL (0.0-0.2); BASOPHILS % (AUTO) 0.8 % (0.0-2.0); EOSINOPHILS # (AUTO) 0.7 K/uL (0.0-0.7); EOSINOPHILS % (AUTO) 6.5 % (0.0-6.0); HEMATOCRIT 41 % (39-51); HEMOGLOBIN 13.8 g/dL (13.5-17.5); LYMPHOCYTES # (AUTO) 2.6 K/uL (0.8-4.8); MEAN CORPUSCULAR HEMOGLOBIN 27 PG (26.0-33.0); MEAN CORPUSCULAR HGB CONC 34 g/dl (31.0-36.0); MEAN CORPUSCULAR VOLUME 81 fL (80-96); MONOCYTES # (AUTO) 0.8 K/uL (0.1-1.30); MONOCYTES % (AUTO) 7.8 % (2.0-12.0); NEUTROPHILS # (AUTO) 6.2 K/uL (1.8-8.9); NEUTROPHILS % (AUTO) 59.9 % (43.0-81.0); PLATELET COUNT (AUTO) 290 K/uL (150-450); RED BLOOD CELL COUNT(AUTO) 5.07 MIL/uL (4.5-6.0); RED CELL DISTRIBUTION WIDTH 16.6 % (11.5-15.0); WHITE BLOOD COUNT (AUTO) 10.4 K/uL (4.3-11.0)
[2025-03-04 22:27] LABS: APPEARANCE,URINE CLEAR (CLEAR); BILIRUBIN,URINE NEGATIVE (NEGATIVE); BLOOD, URINE NEGATIVE Ery/uL (NEGATIVE); COLOR,URINE YELLOW (YELLOW); KETONES,URINE NEGATIVE (NEGATIVE); LEUKOCYTE ESTERASE ,URINE NEGATIVE (NEGATIVE); NITRITE, URINE NEGATIVE (NEGATIVE); PROTEIN,URINE NEGATIVE (NEGATIVE); UGLUCOSE NEGATIVE (NEGATIVE); UROBILINOGEN,URINE 0.2 EU/dL (0.2)
[2025-03-04 22:32] LABS: CALCIUM, SERUM 9.4 mg/dL (8.5-10.1); CARBON DIOXIDE 30 mmol/L (21-32); CHLORIDE 103 mmol/L (98-107); CREATININE 0.8 mg/dL (0.6-1.3); GLUCOSE 92 mg/dL (74-106); POTASSIUM 3.4 mmol/L (3.5-5.1); SODIUM SERUM 138 mmol/L (136-145); UREA NITROGEN, BLOOD 8 mg/dL (7-18)
[2025-03-04 22:40] LABS: ALANINE AMINOTRANSFERASE 29 U/L (12-78); ALBUMIN 3.5 g/dL (3.4-5.0); ALKALINE PHOSPHATASE 146 U/L (46-116); ASPARTATE AMINOTRANSFERASE 22 U/L (15-37); BILIRUBIN,DIRECT 0.1 mg/dL (0.0-0.2); BILIRUBIN,TOTAL 0.2 mg/dL (0.2-1.0); SALICYLATE 2.9 mg/dL (2.8-20.0)
[2025-03-04 22:42] LABS: AMPHETAMINE, URINE NEGATIVE (NEGATIVE); BARBITURATE, URINE NEGATIVE (NEGATIVE); CANNABINOID, URINE NEGATIVE (NEGATIVE); COCCAINE, URINE NEGATIVE (NEGATIVE); OPIATE, URINE NEGATIVE (NEGATIVE); PHENCYCLIDINE SCREEN,URINE NEGATIVE (NEGATIVE)
[2025-03-04 22:42] LABS: ACETAMINOPHEN <10 ug/ml (10-30); ALCOHOL, BLOOD < 3 mg/dL (0-10)
[2025-03-04 22:50] LABS: BENZODIAZEPINE, URINE POSITIVE (NEGATIVE)
[2025-03-05 05:16] VITALS: BP 122/78; TEMP 98.2; O2SAT 98
== END 2025-03-05 05:17 ==
LOC: ER 21:38
DX: F32.A Depression, unspecified (principal); R45.851 Suicidal ideations; F20.0 Paranoid schizophrenia; F17.200 Nicotine dependence, unspecified, uncomplicated; Z79.899 Other long term (current) drug therapy; Z20.822 Contact with and (suspected) exposure to COVID-19
CPT/HCPCS: 36415; 80048-TC; 80076-TC; 85025-TC; G0480